=== PATIENT | male | born 2000 | race Two or more races ===

== ENCOUNTER 2021-04-23 11:56 | Inpatient (IN) ==
[2021-04-23] MEDS ORDERED: ACETAMINOPHEN 1,000 MG/100 ML VIAL IV STA (12:27)
[2021-04-23] MEDS ORDERED: KETOROLAC TROMETHAMINE 15 MG/ML VIAL IV STA (12:27)
[2021-04-23] MEDS ORDERED: SODIUM CHLORIDE 0.9% 1000ML 1,000 ML IV ONE (12:27)
[2021-04-23] MEDS ORDERED: FAMOTIDINE 20MG IV PUSH 20 MG/5 ML SYR IV STA (12:28)
--- NOTE | 2021-04-23 12:45 | Emergency Department Note ---
Impression & Plan Myocarditis, Pericarditis, Elevated troponin ED Provider Note NAME: CATRACHITA ESPINO AGE: 20 SEX: M ARRIVES VIA: Walk-In INFORMANT: Patient ED PROVIDER(S): Donell Coreas MD CHIEF COMPLAINT: Chest pain, SOB PLAN: Disposition: Admit. MEDICAL DECISION MAKING: The patient is a pleasant 20-year-old gentleman with a past medical history of bipolar disorder on lithium who presents to the emergency department for evaluation of left-sided chest pain that radiates to his shoulder and jaw that began last night and has been constant. He reports some mild associated shortness of breath. He reports prior history of smoking but quit in the past year. He reports he has a family history of stroke but denies any family history of early heart disease or known family history of clotting disorder. He denies any recent immobilization, prolonged travel. He denies any recent cough, congestion, fevers, chills. He is vaccinated for COVID-19 with 2 dose series but has yet to receive his booster. On arrival the patient is no acute distress, afebrile with heart rate in the 100s and blood pressure 160-180s/100s in the setting of discomfort. He appears clinically dry. EKG without overt acute ischemia; no LA depressions, ST elevation. Negative Sp odick's sign. CXR negative for acute cardiopulmonary process. WBC 4.2K nonspecific. H/H and platelets within normal limits. Chemistry without metabolic acidosis. Electrolytes and LFTs unremarkable. The patient's troponin was elevated at 8.7. D-dimer was undetectable. Ruhenstroth level was not elevated. COVID-19 RNA, CHRIS test was negative. CTA of the chest was performed and was negative for PE or infiltrates. No pericardial effusion is noted. Upon reevaluation the patient did feel improved after IV fluid hydration, APAP, Toradol as well as Pepcid. He was given aspirin given his troponin elevation. However given the patient's description of symptoms which are worse when he is supine suspect symptoms are most likely related to a brad-myocarditis. Case was discussed with Dr. Calhoun, [place] cardiology on-call. Appreciate consultation. Agrees that ACS is not likely and so no need for heparin at this time. Agrees with trial of colchicine. He will order an echo for further evaluation. Patient agrees with plan for admission for further evaluation and management. Case was d/w Dr. North, [facility] hospitalist who will evaluate the patient for admission. Triage Nursing notes reviewed and agree them. Prior medical records reviewed Vital Signs: reviewed and remarkable for hypertension. Differential diagnosis: Cardiac ischemia, aortic dissection, pulmonary embolism, pneumothorax, pneumonia, pericarditis, myocarditis, esophageal rupture, GERD, cholecystitis, pancreatitis, musculoskeletal, as well as other pathologies. ER treatment provided: See below. Diagnostics interpreted by me: ECG: Normal sinus rhythm, 70 bpm, no ectopy, no overt ST elevation or depression, QTC 423, QRS 82. Cardiac Monitoring: An order for continuous cardiac monitoring was placed and demonstrated Normal sinus rhythm, 70 bpm, no ectopy. Laboratory studies: See below Imaging studies: See below Consultation(s): Dr. Calhoun, [place] [facility]ology on-call. Case was d/w Dr. North, [facility] hospitalist who will evaluate the patient for admission. HPI: The patient is a pleasant 20-year-old gentleman with a past medical history of bipolar disorder on lithium who presents to the emergency department for evaluation of left-sided chest pain that radiates to his shoulder and jaw that began last night and has been constant. He reports some mild associated shortness of breath. He reports prior history of smoking but quit in the past year. He reports he has a family history of stroke but denies any family history of early heart disease or known family history of clotting disorder. He denies any recent immobilization, prolonged travel. He denies any recent cough, congestion, fevers, chills. He is vaccinated for COVID-19 with 2 dose series but has yet to receive his booster. ROS: See above HPI for pertinent positives & negatives. A total of 10 systems reviewed and were otherwise negative. PAST MEDICAL HISTORY:See Below PAST SURGICAL HISTORY:See Below FAMILY HISTORY:See Below SOCIAL HISTORY:See Below HOME MEDICATIONS:See Below ALLERGIES:See Below VITALS:See Below PHYSICAL EXAMINATION: GENERAL: Awake, alert, relatively well-appearing, in no distress HENT: Normocephalic, atraumatic. Oropharynx with dry mucous membranes and otherwise unremarkable. EYES: Normal conjunctiva. Sclera non-icteric. NECK: Supple. No nuchal rigidity. FROM. No JVD. RESPIRATORY: Clear to auscultation. CARDIAC: Regular rate, normal rhythm. Extremities warm and well perfused. Pulses equal. ABDOMEN: Soft, non-distended. No tenderness to palpation. No rebound or guarding. No masses. RECTAL: Deferred. MUSCULOSKELETAL: Chest examination reveals no tenderness. The back is symmetrical on inspection without obvious abnormality. There is no CVA tenderness to palpation. No joint edema. LOWER EXTREMITIES: Calves are equal size bilaterally and non-tender. No edema. No discoloration. NEURO: Normal sensorium. No sensory or motor deficits noted. SKIN: No rash or jaundice noted. ED COURSE: Critical Care: I have personally spent greater than 35 minutes of critical care time in the direct management of this patient. This includes bedside care, interpretation o f diagnostic studies, and testing, discussion with consultants, patient, and family members, and other required patient management activities. This 35 minutes is in excess of all separately billable procedures. Donell Coreas MD Past Med/Surg History Medical History Bipolar disorder Family History Other Stroke Social History Smoking Status: Former smoker Feels Safe at Home: Yes Allergies Allergies Allergy/AdvReac Type Severity Reaction Status Date / Time No Known Allergies Allergy Verified 04/23/21 15:46 Home Meds Home Medications Medication Instructions Recorded Confirmed lithium carbonate 450 mg 900 mg PO QPM 04/23/21 04/23/21 tablet,extended release lurasidone 20 mg tablet (Latuda) 20 mg PO DAILY 04/23/21 04/23/21 Results & Data (ED) Vital Signs Vital Signs - 24 hr 04/23/21 11:58 04/23/21 12:24 Temperature 36.2 C L Temperature Source Temporal Artery Scan Oral Pulse Rate 100 H Respiratory Rate 18 Respiratory Effort / Characteristics Non-Labored Non-Labored Respiratory Depth Normal Normal Blood Pressure 163/111 H Blood Pressure Mean 128 Pulse Oximetry 97 Oxygen Delivery Method Room Air Room Air Sepsis Recent Fever Within 48 Hours No Sepsis New/Unexplained Change in Mental Status No Sepsis Action Taken by Nursing No Action Required Laboratory Data Attestation: I reviewed the patient's lab results. Result diagrams: 04/23/21 12:45 04/23/21 12:45 Lab Results 02/23/22 02/23/22 02/23/22 Range/Units 12:45 12:45 12:45 WBC 4.28 L (4.8-10.8) K/uL RBC 5.07 (4.7-6.1) M/uL Hgb 14.0 (14.0-18.0) g/dL Hct 42.8 (42-52) % MCV 84.4 (80-100) fL MCH 27.6 (25-34) pg MCHC 32.7 (32-36) g/dL RDW Std Deviation 38.5 (36.4-46.3) fL RDW Coeff of J Luis 12.8 (11.5-14.5) % Plt Count 262 (130-400) K/uL MPV 10.0 (7.4-10.4) fL Immature Gran % (Auto) 0.5 % Neut % (Auto) 51.1 % Lymph % (Auto) 33.6 % [place] % (Auto) 12.9 % Eos % (Auto) 1.9 % Baso % (Auto) 0.0 % Neut # (Auto) 2.19 (1.4-6.5) K/uL Lymph # (Auto) 1.44 (1.2-3.4) K/uL [place] # (Auto) 0.55 (0.11-0.59) K/uL Eos # (Auto) 0.08 (0-0.5) K/uL Baso # (Auto) 0.00 (0-0.2) K/uL Immature Gran # (Auto) 0.02 (0.00-0.02) K/uL D-Dimer < 190 (0-500) ug/L FEU Sodium 135 L (136-145) mmol/L Potassium 3.9 (3.5-5.1) mmol/L Chloride 103 (98-107) mmol/L Carbon Dioxide 25 (21-32) mmol/L Anion Gap 7 (3-11) BUN 13 (6-23) mg/dl Creatinine 0.72 (0.6-1.4) mg/dl Est Cr Clr Drug Dosing 207.8 ml/min Est GFR ( Amer) > 150.0 ml/min Est GFR (Non-Af Amer) 135.2 ml/min BUN/Creatinine Ratio 18.1 (10-20) Glucose 93 (70-99(Fasting)) mg/dl Calcium 9.2 (8.5-10.1) mg/dl Phosphorus (2.5-4.9) mg/dl Magnesium 1.8 (1.7-2.4) mg/dl Total Bilirubin 0.8 (0.2-1.0) mg/dl AST 42 H (13-39) U/L ALT 26 (7-52) U/L Alkaline Phosphatase 89 (34-104) U/L Troponin I 8.77 H* (0-0.04) ng/ml Total Protein 7.2 (6.0-8.3) gm/dl Albumin 4.2 (3.4-5.0) gm/dl Globulin 3.0 (2.5-4.0) gm/dl Albumin/Globulin Ratio 1.4 (0.9-2) Lipase 7 L (11-82) U/L Ruhenstroth (0.6-1.2) mmol/L SARS-CoV-2, RNA, NAAT (NEGATIVE) 04/23/21 04/23/21 04/23/21 Range/Units 12:55 14:01 14:01 WBC (4.8-10.8) K/uL RBC (4.7-6.1) M/uL Hgb (14.0-18.0) g/dL Hct (42-52) % MCV (80-100) fL MCH (25-34) pg MCHC (32-36) g/dL RDW Std Deviation (36.4-46.3) fL RDW Coeff of J Luis (11.5-14.5) % Plt Count (130-400) K/uL MPV (7.4-10.4) fL Immature Gran % (Auto) % Neut % (Auto) % Lymph % (Auto) % [place] % (Auto) % Eos % (Auto) % Baso % (Auto) % Neut # (Auto) (1.4-6.5) K/uL Lymph # (Auto) (1.2-3.4) K/uL [place] # (Auto) (0.11-0.59) K/uL Eos # (Auto) (0-0.5) K/uL Baso # (Auto) (0-0.2) K/uL Immature Gran # (Auto) (0.00-0.02) K/uL D-Dimer (0-500) ug/L FEU Sodium (136-145) mmol/L Potassium (3.5-5.1) mmol/L Chloride (98-107) mmol/L Carbon Dioxide (21-32) mmol/L Anion Gap (3-11) BUN (6-23) mg/dl Creatinine (0.6-1.4) mg/dl Est Cr Clr Drug Dosing ml/min Est GFR ( Amer) ml/min Est GFR (Non-Af Amer) ml/min BUN/Creatinine Ratio (10-20) Glucose (70-99(Fasting)) mg/dl Calcium (8.5-10.1) mg/dl Phosphorus 2.8 (2.5-4.9) mg/dl Magnesium (1.7-2.4) mg/dl Total Bilirubin (0.2-1.0) mg/dl AST (13-39) U/L ALT (7-52) U/L Alkaline Phosphatase (34-104) U/L Troponin I (0-0.04) ng/ml Total Protein (6.0-8.3) gm/dl Albumin (3.4-5.0) gm/dl Globulin (2.5-4.0) gm/dl Albumin/Globulin Ratio (0.9-2) Lipase (11-82) U/L Ruhenstroth 0.4 L (0.6-1.2) mmol/L SARS-CoV-2, RNA, NAAT NEGATIVE (NEGATIVE) Administered Medications Discontinued Medications Aspirin (Aspirin Chew 324 Mg) 324 mg PO NOW STA Stop: 04/23/21 13:34 Last Admin: 04/23/21 13:38 Dose: 324 mg Documented by: [id number] Colchicine (Colchicine 0.6 Mg Tab) 0.6 mg PO NOW ONE Stop: 04/23/21 15:28 Last Admin: 04/23/21 16:06 Dose: 0.6 mg Documented by: [id number] Sodium Chloride (Nss 1000ml) 1,000 mls @ 999 mls/hr IV .Q1H1M ONE Stop: 04/23/21 13:27 Last Infusion: 04/23/21 13:41 Dose: 0 mls/hr Documented by: [id number] Admin: 04/23/21 12:40 Dose: 999 mls/hr Documented by: [id number] Acetaminophen (Ofirmev) 1,000 mg in 100 mls @ 400 mls/hr IV NOW STA Stop: 04/23/21 12:41 Last Infusion: 04/23/21 13:00 Dose: 0 mls/hr Documented by: [id number] Admin: 04/23/21 12:40 Dose: 400 mls/hr Documented by: [id number] Famotidine (Pepcid 20mg Iv Push) 20 mg in 5 mls @ 2.5 mls/min IV NOW STA Stop: 04/23/21 12:29 Last Admin: 04/23/21 12:40 Dose: 2.5 mls/min Documented by: [id number] Ioversol (Optiray 320 125ml) 118 ml IV ONCE ONE Stop: 04/23/21 14:24 Last Admin: 04/23/21 14:24 Dose: 118 ml Documented by: [id number] Ketorolac Tromethamine (Ketorolac Tromethamine 15 Mg/Ml Vial) 15 mg IV NOW STA Stop: 04/23/21 12:28 Last Admin: 04/23/21 12:40 Dose: 15 mg Documented by: [id number] Imaging Data Radiologist's Impression: Chest X-Ray 04/23/21 12:24 XR chest 1V portable HISTORY: Left-sided Chest Pain COMPARISON: None. FINDINGS: There are low lung volumes. Lungs are clear. No pleural effusions. No pneumothorax. No evidence for pulmonary edema. The cardiac silhouette is borderline enlarged. This may be accentuated by the low lung volumes and AP portable technique. IMPRESSION: Borderline cardiomegaly which may be accentuated by the low lung volumes and AP portable technique. ACT 112: Negative or not required by law. Electronically signed by: Angel Flores M.D. 04/23/2021 12:57 PM Chest CTA 04/23/21 13:33 CHEST CTA for PULMONARY ARTERIES CT DOSE: 523.94 mGycm HISTORY: Left-sided chest pain. Elevated troponin. TECHNIQUE: Multiaxial CT images of the chest were performed following the intravenous administration of contrast to evaluate the pulmonary arteries. Maximal intensity projection images were also obtained. A dose lowering technique was utilized adhering to the principles of ALARA. COMPARISON STUDY: None. FINDINGS: Normal caliber thoracic aorta with no evidence for dissection. The heart is normal in size. No pleural or pericardial effusions. No filling defects within the pulmonary arteries to suggest a pulmonary embolus. The thyroid gland enhances normally. Normal esophagus. Limited views of the upper abdomen demonstrate a normal liver, spleen, and visualized adrenal glands. Bilateral gynecomastia is noted. No mediastinal or hilar lymphadenopathy. No acute fractures. No pneumothorax. The central airways are patent. The lungs are clear. IMPRESSION: No evidence for pulmonary embolus. ACT 112: Negative or not required by law. Electronically signed by: Angel Flores M.D. 04/23/2021 2:53 PM Discharge Plan Visit Data Chief Complaint: Chest Pain Stated Complaint: CHEST PAIN, LT ARM AND SHOULDER PAIN ED Provider: Donell Coreas Discharge Problem: Myocarditis, Pericarditis, Elevated troponin Forms Stand Alone Forms: [employer] Prescriptions Prescriptions: No Action lithium carbonate 450 mg tablet extended release 900 mg PO QPM RF: 0 Latuda 20 mg tablet 20 mg PO DAILY RF: 0 Referrals Referrals: PCP,NO [Physician] - Discharge Problem: Myocarditis Qualifiers: Myocarditis type: unspecified Chronicity: acute Qualified Code(s): I40.9 - Acute myocarditis, unspecified Pericarditis Qualifiers: Pericarditis type: unspecified type Chronicity: acute Qualified Code(s): I30.9 - Acute pericarditis, unspecified
[2021-04-23 12:52] LABS: Eosinophils # (auto) 0.08 K/uL (0-0.5); Eosinophils % (auto) 1.9 %; Hematocrit (blood only) 42.8 % (42-52); Immature Granulocytes # (auto) 0.02 K/uL (0.00-0.02); Immature Granulocytes % (auto) 0.5 %; Lymphocytes # (auto) 1.44 K/uL (1.2-3.4); Lymphocytes % (auto) 33.6 %; Mean Corpuscular Hemoglobin 27.6 pg (25-34); Mean Corpuscular Hgb Conc 32.7 g/dL (32-36); Mean Corpuscular Volume 84.4 fL (80-100); Monocytes # (auto) 0.55 K/uL (0.11-0.59); Monocytes % (auto) 12.9 %; Neutrophils # (auto) 2.19 K/uL (1.4-6.5); Neutrophils % (auto) 51.1 %; Platelet Count 262 K/uL (130-400); RDW Coefficient of Variation 12.8 % (11.5-14.5); RDW Standard Deviation 38.5 fL (36.4-46.3); Red Blood Count 5.07 M/uL (4.7-6.1); White Blood Count 4.28 K/uL (4.8-10.8)
--- NOTE | 2021-04-23 12:58 | XRay Report ---
XR chest 1V portable HISTORY: Left-sided Chest Pain COMPARISON: None. FINDINGS: There are low lung volumes. Lungs are clear. No pleural effusions. No pneumothorax. No evid ence for pulmonary edema. The cardiac silhouette is borderline enlarged. This may be accentuated by t he low lung volumes and AP portable technique. IMPRESSION: Borderline cardiomegaly which may be accentuated by the low lung volumes and AP portable technique. ACT 112: Negative or not required by law. Electronically signed by: Angel Floers M.D. 04/23/2021 12:57 PM
[2021-04-23 13:02] LABS: D Dimer < 190 ug/L FEU (0-500)
[2021-04-23 13:15] LABS: Alanine Aminotransferase 26 U/L (7-52); Albumin Globulin Ratio 1.4 (0.9-2); Albumin Level 4.2 gm/dl (3.4-5.0); Alkaline Phosphatase 89 U/L (34-104); Anion Gap 7 (3-11); Aspartate Aminotransferase 42 U/L (13-39); BUN Creatinine Ratio 18.1 (10-20); Bilirubin,Total 0.8 mg/dl (0.2-1.0); Blood Urea Nitrogen 13 mg/dl (6-23); Calcium 9.2 mg/dl (8.5-10.1); Carbon Dioxide 25 mmol/L (21-32); Chloride 103 mmol/L (98-107); Creatinine Clr Calc Pharmacy 207.8 ml/min; Est GFR (African American) > 150.0 ml/min; Est GFR (Non-African American) 135.2 ml/min; Glucose 93 mg/dl (70-99(Fasting)); Lipase 7 U/L (11-82); Magnesium 1.8 mg/dl (1.7-2.4); Potassium 3.9 mmol/L (3.5-5.1); Sodium 135 mmol/L (136-145); Total Protein 7.2 gm/dl (6.0-8.3)
[2021-04-23 13:18] LABS: Troponin I 8.77 ng/ml (0-0.04)
[2021-04-23] MEDS ORDERED: ASPIRIN CHEW 324 MG PO STA (13:33)
[2021-04-23] MEDS ORDERED: OPTIRAY 320 125ml IV ONE (14:23)
--- NOTE | 2021-04-23 14:54 | CT Scan Report ---
CHEST CTA for PULMONARY ARTERIES CT DOSE: 523.94 mGycm HISTORY: Left-sided chest pain. Elevated troponin. TECHNIQUE: Multiaxial CT images of the chest were performed following the intravenous administration of contrast to evaluate the pulmonary arteries. Maximal intensity projection images were also obtaine d. A dose lowering technique was utilized adhering to the principles of ALARA. COMPARISON STUDY: None. FINDINGS: Normal caliber thoracic aorta with no evidence for dissection. The heart is normal in size. No pleural or pericardial effusions. No filling defects within the pulmonary arteries to suggest a p ulmonary embolus. The thyroid gland enhances normally. Normal esophagus. Limited views of the upper a bdomen demonstrate a normal liver, spleen, and visualized adrenal glands. Bilateral gynecomastia is n oted. No mediastinal or hilar lymphadenopathy. No acute fractures. No pneumothorax. The central airwa ys are patent. The lungs are clear. IMPRESSION: No evidence for pulmonary embolus. ACT 112: Negative or not required by law. Electronically signed by: Angel Flores M.D. 04/23/2021 2:53 PM
[2021-04-23] MEDS ORDERED: COLCHICINE 0.6 MG TAB PO ONE ×2 (15:27→21:00)
--- NOTE | 2021-04-23 16:30 | XCELERA ---
[id number]
[2021-04-23] MEDS ORDERED: MoRPHine SULFATE 2 MG/ML CARP IV STA (17:21)
[2021-04-23] MEDS ORDERED: ACETAMINOPHEN 325 MG TAB PO PRN (17:21)
--- NOTE | 2021-04-23 17:31 | History & Physical Report ---
Date of Service April 23, 2021 Assessment & Plan (1) Chest pain of uncertain etiology: Plan: Patient with arm pain, chest pain, jaw pain without dynamic ECG changes - ECHO with normal wall motion and EF 50-55% normal valves- no effusion - CTA of the chest negative for PE - Likely related to anne/myocarditis- Uncertain origin - CRP and ESR elevated - Morphine 2mg IV now - BP better controlled following appropriate cuff and medication - Follow ECG and Troponin levels ensure no follow on evidence of related heart failure - Anne/myocarditis- will treat with ASA 650 schedule, Colchine 1.2 mg tonight and then 0.6mg BID dosing to start tomorrow - If ECG does not change and no further evidence of possible ischemia- transition ASA to NSAID - Appreciate Cardiology consultation- discussed case on admission (2) Elevated troponin: Plan: Leading diagnosis at this time is anne/myocarditis - Continue to trend Troponin and ECG (3) Bipolar 1 disorder: Plan: Continue Latuda and [place] - [place] level low (4) Morbid obesity: Plan: BMI 40.2 - 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 History of Present Illness Primary Care Provider: [facility] 20 YOM with past medical history of: Bipolar, suicidal ideations, obesity. Patient comes to the EMD today for complaints of left arm pain, chest pain, jaw pain. This suddenly came on last evening around 1800 and has been constant pain this morning. The pain started in his arm, and then traveled to his shoulder chest and jaw and is sharp aching pain. He did not endorse that this was associated with nausea, dyspnea, or getting worse with walking. Patient also denies any change in pain with position changes or lying flat. In the EMD the patient had routine labs drawn to include Troponin I, ECG, ECHO, CTA of the chest and CXR. His Troponin I was noted to be 8.77, he was given 324mg Aspirin, following his ECHO and CTA of the chest, he was then given Toradol 15mg IV and Colchicine 6mg PO, that took his pain down from an 8-6-7. His ECG did not show any dynamic ST changes. Patient will be admitted to follow his Troponin I level, follow symptom relief. He has not had any new medications, or vaccinations. He denies any sick prodromes prior to last night. He denies any anxiety or stress. His Jaw pain is localized to one tooth on the bottom left and was also hurting him while he was chewing. Currently leading diagnosis is arthur/pericarditis. For his Bipolar disorder- he is on Latuda that was started in October 19 and had his dose adjusted once early in his prescription and reports that after that he had been well. His [place] was started in July 19 and has been stable dose. He has a family history that is significant for early CVA in his Mother when she was 19 years old and also is . He endorses the rest of his family has no other health complications. His COVID test on admission is: NEGATIVE Allergies Allergy/AdvReac Type Severity Reaction Status Date / Time No Known Allergies Allergy Verified 04/23/21 15:46 Home Medications Medication Instructions Recorded Confirmed Type lithium carbonate 450 mg 900 mg PO QPM 04/23/21 04/23/21 History tablet,extended release lurasidone 20 mg tablet (Latuda) 20 mg PO DAILY 04/23/21 04/23/21 History Past Med/Surg History Medical History Bipolar disorder Family History (Updated 04/23/21 @ 17:44 by JOAQUÍN Marie) Mother , CVA ~19years of age Stroke Social History Smoking Status: Former smoker Do You Dip or Chew Tobacco: No; Hx Substance Use: No Preferred Language: Persian Communication Ability: Effective 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 Beliefs That Will Affect Care: None Current Living Situation: Other Current Living Situation Comment: apartment with a roomate Other Information That Helps Us Care for You: No Feels Safe at Home: Yes Safety Concerns: Feels Safe At This Time Assistive Devices: None Review of Systems Review of Systems: REVIEW OF SYSTEMS: Constitutional: No fever, sweats or chills Eyes: No diplopia, no worsening or blurred vision ENT: (+) jaw pain, normal hearing, no trouble swallowing Respiratory: No cough, sputum, dyspnea at rest or on exertion Cardiovascular: (+) chest pain, shoulder pain, arm pain, tightness, NO palpitations Abdomen: No pain, nausea, vomiting, diarrhea or constipation Musculoskeletal: No joint pain, calf pain, swelling Neurologic: No weakness, numbness/tingling, or balance problems Psychiatric: No anxiety or depression Skin: No rash or itch Physical Exam Physical Exam: PHYSICAL EXAM: General: awake, alert, no apparent distress Head: Normocephalic, atraumatic ENT: PERRL, EOMI, no pharyngeal exudate, mucous membranes moist, no pharyngeal exudate, no lymphadenopathy, no abscess or erythema in lower jaw Neuro: AAO x 3, speech clear and appropriate, strength intact bilaterally 5/5, sensation intact and equal all extremities and dermatomes, no pronator drift Chest: equal rise and fall of the chest, no accessory muscle use, no heaves or thrills, Clear to auscultation, on room air, Cardiac: Regular rate and rhythm, telemetry reviewed- NSR, skin warm dry, cap refill <3 seconds, peripheral pulses +2 no JVD, no murmur, no rub, no change with pain with positional changes GI: NABS x 4 quadrants, soft, nontender to palpation, no rebound, guarding or tenderness : Spontaneously voiding, no pain, no CVA tenderness, Extremities: Normal inspection, no peripheral edema or erythema, calfs nontender to palpation Psych: Normal mood and affect Skin: no rash or erythema Results & Data Results & Data ([facility]) Vital Signs (Past 12 Hours) Vital Signs Temp Pulse Resp BP Pulse Ox 04/23/21 17:16 67 23 142/99 H 04/23/21 16:00 61 20 04/23/21 15:00 66 25 H 120/77 04/23/21 14:33 52 L 28 H 127/86 04/23/21 14:00 63 22 98 04/23/21 13:39 74 23 133/73 97 04/23/21 12:30 69 28 H 174/110 H 04/23/21 12:25 82 04/23/21 11:58 36.2 C L 100 H 18 163/111 H 97 Laboratory Results Abnormal lab results 04/23/21 04/23/21 04/23/21 Range/Units 12:45 12:45 12:45 WBC 4.28 L (4.8-10.8) K/uL ESR 32 H (0-15) mm/hr Sodium 135 L (136-145) mmol/L AST 42 H (13-39) U/L Troponin I 8.77 H* (0-0.04) ng/ml C-Reactive Protein (0-0.5) mg/dl Lipase 7 L (11-82) U/L [place] (0.6-1.2) mmol/L 04/23/21 04/23/21 Range/Units 14:01 14:01 WBC (4.8-10.8) K/uL ESR (0-15) mm/hr Sodium (136-145) mmol/L AST (13-39) U/L Troponin I (0-0.04) ng/ml C-Reactive Protein 0.74 H (0-0.5) mg/dl Lipase (11-82) U/L [place] 0.4 L (0.6-1.2) mmol/L Diagnostic Findings Chest X-Ray 04/23/21 12:24 XR chest 1V portable HISTORY: Left-sided Chest Pain COMPARISON: None. FINDINGS: There are low lung volumes. Lungs are clear. No pleural effusions. No pneumothorax. No evidence for pulmonary edema. The cardiac silhouette is borderline enlarged. This may be accentuated by the low lung volumes and AP portable technique. IMPRESSION: Borderline cardiomegaly which may be accentuated by the low lung volumes and AP portable technique. ACT 112: Negative or not required by law. Electronically signed by: Angel Flores M.D. 04/23/2021 12:57 PM Chest CTA 04/23/21 13:33 CHEST CTA for PULMONARY ARTERIES CT DOSE: 523.94 mGycm HISTORY: Left-sided chest pain. Elevated troponin. TECHNIQUE: Multiaxial CT images of the chest were performed following the intravenous administration of contrast to evaluate the pulmonary arteries. Max imal intensity projection images were also obtained. A dose lowering technique was utilized adhering to the principles of ALARA. COMPARISON STUDY: None. FINDINGS: Normal caliber thoracic aorta with no evidence for dissection. The heart is normal in size. No pleural or pericardial effusions. No filling defects within the pulmonary arteries to suggest a pulmonary embolus. The thyroid gland enhances normally. Normal esophagus. Limited views of the upper abdomen demonstrate a normal liver, spleen, and visualized adrenal glands. Bilateral gynecomastia is noted. No mediastinal or hilar lymphadenopathy. No acute fractures. No pneumothorax. The central airways are patent. The lungs are clear. IMPRESSION: No evidence for pulmonary embolus. ACT 112: Negative or not required by law. Electronically signed by: Angel Flores M.D. 04/23/2021 2:53 PM Medications Administered Discontinued Medications Aspirin (Aspirin Chew 324 Mg) 324 mg PO NOW STA Stop: 04/23/21 13:34 Last Admin: 04/23/21 13:38 Dose: 324 mg Documented by: [id number] Colchicine (Colchicine 0.6 Mg Tab) 0.6 mg PO NOW ONE Stop: 04/23/21 15:28 Last Admin: 04/23/21 16:06 Dose: 0.6 mg Documented by: [id number] Sodium Chloride (Nss 1000ml) 1,000 mls @ 999 mls/hr IV .Q1H1M ONE Stop: 04/23/21 13:27 Last Infusion: 04/23/21 13:41 Dose: 0 mls/hr Documented by: [id number] Admin: 04/23/21 12:40 Dose: 999 mls/hr Documented by: [id number] Acetaminophen (Ofirmev) 1,000 mg in 100 mls @ 400 mls/hr IV NOW STA Stop: 04/23/21 12:41 Last Infusion: 04/23/21 13:00 Dose: 0 mls/hr Documented by: [id number] Admin: 04/23/21 12:40 Dose: 400 mls/hr Documented by: [id number] Famotidine (Pepcid 20mg Iv Push) 20 mg in 5 mls @ 2.5 mls/min IV NOW STA Stop: 04/23/21 12:29 Last Admin: 04/23/21 12:40 Dose: 2.5 mls/min Documented by: [id number] Ioversol (Optiray 320 125ml) 118 ml IV ONCE ONE Stop: 04/23/21 14:24 Last Admin: 04/23/21 14:24 Dose: 118 ml Documented by: [id number] Ketorolac Tromethamine (Ketorolac Tromethamine 15 Mg/Ml Vial) 15 mg IV NOW STA Stop: 04/23/21 12:28 Last Admin: 04/23/21 12:40 Dose: 15 mg Documented by: [id number] ECG Additional Comments: Normal sinus rhythm Normal ECG No previous ECGs available Code Status & VTE Plan Code Status CODE: FULL VTE: SCDS, ambulation, asa VTE Prophylaxis Plan VTE Prophylaxis will be ordered: Yes Supervising Physician Co-Signing Physician Notes I personally saw and examined the patient. I verified all briggs points and agree with JOAQUÍN Hanks with the following exceptions and/or additions: 20 year old male here for chest pain with elevated troponin. Currently chest pain free after morphine when seen. Please see H&P above for full history. O/E HS1+2, no murmurs, Chest CTAB, Abdomen SNT, BS normal A/P Chest pain - Suspect perimyocarditis but main concern was lack of positional change and family history of his mother having a stroke at an early age. No NSAIDs. Agree with ASA and colchicine as treatment for pericarditis. Given normal LVEF no need to start lisinopril for myocarditis. Consult cardiology in AM. PG Care Time/CCT Total # of Minutes Spent Total Time Spent with Patient: Total time spent is greater than 50% in coordination of care (as documented) at patient's floor/unit and/or counseling patient: Coding Level of Care Code 84718 Initial Inpt Care Lvl 3 Diagnoses Elevated troponin R77.8 Bipolar 1 disorder F31.9 Chest pain of uncertain etiology R07.9 Morbid obesity E66.01
--- NOTE | 2021-04-23 17:39 | Electrocardiogram Report ---
Test Reason : Blood Pressure : / mmHG Vent. Rate : 070 BPM Atrial Rate : 070 BPM P-R Int : 148 ms QRS Dur : 082 ms QT Int : 392 ms P-R-T Axes : 050 067 038 degrees QTc Int : 423 ms Normal sinus rhythm Normal ECG No previous ECGs available Confirmed by Roderick Calhoun ([id number]) on 04/23/2021 5:38:44 PM Referred By: Confirmed By:Joel Calhoun
[2021-04-23] MEDS ORDERED: LITHIUM CARBONATE 450 MG TABCR PO SCH (21:00)
[2021-04-23] MEDS: ASPIRIN 325 MG ECTAB PO SCH (21:15)
[2021-04-24] MEDS ORDERED: MoRPHine SULFATE 2 MG/ML CARP IV PRN
[2021-04-24 03:04] LABS: Anion Gap 7 (3-11); BUN Creatinine Ratio 23.4 (10-20); Blood Urea Nitrogen 18 mg/dl (6-23); Carbon Dioxide 25 mmol/L (21-32); Chloride 106 mmol/L (98-107); Est GFR (African American) > 150.0 ml/min; Est GFR (Non-African American) 131.6 ml/min; Glucose 102 mg/dl (70-99(Fasting)); Potassium 4.1 mmol/L (3.5-5.1); Sodium 138 mmol/L (136-145)
[2021-04-24 03:07] LABS: Troponin I 12.52 ng/ml (0-0.04)
[2021-04-24 03:13] LABS: Basophils # (auto) 0.01 K/uL (0-0.2); Basophils % (auto) 0.2 %; Eosinophils # (auto) 0.13 K/uL (0-0.5); Eosinophils % (auto) 2.5 %; Hematocrit (blood only) 41.3 % (42-52); Hemoglobin 13.3 g/dL (14.0-18.0); Immature Granulocytes # (auto) 0.01 K/uL (0.00-0.02); Immature Granulocytes % (auto) 0.2 %; Lymphocytes # (auto) 2.26 K/uL (1.2-3.4); Lymphocytes % (auto) 44.1 %; Mean Corpuscular Hemoglobin 27.5 pg (25-34); Mean Corpuscular Hgb Conc 32.2 g/dL (32-36); Mean Corpuscular Volume 85.5 fL (80-100); Mean Platelet Volume 10.2 fL (7.4-10.4); Monocytes # (auto) 0.45 K/uL (0.11-0.59); Monocytes % (auto) 8.8 %; Neutrophils # (auto) 2.26 K/uL (1.4-6.5); Neutrophils % (auto) 44.2 %; Platelet Count 269 K/uL (130-400); RDW Coefficient of Variation 12.7 % (11.5-14.5); RDW Standard Deviation 39.6 fL (36.4-46.3); Red Blood Count 4.83 M/uL (4.7-6.1); White Blood Count 5.12 K/uL (4.8-10.8)
[2021-04-24] MEDS: ASPIRIN 325 MG ECTAB PO SCH ×2 (05:43→13:30)
[2021-04-24] MEDS ORDERED: COLCHICINE 0.6 MG TAB PO SCH (09:00)
[2021-04-24] MEDS ORDERED: LURASIDONE HCL 40 MG TAB PO SCH (09:00)
--- NOTE | 2021-04-24 11:26 | Electrocardiogram Report ---
Test Reason : Blood Pressure : / mmHG Vent. Rate : 064 BPM Atrial Rate : 064 BPM P-R Int : 142 ms QRS Dur : 098 ms QT Int : 442 ms P-R-T Axes : 035 052 025 degrees QTc Int : 455 ms Normal sinus rhythm When compared with ECG of 23-APR-2021 12:13, No significant change was found Confirmed by Roderick Calhoun ([id number]) on 04/24/2021 11:26:05 AM Referred By: REFERRED SELF Confirmed By:Joel Calhoun
--- NOTE | 2021-04-24 13:53 | Cardiology Consultation ---
Date of Consultation April 24, 2021 Assessment & Plan (1) Myocarditis: 1. Myocarditis: He did not have a lot of symptoms suggestive of pericarditis. However he clearly has an element of myocardial injury based on his elevated biomarkers. The etiology is likely viral. He did not endorse any recent toxin ingestion. Curiously, he did not endorse many other symptoms at all. He did make the comment that he thought he had some allergies leading up to this event and I take this to mean some upper respiratory symptoms. His symptoms have now resolved with nonsteroidal therapy in colchicine. His biomarkers are trending downward. He had some mild elevation in inflammatory markers as well. It is comforting that his EKG, telemetry and echocardiogram are all normal. At this point I think it is reasonable to continue scheduled nonsteroidal administration. He should also continue colchicine 0.6 mg twice daily. Will reassess him in the outpatient setting in a couple of weeks and repeat an echocardiogram. He should refrain from any strenuous physical activity or exercise for 3 months. Routine activity will be fine. Ideally we would consider cardiac MRI, but this is logistically and practical at this time. Depending on his clinical course we could consider this in the outpatient setting. History of Present Illness Reason for Consultation: Chest pain Requesting Physician: Mary Anne Attending Physician: Errol Mcclure DO History of Present Illness The patient is a 20-year-old gentleman without a known history of cardiac disease who began to experience symptoms chest, left arm and left neck discomfort 2 days ago. The patient states that his symptoms began around 6:00 p.m. and were fairly mild. However the baked came progressive over the course of the evening. He attempted to sleep but his symptoms were persistent. Based on the persistent nature of his symptoms [facility]. He states that at times the pain was quite severe. In the emergency room he was administered Toradol with mild improvement. He did not appear to have a significant pleuritic component but there was some positional component to his symptoms. Use of the left arm did not exacerbate these symptoms. He did not have associated dyspnea. He denies dizziness or lightheadedness. He denied any recent illness. He has not had any fevers recently. He denied significant upper respiratory symptoms. No co ughing. No sick contacts. No sense of palpitation. He does vape tobacco and occasionally marijuana. He did not report any other substance abuse. He has not done any recent traveling. He did not receive any recent vaccines. Allergies Allergy/AdvReac Type Severity Reaction Status Date / Time No Known Allergies Allergy Verified 04/23/21 15:46 Home Medications Medication Instructions Recorded Confirmed Type lithium carbonate 450 mg 900 mg PO QPM 04/23/21 04/23/21 History tablet,extended release lurasidone 20 mg tablet (Latuda) 20 mg PO DAILY 04/23/21 04/23/21 History Patient History Medical History Bipolar disorder Family History (Updated 04/23/21 @ 17:44 by JOAQUÍN Marie) Mother , CVA ~19years of age Stroke Social History Smoking Status: Former smoker Do You Dip or Chew Tobacco: No; Hx Substance Use: No Preferred Language: Irish Communication Ability: 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 No recent rashes. No joint pain. Physical Exam Physical Exam: The patient is alert and oriented. Mood and affect appeared normal. He answered all questions appropriately. HEENT: Pupils are equal and reactive to light and accommodation. Extraocular movements are intact. The sclerae are anicteric. Neuro: Cranial nerves intact Neck: Patient's neck is supple. He has palpable carotid pulses bilaterally without bruits on auscultation. There is no evidence of jugular venous distention. The thyroid is not enlarged. Lungs: Clear to auscultation bilaterally. He has good air movement without use of accessory muscles. No rales wheezes or rhonchi. Cardiac: Heart demonstrates a regular rate and rhythm. Normal S1 and S2. No murmurs on examination. Pulses: The patient has palpable radial pulses bilaterally that are equal in intensity Extremities: There was no evidence of hypoperfusion. There is no cyanosis or clubbing. There is no edema. Skin: I did not appreciate any rashes on examination today. Results & Data ([facility]) Vital Signs (Past 12 Hours) Vital Signs Temp Pulse Pulse Resp BP Pulse Ox 04/24/21 11:39 37.0 C 74 18 124/78 97 04/24/21 06:48 36.4 C L 71 18 97/62 L 97 04/24/21 06:19 65 04/24/21 03:00 36.6 C 61 18 112/69 98 Laboratory Results Abnormal Lab Results 04/23/21 04/23/21 04/23/21 12:45 14:01 14:01 WBC RBC Hgb Hct MCV MCH MCHC RDW Std Deviation RDW Coeff of J Luis Plt Count MPV Immature Gran % (Auto) Neut % (Auto) Lymph % (Auto) [place] % (Auto) Eos % (Auto) Baso % (Auto) Neut # (Auto) Lymph # (Auto) [place] # (Auto) Eos # (Auto) Baso # (Auto) Immature Gran # (Auto) ESR 32 H Sodium Potassium Chloride Carbon Dioxide Anion Gap BUN Creatinine Est Cr Clr Drug Dosing Est GFR ( Amer) Est GFR (Non-Af Amer) BUN/Creatinine Ratio Glucose Calcium Phosphorus 2.8 Magnesium Troponin I C-Reactive Protein Romeo 0.4 L 04/23/21 04/23/21 04/24/21 14:01 19:40 01:57 WBC RBC Hgb Hct MCV MCH MCHC RDW Std Deviation RDW Coeff of J Luis Plt Count MPV Immature Gran % (Auto) Neut % (Auto) Lymph % (Auto) [place] % (Auto) Eos % (Auto) Baso % (Auto) Neut # (Auto) Lymph # (Auto) [place] # (Auto) Eos # (Auto) Baso # (Auto) Immature Gran # (Auto) ESR Sodium 138 Potassium 4.1 Chloride 106 Carbon Dioxide 25 Anion Gap 7 BUN 18 Creatinine 0.77 Est Cr Clr Drug Dosing 194.0 Est GFR ( Amer) > 150.0 Est GFR (Non-Af Amer) 131.6 BUN/Creatinine Ratio 23.4 H Glucose 102 H Calcium 9.0 Phosphorus Magnesium 2.0 Troponin I 14.76 H* 12.52 H* C-Reactive Protein 0.74 H Romeo 04/24/21 04/24/21 01:57 07:40 WBC 5.12 RBC 4.83 Hgb 13.3 L Hct 41.3 L MCV 85.5 MCH 27.5 MCHC 32.2 RDW Std Deviation 39.6 RDW Coeff of J Luis 12.7 Plt Count 269 MPV 10.2 Immature Gran % (Auto) 0.2 Neut % (Auto) 44.2 Lymph % (Auto) 44.1 [place] % (Auto) 8.8 Eos % (Auto) 2.5 Baso % (Auto) 0.2 Neut # (Auto) 2.26 Lymph # (Auto) 2.26 [place] # (Auto) 0.45 Eos # (Auto) 0.13 Baso # (Auto) 0.01 Immature Gran # (Auto) 0.01 ESR Sodium Potassium Chloride Carbon Dioxide Anion Gap BUN Creatinine Est Cr Clr Drug Dosing Est GFR ( Amer) Est GFR (Non-Af Amer) BUN/Creatinine Ratio Glucose Calcium Phosphorus Magnesium Troponin I 8.62 H* C-Reactive Protein Romeo Diagnostic Findings Echocardiogram performed yesterday was essentially unremarkable. Normal LV function wall motion. ECG Additional Comments: I reviewed the EKGs obtained since admission. Normal EKGs. No significant ST or T-wave changes. PG Care Time/CCT Total # of Minutes Spent Total Time Spent with Patient: Total time spent is greater than 50% in coordination of care (as documented) at patient's floor/unit and/or counseling patient: Coding Level of Care Code 71272 Inpt Consult Level 4 Diagnoses Myocarditis I40.9 Chronicity: acute Myocarditis type: unspecified (1) Myocarditis Chronicity: acute Myocarditis type: unspecified Qualified Code(s): I40.9 - Acute myocarditis, unspecified
--- NOTE | 2021-04-24 14:10 | Discharge Summary ---
Date of Service April 24, 2021 Admission HPI Per Admitting Provider 20 YOM with past medical history of: Bipolar, suicidal ideations, obesity. Patient comes to the EMD today for complaints of left arm pain, chest pain, jaw pain. This suddenly came on last evening around 1800 and has been constant pain this morning. The pain started in his arm, and then traveled to his shoulder chest and jaw and is sharp aching pain. He did not endorse that this was associated with nausea, dyspnea, or getting worse with walking. Patient also denies any change in pain with position changes or lying flat. In the EMD the patient had routine labs drawn to include Troponin I, ECG, ECHO, CTA of the chest and CXR. His Troponin I was noted to be 8.77, he was given 324mg Aspirin, following his ECHO and CTA of the chest, he was then given Toradol 15mg IV and Colchicine 6mg PO, that took his pain down from an 8-6-7. His ECG did not show any dynamic ST changes. Patient will be admitted to follow his Troponin I level, follow symptom relief. He has not had any new medications, or vaccinati ons. He denies any sick prodromes prior to last night. He denies any anxiety or stress. His Jaw pain is localized to one tooth on the bottom left and was also hurting him while he was chewing. Currently leading diagnosis is arthur/pericarditis. For his Bipolar disorder- he is on Latuda that was started in October 19 and had his dose adjusted once early in his prescription and reports that after that he had been well. His [place] was started in July 19 and has been stable dose. He has a family history that is significant for early CVA in his Mother when she was 19 years old and also is . He endorses the rest of his family has no other health complications. His COVID test on admission is: NEGATIVE Principal Diagnosis perimyocarditis Discharge Exam GENERAL: 20 yo obese male. NAD. LUNGS: Clear to auscultation bilaterally w/o w/r/r CARDIOVASCULAR: Regular rate and rhythm w/o m/g/r ABDOMEN: Soft, non-tender and non-distended. Normal BS x 4 quad. EXTREMITIES: No edema. Non-tender. Peripheral pulses +2/4. NEUROLOGIC: A&O x3. PSYCHIATRIC: Cooperative. Appropriate mood and affect. SKIN: Warm, dry, intact. No rashes or lesions. Discharge Data Allergies Allergy/AdvReac Type Severity Reaction Status Date / Time No Known Allergies Allergy Verified 04/23/21 15:46 Consultations 04/23/21 15:27 ED Decision to Admit Stat 04/24/21 14:07 Consult Cardiology Routine Ordered Studies Chest X-Ray 04/23/21 12:24 XR chest 1V portable HISTORY: Left-sided Chest Pain COMPARISON: None. FINDINGS: There are low lung volumes. Lungs are clear. No pleural effusions. No pneumothorax. No evidence for pulmonary edema. The cardiac silhouette is borderline enlarged. This may be accentuated by the low lung volumes and AP portable technique. IMPRESSION: Borderline cardiomegaly which may be accentuated by the low lung volumes and AP portable technique. ACT 112: Negative or not required by law. Electronically signed by: Angel Flores M.D. 04/23/2021 12:57 PM Chest CTA 04/23/21 13:33 CHEST CTA for PULMONARY ARTERIES CT DOSE: 523.94 mGycm HISTORY: Left-sided chest pain. Elevated troponin. TECHNIQUE: Multiaxial CT images of the chest were performed following the intravenous administration of contrast to evaluate the pulmonary arteries. Maximal intensity projection images were also obtained. A dose lowering technique was utilized adhering to the principles of ALARA. COMPARISON STUDY: None. FINDINGS: Normal caliber thoracic aorta with no evidence for dissection. The heart is normal in size. No pleural or pericardial effusions. No filling defects within the pulmonary arteries to suggest a pulmonary embolus. The thyroid gland enhances normally. Normal esophagus. Limited views of the upper abdomen demonstrate a normal liver, spleen, and visualized adrenal glands. Bilateral gynecomastia is noted. No mediastinal or hilar lymphadenopathy. No acute fractures. No pneumothorax. The central airways are patent. The lungs are clear. IMPRESSION: No evidence for pulmonary embolus. ACT 112: Negative or not required by law. Electronically signed by: Angel Flores M.D. 04/23/2021 2:53 PM Echocardiogram 04/23/2021 interpretation summary: Left ventricular systolic function is normal. The left ventricular wall motion is normal. Borderline left atrial enlargement. Right ventricular systolic pressure is normal. There is no pericardial effusion. Hospital Course (1) Chest pain of uncertain etiology: Patient with arm pain, chest pain, jaw pain without dynamic ECG changes - ECHO with normal wall motion and EF 50-55% normal valves- no effusion - CTA of the chest negative for PE - Likely related to anne/myocarditis- Uncertain origin, suspect viral in nature - CRP and ESR elevated - Morphine 2mg IV given at time of admission for CP, currently CP free - BP better controlled following appropriate cuff and medication - Anne/myocarditis-treated with ASA and Colchine 1.2 mg on admission and then 0.6mg BID dosing to started today - No further evidence of ischemia, chest pain free, EKG nonacute, will transition off of ASA and start Ibuprofen - Cardiology consulted, appreciate Dr. Calhoun's recommendations, will follow up as an outpatient (2) Elevated troponin: Leading diagnosis at this time is anne/myocarditis - Peaked at 14 and is downtrending, most recent trop 8 - As above (3) Bipolar 1 disorder: Continue Latuda and [place] - [place] level low, f/u with prescribing physician for dose adjustment (4) Morbid obesity: BMI 40.2 - weight loss would be recommended to decrease mcfp CV risks At this time patient is medically and hemodynamically stable for discharge today. He has been seen by Dr. Calhoun who will plan to follow-up with him in the office. Bleeding discharge diagnosis is perimyocarditis likely resulting from a viral illness. Will discharge on 3-month course of colchicine and may utilize as needed ibuprofen for chest discomfort. Would avoid strenuous or highly exertional activities for the short term. [facility] within 1 week of discharge. Excuse for school written. Patient has also been seen and evaluated by Dr. Mcclure who is in agreement with the aforementioned. Total Time Total Time Spent Total Time Spent (In Minutes): >30 minutes Discharge Plan Discharge Items Patient Disposition: Home - Self-Care Reason For Visit: CHEST PAIN/ELEVATED TROPONIN I Discharge Diagnosis: Myocarditis--inflammation of the heart muscle--most likely due to a virus Activity: Resume your previous activity Non-emergency contact: Primary Care Provider Call non-emergency contact if: you have any medication questions and your symptoms worsen Follow-up/Referrals: Roderick Calhoun MD [Physician] - [facility] [Primary Care Provider] - Diet: Heart Healthy Addtl Attending Provider Instructions: You have been hospitalized due to inflammation in your heart that is most likely due to a viral illness that you had or were exposed to in the last several weeks. In order to treat this, you will be placed on a medicine called colchicine 0.6 mg taken twice daily. This medicine should be continued for the next 3 months. In the event that you develop GI side effects including nausea, vomiting, diarrhea, or abdominal pain would recommend decreasing this medication from twice per day to once per day. Your medicine has been sent to your pharmacy on file. Utilize Ibuprofen 600mg every 8 hours as needed for chest discomfort. We recommend that you follow-up with [facility] within 1 week of discharge. You should avoid any strenuous or highly exertional activities for right now. You will need to be reevaluated urgently in the event of further symptoms including worsening chest pain, shortness of breath, dizziness, palpitations, or passing out. Follow up with cardiology, Dr. Calhoun, as scheduled. Pending Studies at Discharge: No Stand-Alone Forms: My [facility] [employer], Work/School Release, Smoking Cessation Medications and DC Order Prescriptions: New colchicine [Colcrys] 0.6 mg Tablet 0.6 mg PO BID Qty: 60 RF: 1 ibuprofen 600 mg tablet 600 mg PO Q8H PRN (Reason: pain) Qty: 20 RF: 0 Continued lithium carbonate 450 mg tablet extended release 900 mg PO QPM RF: 0 Latuda 20 mg tablet 20 mg PO DAILY RF: 0 Discharge Orders: Discharge Order (Routine); Ordered 04/24/21 Ordered By: Mary Albarran Admission Data Admit Date/Time: 04/23/21 17:25 Attending Provider: Errol Mcclure Admit Provider: Kalin North Primary Care Provider: [facility] Other Providers: Kalin North ; Roderick Calhoun Other Interventions: Discharge Summary Assessment (RN) Last Done: 04/24/21 15:00 Supervising Physician Co-Signing Physician Notes I personally examined the patient and verified all briggs points of history and exam, discussed case, and agree with decision making with Oscar Albarran PAC Feeling better and would like to go home. Vitals noted. No distress. Exam otherwise as above. Myocarditis/pericarditisstable for home as above Coding Level of Care Code D/C DAY MANAGEMENT >30 MINS Diagnoses Chest pain of uncertain etiology R07.9 Elevated troponin R77.8 Bipolar 1 disorder F31.9 Morbid obesity E66.01
== END 2021-04-24 16:06 | disposition home or self-care (01) | DRG 316 ==
LOC: ED 11:56 → 2W 17:25 → SUATTDRO 17:25 → 2W 18:46

== ENCOUNTER 2021-07-25 02:18 | Observation (INO) ==
--- NOTE | 2021-07-25 02:32 | Emergency Department Note ---
History of Present Illness General Chief complaint: Cardiac Assessment Stated complaint: JAW, L ARM, CHEST AND BACK PAIN Time Seen by Provider: 07/25/21 02:23 History of Present Illness Maximum Pain Intensity: 6 21-year-old male with a history of myocarditis who is been evaluated by Dr. Oscar carreon and had a recent normal echocardiogram in May, presents to the emergency department stating similar symptoms to when he had myocarditis in April which are left jaw pain and left chest pain that radiates to his left arm. Patient states this started approximately 2-1/2 hours prior to arrival when he was getting ready to go to bed. Patient denies hemoptysis denies shortness of breath states mild nausea. Patient states that he has not been taking Motrin or colchicine for over a month now. Patient denies any recent trauma. Patient denies fever cough cold chest congestion. There are no other mitigating or alleviating factors Home Medications Medication Instructions Recorded Confirmed Type lithium carbonate 450 mg 900 mg PO QPM 04/23/21 07/25/21 History tablet,extended release lurasidone 20 mg tablet (Latuda) 20 mg PO DAILY 04/23/21 07/25/21 History ibuprofen 600 mg tablet 600 mg PO Q8H PRN #20 tab 04/24/21 07/25/21 Rx Allergies Allergy/AdvReac Type Severity Reaction Status Date / Time No Known Allergies Allergy Verified 07/25/21 02:29 Past Med/Surg History Medical History Bipolar disorder Family History Mother , CVA ~19years of age Stroke Social History Smoking Status: Former smoker Tobacco Type: Cigarettes Hx Substance Use: No Preferred Language: Marshallese Communication Ability: Effective Registered Nurse Obstetrics Required: No Beliefs That Will Affect Care: None Current Living Situation: Other Current Living Situation Comment: apartment with a roomate Feels Safe at Home: Yes Assistive Devices: None Immunizations: Past medical history includes myocarditis Review of Systems A total of 10 systems reviewed and were otherwise negative Constitutional: no fever Respiratory: no cough Physical Exam Vital Signs Vital Signs - 24 hr 07/25/21 02:21 Temperature 37.2 C Temperature Source Temporal Artery Scan Pulse Rate 78 Respiratory Rate 18 Respiratory Effort / Characteristics Non-Labored Spontaneous Respiratory Depth Normal Blood Pressure 161/93 H Blood Pressure Mean 115 Blood Pressure Position Sitting Pulse Oximetry 96 Oxygen Delivery Method Room Air Sepsis Recent Fever Within 48 Hours No Sepsis New/Unexplained Change in Mental Status No Sepsis Action Taken by Nursing No Action Required VITAL SIGNS - Vital signs and nursing notes were reviewed. GENERAL -21-year-old male appearing his stated age who is in no acute distress. Communicates well with provider and answers questions appropriately. SKIN - Without rashes. HEAD - NC/AT. EYES - PERRL with EOMI bilaterally. Sclera anicteric. Palpebral conjunctiva pink and moist with no injection noted. EARS - No deformities of external structures noted on gross examination bilaterally. NOSE - Midline and without cyanosis. No epistaxis or purulent drainage noted. MOUTH/OROPHARYNX - Without perioral cyanosis. NECK - Neck with FROM. Supple to palpation. LUNGS - Chest wall symmetric without accessory muscle use, intercostals retractions, or central cyanosis. Normal vesicular breath sounds CTA B/L. No wheezes, rales, or rhonchi appreciated. CARDIAC - RRR with S1/S2. No murmur, rubs, or gallops appreciated. ABDOMEN - Abdominal contour soft without pulsations or visible masses. BS n ormoactive all four quadrants. No tenderness, palpable masses, hepatosplenomegaly, or ascites noted. EXTREMITIES - No clubbing or peripheral cyanosis. 5/5 strength noted in UE/LE bilaterally. NEUROLOGIC - Cranial nerves II through XII grossly intact. Sensory intact to light touch throughout. PSYCH - A&Ox3 and cooperates fully with examiner. Pt is very pleasant and interacts well with examiner. Course Reevaluation(s) Reevaluation #1: Resting in no distress. Patient was given Toradol, aspirin, case was discussed with the hospitalist for admission; patient has a prior history of myocarditis suspect this could be a recurrence of myocarditis patient will not be started on IV heparin Time: 03:38 Administered Medications Discontinued Medications Ketorolac Tromethamine (Ketorolac 30 Mg/Ml Vial) 30 mg IV NOW STA Stop: 07/25/21 02:38 Last Admin: 07/25/21 02:49 Dose: 30 mg Documented by: [id number] Medical Decision Making Medical Records Attestation: I reviewed the patient's medical records. Laboratory Data Attestation: I reviewed the patient's lab results. Result diagrams: 07/25/21 02:38 07/25/21 02:38 Lab Results 07/25/21 07/25/21 07/25/21 Range/Units 02:38 02:38 02:38 WBC 5.84 (4.8-10.8) K/uL RBC 4.61 L (4.7-6.1) M/uL Hgb 13.1 L (14.0-18.0) g/dL Hct 38.6 L (42-52) % MCV 83.7 (80-100) fL MCH 28.4 (25-34) pg MCHC 33.9 (32-36) g/dL RDW Std Deviation 39.4 (36.4-46.3) fL RDW Coeff of J Luis 13.1 (11.5-14.5) % Plt Count 283 (130-400) K/uL MPV 10.7 H (7.4-10.4) fL Immature Gran % (Auto) 0.3 % Neut % (Auto) 45.0 % Lymph % (Auto) 43.3 % [place] % (Auto) 9.1 % Eos % (Auto) 2.1 % Baso % (Auto) 0.2 % Neut # (Auto) 2.63 (1.4-6.5) K/uL Lymph # (Auto) 2.53 (1.2-3.4) K/uL [place] # (Auto) 0.53 (0.11-0.59) K/uL Eos # (Auto) 0.12 (0-0.5) K/uL Baso # (Auto) 0.01 (0-0.2) K/uL Immature Gran # (Auto) 0.02 (0.00-0.02) K/uL PT 11.0 (9.0-12.0) Seconds INR 1.0 (0.9-1.1) Sodium 136 (136-145) mmol/L Potassium 3.6 (3.5-5.1) mmol/L Chloride 105 (98-107) mmol/L Carbon Dioxide 23 (21-32) mmol/L Anion Gap 8 (3-11) BUN 16 (6-23) mg/dl Creatinine 0.98 (0.6-1.4) mg/dl Est Cr Clr Drug Dosing 149.1 ml/min Est GFR ( Amer) 128.1 ml/min Est GFR (Non-Af Amer) 110.5 ml/min BUN/Creatinine Ratio 16.3 (10-20) Glucose 97 (70-99(Fasting)) mg/dl Calcium 9.4 (8.5-10.1) mg/dl Total Bilirubin 0.4 (0.2-1.0) mg/dl AST 15 (13-39) U/L ALT 16 (7-52) U/L Alkaline Phosphatase 83 (34-104) U/L Troponin I High Sens 93.7 H* (0-20) pg/ml Total Protein 7.1 (6.0-8.3) gm/dl Albumin 4.3 (3.4-5.0) gm/dl Globulin 2.8 (2.5-4.0) gm/dl Albumin/Globulin Ratio 1.5 (0.9-2) Imaging Data Attestation: I personally reviewed and interpreted this imaging study as follows: My Impression: Chest x-ray interpreted by me negative for infiltrate, normal mediastinum no obvious pneumothorax no pleural effusions ECG Data Attestation: I personally reviewed and interpreted this ECG as follows: Additional Comments: EKG interpreted by me normal sinus rhythm rate of 78 poor baseline no obvious ST segment elevation or depression normal intervals normal axis MDM Narrative Medical decision making differential diagnosis includes musculoskeletal chest pain pericarditis myocarditis anxiety metabolic derangement. I reviewed the richard corea's prior evaluations, cardiology consultation, recent echo at the end of May that was normal. We will check labs and EKG Impression & Plan Chest pain, Elevated troponin Discharge Plan Visit Data Chief Complaint: Cardiac Assessment Stated Complaint: JAW, L ARM, CHEST AND BACK PAIN ED Provider: Jose Marshall Discharge Problem: Chest pain, Elevated troponin Patient Disposition: Being Evaluated by Hospitalist Forms Stand Alone Forms: My [facility] [employer] Prescriptions Prescriptions: No Action lithium carbonate 450 mg tablet extended release 900 mg PO QPM RF: 0 Latuda 20 mg tablet 20 mg PO DAILY RF: 0 ibuprofen 600 mg tablet 600 mg PO Q8H PRN (Reason: pain) Qty: 20 RF: 0 Referrals Referrals: [facility] [Primary Care Provider] -
[2021-07-25] MEDS ORDERED: KETOROLAC 30 MG/ML VIAL IV STA (02:37)
[2021-07-25 02:58] LABS: Basophils # (auto) 0.01 K/uL (0-0.2); Basophils % (auto) 0.2 %; Eosinophils # (auto) 0.12 K/uL (0-0.5); Eosinophils % (auto) 2.1 %; Hematocrit (blood only) 38.6 % (42-52); Hemoglobin 13.1 g/dL (14.0-18.0); Immature Granulocytes # (auto) 0.02 K/uL (0.00-0.02); Immature Granulocytes % (auto) 0.3 %; Lymphocytes # (auto) 2.53 K/uL (1.2-3.4); Lymphocytes % (auto) 43.3 %; Mean Corpuscular Hemoglobin 28.4 pg (25-34); Mean Corpuscular Hgb Conc 33.9 g/dL (32-36); Mean Corpuscular Volume 83.7 fL (80-100); Mean Platelet Volume 10.7 fL (7.4-10.4); Monocytes # (auto) 0.53 K/uL (0.11-0.59); Monocytes % (auto) 9.1 %; Neutrophils # (auto) 2.63 K/uL (1.4-6.5); Platelet Count 283 K/uL (130-400); RDW Coefficient of Variation 13.1 % (11.5-14.5); RDW Standard Deviation 39.4 fL (36.4-46.3); Red Blood Count 4.61 M/uL (4.7-6.1); White Blood Count 5.84 K/uL (4.8-10.8)
[2021-07-25 03:25] LABS: Troponin I High Sensitivity 93.7 pg/ml (0-20)
[2021-07-25 03:28] LABS: Albumin Globulin Ratio 1.5 (0.9-2); Albumin Level 4.3 gm/dl (3.4-5.0); BUN Creatinine Ratio 16.3 (10-20); Bilirubin,Total 0.4 mg/dl (0.2-1.0); Calcium 9.4 mg/dl (8.5-10.1); Creatinine Clr Calc Pharmacy 149.1 ml/min; Est GFR (African American) 128.1 ml/min; Est GFR (Non-African American) 110.5 ml/min; Globulin 2.8 gm/dl (2.5-4.0); Potassium 3.6 mmol/L (3.5-5.1); Total Protein 7.1 gm/dl (6.0-8.3)
[2021-07-25] MEDS ORDERED: ASPIRIN 81 MG CHEW PO STA (03:35)
--- NOTE | 2021-07-25 03:49 | History & Physical Report ---
Date of Service July 25, 2021 Assessment & Plan (1) Chest pain: Plan: Kamryn Curiel is a 21yo male with PMHx significant for h/o myocarditis, obesity, Bipolar I disorder who presented to [facility] ED on 07/25 for chest pain. Chest Pain; Elevated Troponin Anginal symptoms occurring during rest, with hsTroponin 93.7 although EKG normal and CRP/ESR only minimally elevated. Suspect pericarditis vs myocarditis, rather than true ACS, in this young patient. - ordered lyme testing as well as Coxsackie B ab, respiratory Biofire, and DEEPIKA - will repeat hsTroponin now - Cardiology consulted - appreciate recs - TTE WNL last month - will hold on repeat TTE at this point in time - will give Colchicine 1.2g loading dose now - will defer to Cardiology for recs on further dosing - patient may be candidate for prophylactic Colchicine given recurrent episode - s/p Aspirin 324mg in ED - will defer to Cardiology for recs on further dosing - consider trending CRP/ESR Chronic Medical Conditions Bipolar I Disorder: continue home Latuda and [place] Obesity: counseled on lifestyle modifications for weight loss - recommend PCP follow up on this futher FEN/GI: regular diet DVT Prophylaxis: Lovenox BID (BMI >35) Code Status: full code Disposition: med/tele (2) Elevated troponin: (3) Bipolar 1 disorder: (4) Morbid obesity: History of Present Illness Chief Complaint: chest pain Primary Care Provider: [facility] Kamryn Curiel is a 21yo male with PMHx significant for h/o myocarditis, obesity, Bipolar I disorder who presented to [facility] ED on 07/25 for acute-onset left-sided chest pain radiating to left arm and left jaw for the last several hours - pain started while patient was lying down to go to sleep. Has seasonal allergies and does report a little more congestion and cough than usual over the last several days but does not think he was sick. Denies fever/chills. Denies positional change to pain - no relieving or aggravating factors. Denies recent sick contacts. Denies recent travel. Of note patient was admitted to [facility] in 04/2021 for arthur/pericarditis and improved clinically on Colchicine/Aspirin. Had TTE on 06/20/2021 with normal EF and no abnormalities. Colchicine was stopped ~1 month ago. In the ED the patient was mildly hypertensive and borderline tachycardic. Troponin 93.7. CRP 0.64/ESR 18. EKG without ST/T changes. CBC/CMP WNL. COVID-19 negative. CXR no acute cardiopulmonary process. Patient received Aspirin 324mg PO x1 and Toradol 30mg IV x1, after which his chest/arm/jaw pain completely resolved. Currently pain-free. Allergies Allergy/AdvReac Type Severity Reaction Status Date / Time No Known Allergies Allergy Verified 07/25/21 02:29 Home Medications Medication Instructions Recorded Confirmed Type lithium carbonate 450 mg 900 mg PO QPM 04/23/21 07/25/21 History tablet,extended release lurasidone 20 mg tablet (Latuda) 20 mg PO DAILY 04/23/21 07/25/21 History ibuprofen 600 mg tablet 600 mg PO Q8H PRN #20 tab 04/24/21 07/25/21 Rx Past Med/Surg History Medical History Bipolar disorder Family History Mother , CVA ~19years of age Stroke Social History Smoking Status: Former smoker Tobacco Type: Cigarettes Second Hand Exposure: No; Do You Dip or Chew Tobacco: No; Tobacco Cessation Education Requested by Patient: No Hx Alcohol Use: No Hx Substance Use: No Preferred Language: Romanian Communication Ability: Effective Compliance Representative Required: No Beliefs That Will Affect Care: None Current Living Situation: Other Current Living Situation Comment: roommate Other Information That Helps Us Care for You: No Feels Safe at Home: Yes Safety Concerns: Feels Safe At This Time Assistive Devices: None Review of Systems Review of Systems: All systems reviewed & are unremarkable except as noted in HPI & below Physical Exam Physical Exam: General: A&Ox3. NAD. Cooperative. Obese. HEENT: Atraumatic, normocephalic. Pulm: CTAB A&P. -wheezes, -rales, -rhonchi. Symmetrical chest rise. No increase work of breathing. No respiratory distress. Cardiac: RRR, -mrg. Radial pulses intact and symmetrical. No LE edema. Chest: no tenderness to palpation Abdominal: soft, non-tender, non-distended, BS x 4 Skin: warm, dry, no rash Results & Data Results & Data ([facility]) Vital Signs (Past 12 Hours) Vital Signs Temp Pulse Resp BP Pulse Ox 07/25/21 03:00 97 H 27 H 138/80 97 07/25/21 02:21 37.2 C 78 18 161/93 H 96 Supervising Physician Co-Signing Physician Notes Attending addendum: I have physically seen this patient, have supervised the medical residents activities, and agree with the H&P unless as otherwise noted. Assessment and Plan: Elevated troponin- Recent diagnosis of myocarditis/septic carditis The patient will be admitted to telemetry for serial cardiac enzymes, serial EKG's, cardiac rhythm monitoring Colchicine 1.2 g loading dose now, then 0.6 p.o. twice daily Aspirin 81 mg p.o. twice daily Order Lyme testing and coxsackie B Consult cardiology Bipolar 1 disorder- Continue Latuda and lithium Remaining orders and notations as noted Resident Activity Tracking Resident Involvement: Resident Care Provided Care Provided: Adult Hospital Medicine
[2021-07-25 04:09] LABS: C Reactive Protein 0.64 mg/dl (0-0.5); Magnesium 1.9 mg/dl (1.7-2.4)
[2021-07-25] MEDS ORDERED: COLCHICINE 0.6 MG TAB PO ONE ×2 (04:14→16:00)
[2021-07-25] MEDS ORDERED: NITROGLYCERIN SL 0.4 MG/TAB TAB SL PRN (04:18)
[2021-07-25] MEDS ORDERED: ACETAMINOPHEN 325 MG TAB PO PRN (04:18)
[2021-07-25 04:43] LABS: Lyme Ab IgG w/WB Rflx Negative (Negative); Lyme Ab IgM w/WB Rflx Negative (Negative)
--- NOTE | 2021-07-25 07:09 | XRay Report ---
XR chest 1V portable CLINICAL HISTORY: Atypical chest pain TECHNIQUE: Single frontal radiograph of the chest was obtained. Comparison: Prior chest radiograph 04/23/2021 FINDINGS: No lines and tubes are seen. The cardiomediastinal silhouette is normal. The lungs are clear. No evid ence of pleural effusion or pneumothorax. IMPRESSION: No acute chest disease. ACT 112: Negative or not required by law. Electronically signed by: Yariel Witt M.D. 07/25/2021 7:07 AM
[2021-07-25 07:33] LABS: Adenovirus PCR Not Detected (NotDetected); Bordetella parapertussis PCR Not Detected (NotDetected); Bordetella pertussis PCR Not Detected (NotDetected); Chlamydia pneumoniae PCR Not Detected (NotDetected); Coronavirus 229E PCR Not Detected (NotDetected); Coronavirus CoV-2 (COVID19)PCR Not Detected (NotDetected); Coronavirus HKU1 PCR Not Detected (NotDetected); Coronavirus NL63 PCR Not Detected (NotDetected); Coronavirus OC43PCR Not Detected (NotDetected); Human Metapneumovirus PCR Not Detected (NotDetected); Influenza A PCR Not Detected (NotDetected); Influenza B PCR Not Detected (NotDetected); Mycoplasma pneumoniae PCR Not Detected (NotDetected); Parainfluenza Virus 1 PCR Not Detected (NotDetected); Parainfluenza Virus 2 PCR Not Detected (NotDetected); Parainfluenza Virus 3 PCR Not Detected (NotDetected); Parainfluenza Virus 4 PCR Not Detected (NotDetected); Respiratory Syncytial VirusPCR Not Detected (NotDetected); Rhinovirus/Enterovirus PCR Not Detected (NotDetected)
--- NOTE | 2021-07-25 07:51 | Communication Note ---
Date of Service: July 25, 2021 Admitted in early AM for arthur/pericarditis. Cardiology consult -- low risk for cardiac worsening, agree with colchine + NSAIDs TTE - normal left ventricular function, no pericardial effusion, no valvular abnormalities daily ekg, troponin uptrending but not showing signs of ACS continue to monitor on PCU agree w above, d/w cardiology as well. home once troponin has peaked. was sleeping comfortably when i saw him - was admitted in the middle of the night Resident Activity Tracking Resident Involvement: Resident Care Provided Care Provided: Adult Hospital Medicine
[2021-07-25] MEDS: LURASIDONE HCL 40 MG TAB PO SCH (08:20)
[2021-07-25] MEDS: ENOXAPARIN INJ 40 MG/0.4 ML SYR SQ SCH ×2 (08:20→19:59)
--- NOTE | 2021-07-25 09:56 | Cardiology Consultation ---
Date of Consultation July 25, 2021 Assessment & Plan (1) Myopericarditis: 1. Mild pericarditis: I think this is the most accurate description of his presentation. While his symptoms and rise in biomarkers are certainly concerning for an acute coronary syndrome, his demographic, lack of coronary risk factors for a strong family history for coronary disease as well as the rapid resolution of symptoms with administration of Toradol all suggest myopericarditis. In the past there has been no evidence of significant myocarditis with any form of left ventricular dysfunction regional wall motion abnormalities. He has not presented with symptoms of heart failure. There has been no arrhythmias noted on telemetry. His presenting EKG was normal. The etiology of his injury is unclear. He only has very mildly elevated inflammatory markers. An DEEPIKA is pending. He has no other significant symptoms to support any other comorbidity. It is possible that discontinuation of his colchicine 1 month after his initial presentation was in adequate and this is simply recurrence of his initial process. Given the resolution of his symptoms think we can feel comfortable continuing colchicine. Provided his echocardiogram looks good we could continue 10 use some nonsteroidal medication as well for a week or 2. if he continues to have a normal echocardiogram without chamber dilation reduced LV function in his biomarkers are trending downward, I think he could be safely discharged home with follow-up in the outpatient setting. History of Present Illness Reason for Consultation: Chest pain, elevated troponin Requesting Physician: Susie Attending Physician: Errol Mcclure DO History of Present Illness the patient is a 21-year-old gentleman with a history mild pericarditis initially evaluated in April of 2021. At that time the patient presented wi th an episode of chest discomfort in elevated biomarkers. He was treated conservatively with nonsteroidal medications and colchicine. Echocardiogram obtained at that time did not reveal any regional wall motion abnormalities or reduced LV systolic function. Subsequently he did well without recurrence of his symptoms. Outpatient evaluation did not reveal any evidence of persistent injury. He repeat echocardiogram revealed preserved LV systolic function again without regional wall motion abnormality or chamber dilation. The patient states that he was doing quite well without cardiac symptoms. While he does not exercise regularly he is accustomed to routine activity and does not have symptoms of dyspnea or chest discomfort with at ascending stairs or walking with a backpack. He did not report any systemic symptoms recently. He has not reported a cold, upper respiratory symptoms or fevers. He is not aware of any sick contacts. He did not receive any recent vaccinations. Britney coppola, last evening while lying down to go to bed he began to experience chest and left shoulder pain. The symptoms are similar to those he presented with in April and he went to the emergency room for evaluation. It seems that his symptoms resolved quite rapidly after administration of Toradol. They have not recurred. This morning he is feeling well. No pleuritic chest pain symptoms. No difficulty breathing. No dizziness. No sense of palpitation. No current chest or arm pain. Allergies Allergy/AdvReac Type Severity Reaction Status Date / Time No Known Allergies Allergy Verified 07/25/21 02:29 Home Medications Medication Instructions Recorded Confirmed Type lithium carbonate 450 mg 900 mg PO QPM 04/23/21 07/25/21 History tablet,extended release lurasidone 20 mg tablet (Latuda) 20 mg PO DAILY 04/23/21 07/25/21 History ibuprofen 600 mg tablet 600 mg PO Q8H PRN #20 tab 04/24/21 07/25/21 Rx Patient History Medical History Bipolar disorder Family History Mother , CVA ~19years of age Stroke Social History Smoking Status: Former smoker Tobacco Type: Cigarettes Second Hand Exposure: No; Do You Dip or Chew Tobacco: No; Tobacco Cessation Education Requested by Patient: No Hx Alcohol Use: No Hx Substance Use: No Preferred Language: Ivorian Communication Ability: Effective Geophysical Support Specialist Required: No Beliefs That Will Affect Care: None Current Living Situation: Other Current Living Situation Comment: roommate Other Information That Helps Us Care for You: No Feels Safe at Home: Yes Safety Concerns: Feels Safe At This Time Assistive Devices: None Review of Systems Review of Systems: Per HPI. Physical Exam Physical Exam: The patient is alert and oriented. Mood and affect appeared normal. He answered all questions appropriately. HEENT: Pupils are equal and reactive to light and accommodation. Extraocular movements are intact. The sclerae are anicteric. Neuro: Cranial nerves intact Neck: Patient's neck is supple. He has palpable carotid pulses bilaterally without bruits on auscultation. There is no evidence of jugular venous distention. The thyroid is not enlarged. Lungs: Clear to auscultation bilaterally. He has good air movement without use of accessory muscles. No rales wheezes or rhonchi. Cardiac: Heart demonstrates a regular rate and rhythm. Normal S1 and S2. No murmurs on examination. No friction rub. Pulses: The patient has palpable radial pulses bilaterally that are equal in intensity Extremities: There was no evidence of hypoperfusion. There is no cyanosis or clubbing. There is no edema. Skin: I did not appreciate any rashes on examination today. Results & Data ([facility]) Vital Signs (Past 12 Hours) Vital Signs Temp Pulse Pulse Resp BP BP Pulse Ox 07/25/21 08:56 36.4 C L 67 16 126/76 98 07/25/21 05:57 50 L 07/25/21 05:00 36.5 C 69 58 L 18 129/77 111/72 95 07/25/21 04:00 58 L 22 126/76 97 07/25/21 03:00 97 H 27 H 138/80 97 07/25/21 02:21 37.2 C 78 18 161/93 H 96 Laboratory Results Abnormal Lab Results 07/25/21 07/25/21 07/25/21 02:38 02:38 02:38 WBC 5.84 RBC 4.61 L Hgb 13.1 L Hct 38.6 L MCV 83.7 MCH 28.4 MCHC 33.9 RDW Std Deviation 39.4 RDW Coeff of J Luis 13.1 Plt Count 283 MPV 10.7 H Immature Gran % (Auto) 0.3 Neut % (Auto) 45.0 Lymph % (Auto) 43.3 [place] % (Auto) 9.1 Eos % (Auto) 2.1 Baso % (Auto) 0.2 Neut # (Auto) 2.63 Lymph # (Auto) 2.53 [place] # (Auto) 0.53 Eos # (Auto) 0.12 Baso # (Auto) 0.01 Immature Gran # (Auto) 0.02 ESR PT 11.0 INR 1.0 Sodium 136 Potassium 3.6 Chloride 105 Carbon Dioxide 23 Anion Gap 8 BUN 16 Creatinine 0.98 Est Cr Clr Drug Dosing 149.1 Est GFR ( Amer) 128.1 Est GFR (Non-Af Amer) 110.5 BUN/Creatinine Ratio 16.3 Glucose 97 Calcium 9.4 Magnesium Total Bilirubin 0.4 AST 15 ALT 16 Alkaline Phosphatase 83 Troponin I High Sens 93.7 H* C-Reactive Protein Total Protein 7.1 Albumin 4.3 Globulin 2.8 Albumin/Globulin Ratio 1.5 Adenovirus (PCR) B. pertussis DNA (PCR) B.parapertussis DNA PCR Lyme Disease IgG Ab Lyme Disease IgM Ab C. pneumoniae DNA (PCR) Coronavirus OC43 (PCR) Coronavirus HKU1 (PCR) Coronavirus 229E (PCR) SARS-CoV-2 (PCR) Coronavirus NL63 (PCR) Human Metapneumovir PCR Influenza Type A (PCR) Influenza Type B (PCR) M. pneumoniae (PCR) Parainfluenza 1 (PCR) Parainfluenza 2 (PCR) Parainfluenza 3 (PCR) Parainfluenza 4 (PCR) RSV (PCR) Entero/Rhino (PCR) SARS-CoV-2, RNA, NAAT 07/25/21 07/25/21 07/25/21 02:38 02:38 02:38 WBC RBC Hgb Hct MCV MCH MCHC RDW Std Deviation RDW Coeff of J Luis Plt Count MPV Immature Gran % (Auto) Neut % (Auto) Lymph % (Auto) [place] % (Auto) Eos % (Auto) Baso % (Auto) Neut # (Auto) Lymph # (Auto) [place] # (Auto) Eos # (Auto) Baso # (Auto) Immature Gran # (Auto) ESR 18 H PT INR Sodium Potassium Chloride Carbon Dioxide Anion Gap BUN Creatinine Est Cr Clr Drug Dosing Est GFR ( Amer) Est GFR (Non-Af Amer) BUN/Creatinine Ratio Glucose Calcium Magnesium 1.9 Total Bilirubin AST ALT Alkaline Phosphatase Troponin I High Sens C-Reactive Protein 0.64 H Total Protein Albumin Globulin Albumin/Globulin Ratio Adenovirus (PCR) B. pertussis DNA (PCR) B.parapertussis DNA PCR Lyme Disease IgG Ab Negative Lyme Disease IgM Ab Negative C. pneumoniae DNA (PCR) Coronavirus OC43 (PCR) Coronavirus HKU1 (PCR) Coronavirus 229E (PCR) SARS-CoV-2 (PCR) Coronavirus NL63 (PCR) Human Metapneumovir PCR Influenza Type A (PCR) Influenza Type B (PCR) M. pneumoniae (PCR) Parainfluenza 1 (PCR) Parainfluenza 2 (PCR) Parainfluenza 3 (PCR) Parainfluenza 4 (PCR) RSV (PCR) Entero/Rhino (PCR) SARS-CoV-2, RNA, NAAT 07/25/21 07/25/21 07/25/21 03:37 06:22 06:44 WBC RBC Hgb Hct MCV MCH MCHC RDW Std Deviation RDW Coeff of J Luis Plt Count MPV Immature Gran % (Auto) Neut % (Auto) Lymph % (Auto) [place] % (Auto) Eos % (Auto) Baso % (Auto) Neut # (Auto) Lymph # (Auto) [place] # (Auto) Eos # (Auto) Baso # (Auto) Immature Gran # (Auto) ESR PT INR Sodium Potassium Chloride Carbon Dioxide Anion Gap BUN Creatinine Est Cr Clr Drug Dosing Est GFR ( Amer) Est GFR (Non-Af Amer) BUN/Creatinine Ratio Glucose Calcium Magnesium Total Bilirubin AST ALT Alkaline Phosphatase Troponin I High Sens 256.9 H* D C-Reactive Protein Total Protein Albumin Globulin Albumin/Globulin Ratio Adenovirus (PCR) Not Detected B. pertussis DNA (PCR) Not Detected B.parapertussis DNA PCR Not Detected Lyme Disease IgG Ab Lyme Disease IgM Ab C. pneumoniae DNA (PCR) Not Detected Coronavirus OC43 (PCR) Not Detected Coronavirus HKU1 (PCR) Not Detected Coronavirus 229E (PCR) Not Detected SARS-CoV-2 (PCR) Not Detected Coronavirus NL63 (PCR) Not Detected Human Metapneumovir PCR Not Detected Influenza Type A (PCR) Not Detected Influenza Type B (PCR) Not Detected M. pneumoniae (PCR) Not Detected Parainfluenza 1 (PCR) Not Detected Parainfluenza 2 (PCR) Not Detected Parainfluenza 3 (PCR) Not Detected Parainfluenza 4 (PCR) Not Detected RSV (PCR) Not Detected Entero/Rhino (PCR) Not Detected SARS-CoV-2, RNA, NAAT NEGATIVE Diagnostic Findings Chest x-rays obtained the time of admission which did not reveal any acute cardiopulmonary findings. Echocardiogram performed 04/23/2021 revealed only borderline left atrial enlargement without other abnormalities. Normal LV systolic function and wall motion. ECG Additional Comments: EKG the time admission revealed normal sinus rhythm with incomplete right bundle branch block. No change from prior EKGs. No evidence of injury. PG Care Time/CCT Total # of Minutes Spent Total Time Spent with Patient: Total time spent is greater than 50% in coordination of care (as documented) at patient's floor/unit and/or counseling patient: Coding Diagnoses Myopericarditis I31.9
--- NOTE | 2021-07-25 12:37 | XCELERA ---
[id number]
--- NOTE | 2021-07-25 15:46 | Electrocardiogram Report ---
Test Reason : Blood Pressure : / mmHG Vent. Rate : 078 BPM Atrial Rate : 078 BPM P-R Int : 146 ms QRS Dur : 086 ms QT Int : 392 ms P-R-T Axes : 046 044 025 degrees QTc Int : 446 ms Poor data quality, interpretation may be adversely affected Normal sinus rhythm Low voltage QRS Borderline ECG When compared with ECG of 24-APR-2021 06:47, No significant change was found Confirmed by Jermaine Davis ([id number]) on 07/25/2021 3:46:04 PM Referred By: REFERRED SELF Confirmed By:Jermaine Davis
[2021-07-25] MEDS ORDERED: LITHIUM CARBONATE 450 MG TABCR PO SCH (21:00)
--- NOTE | 2021-07-25 23:46 | Billing Data ---
Date of Service July 25, 2021 Coding Level of Care Code INT OBSERVATION CARE 70M LVL 3
--- NOTE | 2021-07-26 07:19 | Discharge Summary ---
Date of Service July 26, 2021 Admission HPI Per Admitting Provider Kamryn Curiel is a 21yo male with PMHx significant for h/o myocarditis, obesity, Bipolar I disorder who presented to [facility] ED on 07/25 for acute-onset left-sided chest pain radiating to left arm and left jaw for the last several hours - pain started while patient was lying down to go to sleep. Has seasonal allergies and does report a little more congestion and cough than usual over the last several days but does not think he was sick. Denies fever/chills. Denies positional change to pain - no relieving or aggravating factors. Denies recent sick contacts. Denies recent travel. Of note patient was admitted to [facility] in 04/2021 for arthur/pericarditis and improved clinically on Colchicine/Aspirin. Had TTE on 06/20/2021 with normal EF and no abnormalities. Colchicine was stopped ~1 month ago. In the ED the patient was mildly hypertensive and borderline tachycardic. Troponin 93.7. CRP 0.64/ESR 18. EKG without ST/T changes. CBC/CMP WNL. COVID-19 negative. CXR no acute cardiopulmonary process. Patient received Aspirin 324mg PO x1 and Toradol 30mg IV x1, after which his chest/arm/jaw pain completely resolved. Currently pain-free. Admission Exam Per Admitting Provider General: A&Ox3. NAD. Cooperative. Obese. HEENT: Atraumatic, normocephalic. Pulm: CTAB A&P. -wheezes, -rales, -rhonchi. Symmetrical chest rise. No increase work of breathing. No respiratory distress. Cardiac: RRR, -mrg. Radial pulses intact and symmetrical. No LE edema. Chest: no tenderness to palpation Abdominal: soft, non-tender, non-distended, BS x 4 Skin: warm, dry, no rash Principal Diagnosis myopericarditis Discharge Exam General: Grossly A&O. NAD. Cooperative. HEENT: Atraumatic, normocephalic. EOMI Pulm: CTAB. -wheezes, -rales, -rhonchi. Symmetrical chest rise. No respiratory distress. Cardiac: RRR, -mrg. No LE edema. Abdominal: Nontender, nondistended, soft. Discharge Data Allergies Allergy/AdvReac Type Severity Reaction Status Date / Time No Known Allergies Allergy Verified 07/25/21 02:29 Consultations 07/25/21 03:35 ED Decision to Admit Stat 07/25/21 04:18 Consult Cardiology Routine Ordered Studies Cardiac Enzymes 07/25/21 07/26/21 Range/Units 14:27 08:45 Troponin I High Sens 468.8 H* D 265.4 H* D (0-20) pg/ml Intake and Output 07/25/21 07/26/21 07/26/21 22:59 06:59 14:59 Intake Total 630 / 830 200 / 830 Balance 630 / 830 200 / 830 Intake: Oral 630 / 830 200 / 830 Other: # Unmeasured Voids 2 1 Weight 115.4 kg 115.4 kg Weight Measurement Method Built in [facility] Patient Weight 07/27/21 06:59 Weight 115.4 kg Chest X-Ray 07/25/21 02:30 XR chest 1V portable CLINICAL HISTORY: Atypical chest pain TECHNIQUE: Single frontal radiograph of the chest was obtained. Comparison: Prior chest radiograph 04/23/2021 FINDINGS: No lines and tubes are seen. The cardiomediastinal silhouette is normal. The lungs are clear. No evidence of pleural effusion or pneumothorax. IMPRESSION: No acute chest disease. ACT 112: Negative or not required by law. Electronically signed by: Yariel Witt M.D. 07/25/2021 7:07 AM Hospital Course (1) Chest pain: Kamryn Curiel is a 21yo male with PMHx significant for h/o myopericarditis in 04/2021, obesity, Bipolar I disorder who presented to [facility] ED on 07/25 for chest pain, thought to be possibly from myopericarditis, in setting of recent URI. Myopericarditis Anginal symptoms occurring during rest, EKG normal and CRP/ESR only minimally elevated. Suspect pericarditis vs myocarditis, rather than true ACS, in this young patient. - considered inadequate previous course of colchicine (1 month duration) - atypical antipsychotics (including Latuda) w/ possible association w/ myocarditis - ordered lyme testing as well as Coxsackie B ab, respiratory Biofire, and DEEPIKA. lyme testing neg. biofire neg. - hsTrop peaked in the 400s - repeat ecg w/ PRWP, also seen in 04/2021 ecg - Cardiology consulted - - TTE WNL last month - repeat TTE wnl - considered nsaids, but defer in setting of lithium use - no change in bipolar medications - colchicine; continue for 3 months Bipolar I Disorder: continue home Latuda and [place] Patient was full code this admission (2) Elevated troponin: (3) Bipolar 1 disorder: (4) Morbid obesity: (5) Myopericarditis: Total Time Total Time Spent Total Time Spent (In Minutes): <30 Discharge Plan Discharge Items Patient Disposition: Home - Self-Care Reason For Visit: CHEST PAIN Discharge Diagnosis: myopericarditis Activity: Per Instructions section Non-emergency contact: Primary Care Provider Call non-emergency contact if: you have any medication questions, your symptoms worsen and you have a fever Follow-up/Referrals: [place],[facility] [Primary Care Provider] - (hospital discharge follow up within 1 week) Diet: Regular Addtl Attending Provider Instructions: You were admitted to [facility] for myopericarditis, inflammation of your heart. The cause is unknown at this time. Your symptoms improved and the lab testing was reassuring (echocardiogram did not show changes the troponin marker decreased/peaked). The prescription has been sent to [facility]. Foll ow up with your PCP. EDIT: Because nsaids interact with lithium, will not be instructing to take scheduled nsaids. If you develop any new or worsening symptoms including fever, chills, sweats, chest pain, chest pressure, difficulty breathing, uncontrolled nausea/vomiting, rash, wheezing, passing out or nearly passing out, bleeding, black/bloody bowel movements, or other new or concerning symptoms please call your primary care physician, or call 911 for re-evaluation in the emergency department if you are very concerned. Pending Studies at Discharge: Yes Studies:: DEEPIKA, coxsackie testing Stand-Alone Forms: My [facility] [place], Smoking Cessation Medications and DC Order Prescriptions: New colchicine [Colcrys] 0.6 mg Tablet 0.6 mg PO BID 30 Days Qty: 60 RF: 3 Continued lithium carbonate 450 mg tablet extended release 900 mg PO QPM RF: 0 Latuda 20 mg tablet 20 mg PO DAILY RF: 0 ibuprofen 600 mg tablet 600 mg PO Q8H PRN (Reason: pain) Qty: 20 RF: 0 Discharge Orders: Discharge Order (Routine); Ordered 07/26/21 Ordered By: Jamshid Barone Admission Data Admit Date/Time: 07/25/21 04:18 Attending Provider: Errol Mcclure Admit Provider: Tank Srivastava Primary Care Provider: [place],[facility] Other Providers: Jermaine Davis ; Song Richards Other Interventions: Discharge Summary Assessment (RN) Last Done: 07/26/21 12:46 Supervising Physician Co-Signing Physician Notes I personally examined the patient and verified all briggs points of history and exam, discussed case, and agree with decision making with Dr Barone feeling better and up to going home, answered all questions to the best of my ability vitals noted nad heent nc at mmm breathing unlabored no accessory muscles good effort skin no rashes no pallor or icterus neuro no focal deficits myopericarditis -recurrent - biggest ddx being recurrence of index episode vs recurrence due to another viral/post viral syndrome given high prevalence of multitude of viruses at this time. far less likely but to be ruled out (labs pending) would be evidence of a more chronic autoimmune process such as lupus -echo reassuring, troponin trending down - stable for home, outpt PCP/cardiology follow up Resident Activity Tracking Resident Involvement: Resident Care Provided Care Provided: Adult Hospital Medicine
[2021-07-26] MEDS: LURASIDONE HCL 40 MG TAB PO SCH (08:09)
[2021-07-26] MEDS: ENOXAPARIN INJ 40 MG/0.4 ML SYR SQ SCH (08:10)
[2021-07-26] MEDS ORDERED: COLCHICINE 0.6 MG TAB PO SCH (09:00)
--- NOTE | 2021-07-26 17:20 | Billing Data ---
Date of Service July 26, 2021 Coding Level of Care Code 67341 OBS Care - Discharge
--- NOTE | 2021-07-26 17:21 | Billing Data ---
Date of Service July 26, 2021 Coding Level of Care Code 68315 OBS Care - Discharge
--- NOTE | 2021-07-27 13:28 | Electrocardiogram Report ---
Test Reason : Blood Pressure : / mmHG Vent. Rate : 055 BPM Atrial Rate : 055 BPM P-R Int : 144 ms QRS Dur : 092 ms QT Int : 460 ms P-R-T Axes : 045 071 015 degrees QTc Int : 440 ms Sinus bradycardia Poor R wave progression, consider anterior TX vs. lead placement vs. LVH Abnormal ECG When compared with ECG of 25-JUL-2021 02:33, Loss of R wave in V3, may be lead placement related. Confirmed by Marc Castillo ([id number]) on 07/27/2021 1:28:20 PM Referred By: REFERRED SELF Confirmed By:Marc Castillo
== END 2021-07-26 13:24 | disposition home or self-care (01) ==
LOC: ED 02:18 → 2S 02:18 → SUATTDRO 04:18 → 2S 05:19

== ENCOUNTER 2021-08-24 11:40 | Observation (INO) ==
--- NOTE | 2021-08-24 12:15 | Emergency Department Note ---
History of Present Illness General Chief complaint: Cardiac Assessment Stated complaint: PAIN IN LEFT ARM/JAW/CHEST Time Seen by Provider: 08/24/21 12:02 Source: patient History of Present Illness Provider complaint: Chest pain Onset (ago): hour(s) Location: chest Radiation: extremity and other (Jaw) Severity: mild Pain Consistency: + constant and + now resolved Maximum Pain Intensity: 4 Quality: + other (Pulsing) Relieved By: + medication (NSAIDs and colchicine) Associated symptoms: + chest pain; no cough, no fever/chills, no nausea/vomiting or no shortness of breath This is a 21-year-old male with a recent history of myopericarditis currently under treatment with colchicine presenting with similar symptoms. He states that he woke up at 5 AM this morning and had left-sided upper chest pain rating to his left arm and jaw. He had no associated shortness of breath. He described it as a pulsing pain which was mostly constant. He rates it a 4 out of 10 in severity. He took his NSAIDs and colchicine and now his symptoms are resolved. He has been compliant with his medications. He denies any recent fever, cough or cold symptoms, abdominal pain, vomiting, diarrhea, urinary symptoms or leg swelling or pain. He states that he is vaccinated for COVID-19 and last had a vaccination over a year ago. He initially had myopericarditis in April and then was readmitted in June because he stopped taking the colchicine. Home Medications Medication Instructions Recorded Confirmed Type lithium carbonate 450 mg 1,125 mg PO QPM 04/23/21 08/24/21 History tablet,extended release ibuprofen 600 mg tablet 600 mg PO Q8H PRN #20 tab 04/24/21 08/24/21 Rx colchicine 0.6 mg tablet (Colcrys) 0.6 mg PO BID 30 Days #60 tab 07/26/21 08/24/21 Rx Allergies Allergy/AdvReac Type Severity Reaction Status Date / Time No Known Allergies Allergy Verified 08/24/21 14:48 Past Med/Surg History Medical History Bipolar disorder Myopericarditis Family History Mother Stroke Social History Smoking Status: Former smoker Tobacco Type: Cigarettes Second Hand Exposure: No; Hx Alcohol Use: No Hx Substance Use: No Preferred Language: Finnish Communication Ability: Effective Motor Overhauler Required: No Beliefs That Will Affect Care: None Current Living Situation: Other Current Living Situation Comment: roommate Feels Safe at Home: Yes Assistive Devices: None Review of Systems See HPI for pertinent positives & negatives. and A total of 10 systems reviewed and were otherwise negative Physical Exam Vital Signs Vital Signs - 24 hr 08/24/21 11:53 08/24/21 12:14 08/24/21 13:41 Temperature 36.7 C Temperature Source Oral Pulse Rate 83 Pulse Rate [Apical] 74 Respiratory Rate 18 18 Respiratory Depth Normal Blood Pressure 153/107 H Blood Pressure [Left Arm] 128/64 Blood Pressure Mean 122 Blood Pressure Mean [Left Arm] 85 Blood Pressure Position Lying Pulse Oximetry 96 96 98 Oxygen Delivery Method Room Air Room Air Room Air Sepsis Recent Fever Within 48 Hours No Sepsis New/Unexplained Change in Mental Status No Sepsis Action Taken by Nursing No Action Required Constitutional: Vital signs reviewed. Eyes: Pupils are equal round reactive to light. Conjunctiva are noninjected. ENT: Pharynx is clear without erythema or exudate. Mucous membranes are moist. Neck supple without meningeal signs. Respiratory: Clear to auscultation bilaterally. Breath sounds are equal bilaterally. Cardiovascular: Regular rate and rhythm. No rubs or gallops. GI: Soft, nondistended and nontender. Bowel sounds are present. Musculoskeletal: No peripheral edema. No lower extremity tenderness. Integumentary: No cyanosis. or jaundice. Neurological: The patient is awake and alert. No focal deficits. Psychiatric: Normal affect. Not anxious appearing. Medical Decision Making Differential Diagnosis Pericarditis, myocarditis, pleurisy, GERD, anxiety Medical Records Attestation: I reviewed the patient's medical records. I did perform a limited focused review of portions of the patient's old chart on the electronic medical record. 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 He has had a transthoracic echocardiogram both times and these were normal. He followed up with Dr. Calhoun of cardiology on August 05. His second admission was thought to be secondary to stopping the colchicine too early. His initial case was thought to be due to coxsackievirus. Home Medications Current Medication List: was personally reviewed by me Laboratory Data Attestation: I reviewed the patient's lab results. Result diagrams: 08/24/21 12:08 08/24/21 12:08 Lab Results 08/24/21 08/24/21 08/24/21 Range/Units 12:08 12:08 13:20 WBC 4.97 (4.8-10.8) K/uL RBC 5.01 (4.7-6.1) M/uL Hgb 13.7 L (14.0-18.0) g/dL Hct 42.3 (42-52) % MCV 84.4 (80-100) fL MCH 27.3 (25-34) pg MCHC 32.4 (32-36) g/dL RDW Std Deviation 39.9 (36.4-46.3) fL RDW Coeff of J Luis 13.1 (11.5-14.5) % Plt Count 254 (130-400) K/uL MPV 10.9 H (7.4-10.4) fL Immature Gran % (Auto) 0.2 % Neut % (Auto) 46.5 % Lymph % (Auto) 37.8 % [place] % (Auto) 12.1 % Eos % (Auto) 3.2 % Baso % (Auto) 0.2 % Neut # (Auto) 2.31 (1.4-6.5) K/uL Lymph # (Auto) 1.88 (1.2-3.4) K/uL [place] # (Auto) 0.60 H (0.11-0.59) K/uL Eos # (Auto) 0.16 (0-0.5) K/uL Baso # (Auto) 0.01 (0-0.2) K/uL Immature Gran # (Auto) 0.01 (0.00-0.02) K/uL Sodium 134 L (136-145) mmol/L Potassium 3.9 (3.5-5.1) mmol/L Chloride 105 (98-107) mmol/L Carbon Dioxide 24 (21-32) mmol/L Anion Gap 5 (3-11) BUN 19 (6-23) mg/dl Creatinine 0.88 (0.6-1.4) mg/dl Est Cr Clr Drug Dosing 165.7 ml/min Est GFR ( Amer) 143.3 ml/min Est GFR (Non-Af Amer) 123.7 ml/min BUN/Creatinine Ratio 21.6 H (10-20) Glucose 95 (70-99(Fasting)) mg/dl Calcium 9.4 (8.5-10.1) mg/dl Total Bilirubin 0.6 (0.2-1.0) mg/dl AST 19 (13-39) U/L ALT 22 (7-52) U/L Alkaline Phosphatase 84 (34-104) U/L Troponin I High Sens 2279.2 H* D (0-20) pg/ml C-Reactive Protein < 0.50 (0-0.5) mg/dl Total Protein 7.2 (6.0-8.3) gm/dl Albumin 4.4 (3.4-5.0) gm/dl Globulin 2.8 (2.5-4.0) gm/dl Albumin/Globulin Ratio 1.6 (0.9-2) SARS-CoV-2, RNA, NAAT NEGATIVE (NEGATIVE) Imaging Data Radiologist's Impression: Chest X-Ray 08/24/21 12:11 XR chest 1V portable CLINICAL HISTORY: Atypical chest pain TECHNIQUE: Single frontal radiograph of the chest was obtained. Comparison: Comparison is made to 07/25/2021 FINDINGS: No lines and tubes are seen. The cardiomediastinal silhouette is normal. The lungs are clear. No evidence of pleural effusion or pneumothorax. IMPRESSION: No acute chest disease. ACT 112: Negative or not required by law. Electronically signed by: Yariel Witt M.D. 08/24/2021 12:31 PM ECG Data Attestation: I personally reviewed and interpreted this ECG as follows: Indication: + chest pain Rate (beats per minute): 72 Rhythm: + normal sinus ECG Lagrange: + Normal ECG ST segments: no ST elevation ECG Findings: + Other (Low voltage QRS); no PVCs MDM Narrative I did evaluate the patient as noted above. The patient is presenting with symptoms similar to his symptoms when he had myocarditis. He states that he took NSAIDs and colchicine and now they are resolved. IV access was established. I did place an order for continuous cardiac monitoring. The monitor showed normal sinus rhythm at a rate of 78 bpm. I did order and personally review the patient's 12-lead EKG as described above. He has no signs of ST elevations or DC depressions. He has no acute ischemia. He has low voltage QRS which is likely due to body habitus. He has had low voltage QRS on prior EKGs. He does not have any JVD or tracheal deviation. I did order and personally reviewed the images of the patient's chest x-ray as described above. I did order and review the patient's blood work [facility]. CBC is unremarkable without leukocytosis or anemia. His C- reactive protein is negative. CMP is remarkable for sodium of 134. High- sensitivity troponin is elevated at 2279. This is 10 times higher than it was when he was previously admitted in June. Looking at his chart he had a troponin of 6-8 with his initial admission in April. I did discuss the test results with the patient. I did recommend hospitalization for further care and evaluation. He is currently asymptomatic. I did order a COVID test. I did discuss case with the hospitalist and caseworker. I also discussed case with the internal communications manager on-call who recommended continuing colchicine, trending the troponin and obtaining echocardiogram in the morning. Impression & Plan Myopericarditis, Elevated troponin Discharge Plan Visit Data Chief Complaint: Cardiac Assessment Stated Complaint: PAIN IN LEFT ARM/JAW/CHEST ED Provider: Chencho Salmon Discharge Problem: Myopericarditis, Elevated troponin Patient Disposition: Being Evaluated by Hospitalist Forms Stand Alone Forms: My [facility] Prescriptions Prescriptions: No Action colchicine [Colcrys] 0.6 mg Tablet 0.6 mg PO BID 30 Days Qty: 60 RF: 3 lithium carbonate 450 mg tablet extended release 1,125 mg PO QPM RF: 0 ibuprofen 600 mg tablet 600 mg PO Q8H PRN (Reason: pain) Qty: 20 RF: 0 Referrals Referrals: [facility] [Primary Care Provider] -
--- NOTE | 2021-08-24 12:32 | XRay Report ---
XR chest 1V portable CLINICAL HISTORY: Atypical chest pain TECHNIQUE: Single frontal radiograph of the chest was obtained. Comparison: Comparison is made to 07/25/2021 FINDINGS: No lines and tubes are seen. The cardiomediastinal silhouette is normal. The lungs are clear. No evid ence of pleural effusion or pneumothorax. IMPRESSION: No acute chest disease. ACT 112: Negative or not required by law. Electronically signed by: Yariel Witt M.D. 08/24/2021 12:31 PM
[2021-08-24 12:35] LABS: Basophils # (auto) 0.01 K/uL (0-0.2); Basophils % (auto) 0.2 %; Eosinophils # (auto) 0.16 K/uL (0-0.5); Eosinophils % (auto) 3.2 %; Hematocrit (blood only) 42.3 % (42-52); Hemoglobin 13.7 g/dL (14.0-18.0); Immature Granulocytes # (auto) 0.01 K/uL (0.00-0.02); Immature Granulocytes % (auto) 0.2 %; Lymphocytes # (auto) 1.88 K/uL (1.2-3.4); Lymphocytes % (auto) 37.8 %; Mean Corpuscular Hemoglobin 27.3 pg (25-34); Mean Corpuscular Hgb Conc 32.4 g/dL (32-36); Mean Corpuscular Volume 84.4 fL (80-100); Mean Platelet Volume 10.9 fL (7.4-10.4); Monocytes % (auto) 12.1 %; Neutrophils # (auto) 2.31 K/uL (1.4-6.5); Neutrophils % (auto) 46.5 %; Platelet Count 254 K/uL (130-400); RDW Coefficient of Variation 13.1 % (11.5-14.5); RDW Standard Deviation 39.9 fL (36.4-46.3); Red Blood Count 5.01 M/uL (4.7-6.1); White Blood Count 4.97 K/uL (4.8-10.8)
[2021-08-24 12:52] LABS: Alanine Aminotransferase 22 U/L (7-52); Albumin Globulin Ratio 1.6 (0.9-2); Albumin Level 4.4 gm/dl (3.4-5.0); Alkaline Phosphatase 84 U/L (34-104); Anion Gap 5 (3-11); Aspartate Aminotransferase 19 U/L (13-39); BUN Creatinine Ratio 21.6 (10-20); Bilirubin,Total 0.6 mg/dl (0.2-1.0); Blood Urea Nitrogen 19 mg/dl (6-23); C Reactive Protein < 0.50 mg/dl (0-0.5); Calcium 9.4 mg/dl (8.5-10.1); Carbon Dioxide 24 mmol/L (21-32); Chloride 105 mmol/L (98-107); Creatinine Clr Calc Pharmacy 165.7 ml/min; Est GFR (African American) 143.3 ml/min; Est GFR (Non-African American) 123.7 ml/min; Globulin 2.8 gm/dl (2.5-4.0); Glucose 95 mg/dl (70-99(Fasting)); Potassium 3.9 mmol/L (3.5-5.1); Sodium 134 mmol/L (136-145); Total Protein 7.2 gm/dl (6.0-8.3)
[2021-08-24 12:56] LABS: Troponin I High Sensitivity 2279.2 pg/ml (0-20)
--- NOTE | 2021-08-24 14:43 | History & Physical Report ---
Date of Service August 24, 2021 Assessment & Plan (1) Chest pain: Plan: - Onset this morning, left-sided chest pain, left arm pain, left jaw/teeth pain associated with nausea. He states this is exactly how he presented last time when he was diagnosed with perimyocarditis. It is actually better with being upright and moving around, was worse when he was lying in bed this morning. Pain totally resolved with colchicine and ibuprofen. 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 - Initial hsTrop two 2279.2, repeat 2059.5. Without EKG changes such as ST segment deviation or T wave inversions. - Echo ordered per cardiology. - Lyme antibodies negative on last admission 1 month ago, we will repeat these, as well as check RPR and TSH. - We will consult cardiology for further evaluation and work-up. Appreciate the ir recommendations and assistance. - Observation on med/tele for now. (2) Myopericarditis: Plan: - Continue on colchicine 0.6 mg twice daily, ibuprofen 600 mg every 8 hours as needed. - Unknown etiology, was mildly positive for coxsackievirus, cardiology not entirely convinced this is the cause. ? if lithium may be inducing this. We will continue his medication now, however obviously if it is determined lithium is the cause of his myocarditis, would have to DC and continue other options for therapy. (3) Bipolar 1 disorder: Plan: - Continue lithium 1,125 mg at night. Plan: - OBS on med/tele. - SCDs for VTE ppx. - Full Code. History of Present Illness Chief Complaint: chest, left arm, jaw pain since this morning Primary Care Provider: [facility] Emmett Quiroz is a 21-year-old male with past medical history of bipolar 1 disorder and perimyocarditis initially diagnosed in April of this year who presents today with acute onset of left-sided chest pain this morning. Patient was sleeping, when he was awoken initially with left arm pain. He chalked this up to sleeping on it, went back to sleep in a different position, however about an hour later woke up with left-sided chest pain that continued to radiate into his arm and into his neck/jaw/teeth. He was little nauseous with this, however was not short of breath, without palpitations, no vomiting, lightheadedness, dizziness, or syncopal event. It felt very similar to how his perimyocarditis presented in the past, so he took colchicine and ibuprofen and had near immediate relief of his symptoms. He also notes that it was worse with laying down, however barely noticeable once upright and moving around. Denies recent viral illness, no recent vaccines, no recent strenuous activity. In ED, his vital signs have been and within normal limits and stable. His labs are significant for a troponin of 2079.2. Otherwise within normal notes, no leukocytosis, anemia, CRP is <0.50. COVID-negative. Hospital service was consulted for further evaluation and admission, case discussed with cardiology, recommending repeating an echocardiogram and repeat troponin. Allergies Allergy/AdvReac Type Severity Reaction Status Date / Time No Known Allergies Allergy Verified 08/24/21 14:48 Home Medications Medication Instructions Recorded Confirmed Type lithium carbonate 450 mg 1,125 mg PO QPM 04/23/21 08/24/21 History tablet,extended release ibuprofen 600 mg tablet 600 mg PO Q8H PRN #20 tab 04/24/21 08/24/21 Rx colchicine 0.6 mg tablet (Colcrys) 0.6 mg PO BID 30 Days #60 tab 07/26/21 08/24/21 Rx Past Med/Surg History Medical History Bipolar disorder Myopericarditis Family History Mother Stroke Social History Smoking Status: Never smoker Tobacco Type: Cigarettes Second Hand Exposure: No; Do You Dip or Chew Tobacco: No; Tobacco Cessation Education Requested by Patient: No Hx Alcohol Use: No Hx Substance Use: No Preferred Language: Hungarian Communication Ability: Effective Fig Caprifier Required: No Beliefs That Will Affect Care: None Current Living Situation: Alone and Other Current Living Situation Comment: roommate Other Information That Helps Us Care for You: No Feels Safe at Home: Yes Safety Concerns: Feels Safe At This Time Assistive Devices: Glasses Assistive Devices Comment: glasses Review of Systems Review of Systems: Constitutional: No fever/chills, weakness, fatigue, myalgias, anorexia, night sweats Eyes: No diplopia, no worsening or blurred vision ENT: normal hearing, no trouble swallowing Respiratory: No cough, sputum, dyspnea at rest or on exertion Cardiovascular: Left-sided chest pain with radiation to left arm, left neck/jaw/teeth; no chest tightness or palpitations Abdomen: Nauseous without abdominal pain, vomiting, diarrhea or constipation : Denies dysuria, hematuria, increased urgency/frequency, urinary retention Musculoskeletal: No joint pain, calf pain, swelling Neurologic: No weakness, numbness/tingling, or balance problems Psychiatric: No anxiety or depression Skin: No rash or itch Physical Exam Physical Exam: General: awake, alert, no apparent distress Head: Normocephalic, atraumatic ENT: PERRL, EOMI, no pharyngeal exudate, mucous membranes moist Chest: Clear to auscultation, on room air, no adventitious breath sounds Cardiac: Regular rate and rhythm, no murmur, no JVD, normal peripheral pulses, good capillary refill Abdominal: NABS x 4 quadrants, soft, nontender to palpation, no rebound, guarding or tenderness Extremities: Normal inspection, no peripheral edema or erythema, calfs nontender to palpation Psych: Normal mood and affect Neuro: AAO x 3, strength intact bilaterally and rated 5/5, no motor deficits, speech is clear, no peripheral sensory deficits Skin: no rash or erythema Results & Data Results & Data ([facility]) Vital Signs (Past 12 Hours) Vital Signs Temp Pulse Pulse Resp BP BP Pulse Ox 08/24/21 13:41 74 18 128/64 98 08/24/21 12:14 96 08/24/21 11:53 36.7 C 83 18 153/107 H 96 Laboratory Results Abnormal lab results 08/24/21 08/24/21 Range/Units 12:08 12:08 Hgb 13.7 L (14.0-18.0) g/dL MPV 10.9 H (7.4-10.4) fL [place] # (Auto) 0.60 H (0.11-0.59) K/uL Sodium 134 L (136-145) mmol/L BUN/Creatinine Ratio 21.6 H (10-20) Troponin I High Sens 2279.2 H* D (0-20) pg/ml Diagnostic Findings Chest X-Ray 08/24/21 12:11 XR chest 1V portable CLINICAL HISTORY: Atypical chest pain TECHNIQUE: Single frontal radiograph of the chest was obtained. Comparison: Comparison is made to 07/25/2021 FINDINGS: No lines and tubes are seen. The cardiomediastinal silhouette is normal. The lungs are clear. No evidence of pleural effusion or pneumothorax. IMPRESSION: No acute chest disease. ACT 112: Negative or not required by law. Electronically signed by: Yariel Witt M.D. 08/24/2021 12:31 PM ECG Additional Comments: Normal sinus rhythm with sinus arrhythmia Possible Left atrial enlargement Low voltage QRS Borderline ECG When compared with ECG of 26-JUL-2021 07:39, Criteria for Anterior infarct are no longer Present. Code Status & VTE Plan Code Status Full Code. Supervising Physician Co-Signing Physician Notes I personally saw and examined the patient. I verified all briggs points and agree with Valorie Ledezma PA-C with the following exceptions and/or additions: 21 year old male with previously diagnosed perimyocarditis with similar symptoms to two prior hospitalizations and increasing high sensitivity troponin. 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 Switch ibuprofen for toradol as this has helped his symptoms more so previously. Continue colchicine. Consult cardiology. Will add labs for lyme and syphilis. [place] levels with AM labs as this appears to be the only possible culprit for ongoing myocarditis which would make sense without elevated CRP although per literature search this only appears to cause myocarditis with hypersensitivity reaction which he is otherwise not having ie. no rash or eosinophilia. If no o ther cause found and continuing symptoms could consider trial off this with consent from psychiatry to switch to alternative mood stabilizer. PG Care Time/CCT Total # of Minutes Spent Total Time Spent with Patient: Total time spent is greater than 50% in coordination of care (as documented) at patient's floor/unit and/or counseling patient: Coding Level of Care Code INT OBSERVATION CARE 50M LVL 2 Diagnoses Chest pain R07.9 Myopericarditis I31.9 Bipolar 1 disorder F31.9
[2021-08-24] MEDS ORDERED: IBUPROFEN 600 MG TAB PO STA (15:24)
[2021-08-24] MEDS ORDERED: POLYETHYLENE (MIRALAX) 17 GM PACK PO PRN (15:55)
[2021-08-24] MEDS ORDERED: ONDANSETRON INJ 2 MG/ML 2 ML VIAL IV PRN (15:55)
[2021-08-24] MEDS ORDERED: IBUPROFEN 600 MG TAB PO PRN (15:55)
[2021-08-24 16:26] LABS: Lyme Ab IgG w/WB Rflx Negative (Negative); Lyme Ab IgM w/WB Rflx Negative (Negative)
[2021-08-24] MEDS ORDERED: KETOROLAC 30 MG/ML VIAL IV ONE (16:26)
--- NOTE | 2021-08-24 17:07 | XCELERA ---
[id number]
[2021-08-24] MEDS: PANTOprazole 40 MG TAB PO SCH (17:55)
[2021-08-24] MEDS ORDERED: LITHIUM CARBONATE 450 MG TABCR PO SCH (21:00)
[2021-08-24] MEDS: LITHIUM CARBONATE 450 MG TABCR PO SCH (21:23)
[2021-08-24] MEDS: COLCHICINE 0.6 MG TAB PO SCH (21:24)
--- NOTE | 2021-08-24 21:24 | Electrocardiogram Report ---
Test Reason : Blood Pressure : / mmHG Vent. Rate : 072 BPM Atrial Rate : 072 BPM P-R Int : 152 ms QRS Dur : 086 ms QT Int : 384 ms P-R-T Axes : 035 050 037 degrees QTc Int : 420 ms Poor data quality, interpretation may be adversely affected Normal sinus rhythm with sinus arrhythmia Possible Left atrial enlargement Low voltage QRS Borderline ECG When compared with ECG of 26-JUL-2021 07:39, Criteria for Anterior infarct are no longer Present Confirmed by Brooks Nye ([id number]) on 08/24/2021 9:24:41 PM Referred By: REFERRED SELF Confirmed By:Brooks Nye
[2021-08-24] MEDS: KETOROLAC TROMETHAMINE 15 MG/ML VIAL IV SCH (21:25)
[2021-08-25 00:16] LABS: Rapid Plasma Reagin Nonreactive (Nonreactive)
[2021-08-25] MEDS: KETOROLAC TROMETHAMINE 15 MG/ML VIAL IV SCH ×4 (05:11→21:47)
[2021-08-25] MEDS ORDERED: SERTRALINE HCL 50 MG TABLET PO SCH (09:00)
[2021-08-25] MEDS: COLCHICINE 0.6 MG TAB PO SCH ×2 (10:17→21:44)
[2021-08-25] MEDS: PANTOprazole 40 MG TAB PO SCH (10:17)
[2021-08-25] MEDS ORDERED: OPTIRAY 320 125ml IV ONE (10:32)
--- NOTE | 2021-08-25 10:43 | Electrocardiogram Report ---
Test Reason : Blood Pressure : / mmHG Vent. Rate : 067 BPM Atrial Rate : 067 BPM P-R Int : 144 ms QRS Dur : 090 ms QT Int : 402 ms P-R-T Axes : 029 057 032 degrees QTc Int : 424 ms Normal sinus rhythm Left atrial enlargement Low voltage QRS Nonspecific T wave abnormality Abnormal ECG When compared with ECG of 24-AUG-2021 12:01, No significant change was found Confirmed by Marc Castillo ([id number]) on 08/25/2021 10:42:52 AM Referred By: REFERRED SELF Confirmed By:Marc Castillo
[2021-08-25] MEDS ORDERED: MIDAZOLAM HCL 1 MG/ML 2ML VIAL ONE (12:07)
[2021-08-25] MEDS ORDERED: HEPARIN (PORCINE) 1000 UNIT/ML 10 ML (CATH LAB USE ONLY) ONE (12:07)
[2021-08-25] MEDS ORDERED: NITROGLYCERIN/D5W 100MCG/ML 20ML SYR ONE (12:07)
[2021-08-25] MEDS ORDERED: fentaNYL citrate 100 MCG/2 ML VIAL ONE (12:07)
[2021-08-25] MEDS ORDERED: niCARdipine HCL INJ 2.5 MG/ML 10 ML AMP ONE (12:07)
--- NOTE | 2021-08-25 12:45 | CT Scan Report ---
CT angio chest dissec wo/w con CLINICAL HISTORY: r/o aortic/left subclavian dissection TECHNIQUE: Multidetector row helical CT of the chest was performed before and after injection of IV c ontrast. Coronal and sagittal reformations were obtained. Automated dose lowering techniques and/or a djustment according to patient size were utilized for this exam. CT DOSE: 1272.86 mGycm Comparison: Comparison is made to CTA chest 04/23/2021 FINDINGS: Lungs and pleura: Normal. Heart and pericardium: Heart size is normal. No pericardial effusion. Vessels: No aortic dissection or intramural hematoma is seen. Mediastinum and connor: Subcentimeter lymph nodes are seen. A subcarinal node measures 8 mm. Chest wall and lower neck: Unremarkable. Abdomen: Unremarkable. Bones: Unremarkable. IMPRESSION: No acute abnormality and in particular no evidence of acute aortic injury. The left subclavian artery is normal. ACT 112: Negative or not required by law. Electronically signed by: Yariel Witt M.D. 08/25/2021 12:43 PM
[2021-08-25] MEDS ORDERED: ASPIRIN 81 MG CHEW ONE ×2 (15:36→15:38)
--- NOTE | 2021-08-25 16:25 | Pre Anesthesia Assessment ---
Date of Service August 25, 2021 Pre Sedation Assessment Vital Signs Temp Pulse Pulse Pulse Resp BP Pulse Ox 08/25/21 15:30 67 18 119/87 98 08/25/21 14:53 51 L 08/25/21 13:21 52 L 08/25/21 11:22 36.8 C 59 L 16 134/86 97 08/25/21 07:47 36.5 C 68 16 99/64 L 98 08/25/21 02:55 36.3 C L 54 L 18 118/71 98 08/24/21 22:52 36.7 C 61 18 103/69 98 08/24/21 22:23 77 08/24/21 20:06 37.3 C 61 18 133/81 98 Cardiovascular + regular rhythm and + bradycardic Respiratory + respiratory effort normal Pre-Sedation Airway Assessment Smoking Status: Never smoker Hx Sleep Apnea: No Hx Difficult Intubation: No Short, Thick Neck: No Thyromental Distance: > or= 3.5 Finger Breadths Oral Cavity: + WNL Mallampati Class: III ASA: ASA2 NPO Status Date of Last Intake of Fluids: 08/25/21 Time of Last Intake of Fluids: 08:00 Date of Last Intake of Solid Food: 08/25/21 Time of Last Intake of Solid Foods: 08:00 Procedure Planning Contraindications for Sedation: none Current Medications Reviewed: Yes Notes The planned sedation has been discussed with the patient. Informed Consent was obtained. I have identified the patient, determined the appropriateness of sedation and have assessed the patient immediately prior to the procedure. All medicine(s) and interventions are by my order.
--- NOTE | 2021-08-25 17:23 | Hospitalist Progress Note ---
Date of Service August 25, 2021 Assessment & Plan (1) Chest pain: Plan: - Onset this morning, left-sided chest pain, left arm pain, left jaw/teeth pain associated with nausea. He states this is exactly how he presented last time when he was diagnosed with perimyocarditis. It is actually better with being upright and moving around, was worse when he was lying in bed this morning. Pain totally resolved with colchicine and ibuprofen. 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 - Initial hsTrop two 2279.2, repeat 0.5. Without EKG changes such as ST segment deviation or T wave inversions. - Echo ordered per cardiology-EF 50-55%, no wma - Lyme antibodies negative on last admission 1 month ago, we will repeat these, as well as check RPR and TSH. - We will consult cardiology for further evaluation and work-up. Appreciate their recommendations and assistance. - maintain observation to med/tele - Trop peaked at 3917.6 and now downtrending to 1938 - CTA chest negative - s/p LHC with Dr. Calhoun, coronary arteries are normal but did have some spasm, uncertain if this could be contributing to his pain and elevated HS trops - Cardiology will consider initiation of CCB (2) Myopericarditis: Plan: - Continue on colchicine 0.6 mg twice daily, ibuprofen 600 mg every 8 hours as needed. - Unknown etiology, was mildly positive for coxsackievirus, cardiology not entirely convinced this is the cause. ? if lithium may be inducing this. We wi ll continue his medication now, however obviously if it is determined lithium is the cause of his myocarditis, would have to DC and continue other options for therapy. (3) Bipolar 1 disorder: Plan: - Continue lithium 1,125 mg at night. Plan: As above Monitor overnight Anticipate he will be able to be discharged tomorrow morning Plan d/w Dr. Craig Admission and Anticipated Discharge Date Admission Date: August 24, 2021 Subjective Patient was seen on daily rounds this morning. Reports that he has no chest pain or arm pain at present. Denies dyspnea. He is for heart catheterization today after CTA to exclude aortic pathology with Dr. Calhonu. Pt is asking when he can be discharged as he has a flight tomorrow evening (08/26) to travel back [place] to the [place] at 2130. Review of Systems Review of Systems: All systems reviewed and are unremarkable except as noted in HPI and below. Denies fever, chills, fatigue, headache, nasal congestion, sore throat, cough, chest pain, shortness of breath, palpitations, orthopnea, PND, abdominal pain, n/v/d, constipation, dysuria, hematuria, frequency, back pain, joint pain or swelling, easy bruising or bleeding, skin lesions or rashes. Physical Exam Physical Exam: GENERAL: 21yo Well-developed, well-nourished M. NAD. LUNGS: Clear to auscultation bilaterally. CARDIOVASCULAR: Regular rate and rhythm. ABDOMEN: Soft, non-tender and non-distended. No palpable masses. Bowel sounds normoactive x 4 quad. EXTREMITIES: No edema. Non-tender. Peripheral pulses +2/4. NEUROLOGIC: A&O x3. Nonfocal PSYCHIATRIC: Cooperative. Appropriate mood and affect. SKIN: Warm, dry, intact. No rashes or lesions. Results & Data Results & Data ([facility]) Vital Signs (Past 12 Hours) Vital Signs Temp Pulse Pulse Pulse Resp BP Pulse Ox 08/25/21 15:30 67 18 119/87 98 08/25/21 14:53 51 L 08/25/21 13:21 52 L 08/25/21 11:22 36.8 C 59 L 16 134/86 97 08/25/21 07:47 36.5 C 68 16 99/64 L 98 Laboratory Results 08/24/21 12:08 08/24/21 12:08 PG Care Time/CCT Total # of Minutes Spent Total Time Spent with Patient: Total time spent is greater than 50% in coordination of care (as documented) at patient's floor/unit and/or counseling patient: Coding Level of Care Code 69394 Subseq Obs Care Lvl 2 Diagnoses Chest pain R07.9 Myopericarditis I31.9 Bipolar 1 disorder F31.9
--- NOTE | 2021-08-25 17:37 | Cardiac Catheterization ---
[facility] Data: Wireless Network Engineer Cardiac Status Clinical evaluation leading to the procedure CAD Presenation: Non STEMI Diagnostic Physicians Name: Roderick Calhoun MD Closure Device Recommendations: Medical Therapy and/or Counseling Cardiac Cath Procedure Full Procedure Date August 25, 2021 Pre-Procedure Diagnosis Pre-Procedure Diagnosis: Non STEMI AUC Score AUC Score: 7 Post-Procedure Diagnosis Post-Procedure Diagnosis: Normal Coronary Arteries Procedure(s) Performed Procedure(s) Performed: Coronary Angiography and Left Heart Cath Reverberatory Skimmer Roderick Calhoun MD Manager Customer(s) none Estimated Blood Loss Estimated Blood Loss: 15cc Medication(s) Medication(s): Fentanyl, Heparin, Lidocaine 1%, Nicardipine, Nitroglycerin and Versed Summary of Findings Procedure performed: Left heart catheterization, selective coronary angiography Staff glost kiln placer: Roderick Calhoun MD Indication: The patient is a 21-year-old gentleman admitted for the third time with elevated cardiac biomarkers. He has typical symptoms of jaw and arm discomfort. Based on the recurrent nature of his symptoms and dramatic elevation in biomarkers he was brought to the catheterization suite for angiography. Procedure detail: The patient was informed of the risk benefits and alternatives to the intended procedure. He understood and wished to proceed. He was taken to the cardiac catheterization suite in a fasting state. Conscious sedation was administered per protocol and the patient was monitored electrocardiographically throughout today's procedure. The right radial area was prepped and draped in usual sterile fashion. This area was anesthetized using subcutaneous ministration of a lidocaine solution. The right radial artery was subsequently accessed using Seldinger technique and a sheath was placed over guidewire at this site. This sheath was used to facilitate passage of the coronary catheters for left heart catheterization and selective coronary angiography. Angiography was obtained in multiple orthogonal views prior to removal of the catheter and sheath. Hemost asis was achieved at the access site using manual pressure. The patient tolerated procedure well. There were no immediate complications. Equipment used: 5 [place] 4 5 [place]adian [place]-1 5 [place] 3 [facility] Findings: Coronary angiography Left main: Left main was very short but did bifurcate into the left anterior descending and left circumflex arteries. No stenosis. Left anterior descending colon left anterior descending was a large transapical vessel. It produced a large first diagonal and a small second diagonal branch. This vessel was normal without angiographic disease. Left circumflex: Left circumflex was a codominant vessel. It produced a diminutive first OM branch and a large second OM branch. There was a medium sized third OM branch and a large branching distal OM system. There were no luminal irregularities or evidence of disease in the circumflex distribution. Right coronary artery: The right coronary artery was relatively small but did produce a PDA and PLB branch. On initial injection there was spasm in the midportion. There were no luminal irregularities or discrete lesions in the right coronary artery. Repeat injection revealed resolution of the spasm. Impression: Codominant coronary system Short left main Normal left ventricular filling pressures No evidence of aortic stenosis Right coronary spasm with engagement of the coronary catheter No obstructive coronary disease or evidence of luminal irregularities. Hemodynamics Rest Ao:: 92/67 mmHg Final Ao: 100/69 mmHg LV: 109/3 mmHg with end-diastolic pressure of 11 mmHg Recommendations Recommendations: Medical Therapy and/or Counseling Specimens Specimens: None Radiation Exposure (mGy) 2679 Contrast (mls) 60 Procedural Complication(s) None Disposition PCU I attest to the content of the Intraoperative Record and any orders documented therein. Any exceptions are noted below. [facility] Card Cath Procedure Codes Cardiac Catheterization Procedure 1: Cardiovascular Cath Procedures: 22945 Coronaries and LHC (+/-LV) Moderate Sedation Procedure 1: Sedation/Anesthesia: 70333 Mod Sedation by the same physician;Init15 Min Child Age 5 & Up Procedure 2: Sedation/Anesthesia: 32639 Mod Sedation by the same physician; Ea [id number] Minutes PG Care Time/CCT Total # of Minutes Spent Total Time Spent with Patient: Total time spent is greater than 50% in coordination of care (as documented) at patient's floor/unit and/or counseling patient:
[2021-08-25] MEDS: SODIUM CHLORIDE 0.9% 1000ML 1,000 ML IV SCH (17:54)
--- NOTE | 2021-08-25 18:27 | Post Anesthesia Assessment ---
Date of Service August 25, 2021 Post Sedation Assessment Vital Signs Temp Pulse Pulse Pulse Resp BP Pulse Ox 08/25/21 18:15 77 08/25/21 17:26 36.6 C 59 L 18 120/73 96 08/25/21 15:30 67 18 119/87 98 08/25/21 14:53 51 L 08/25/21 13:21 52 L 08/25/21 11:22 36.8 C 59 L 16 134/86 97 08/25/21 07:47 36.5 C 68 16 99/64 L 98 08/25/21 02:55 36.3 C L 54 L 18 118/71 98 08/24/21 22:52 36.7 C 61 18 103/69 98 08/24/21 22:23 77 08/24/21 20:06 37.3 C 61 18 133/81 98 Recovery Score Activity: Moves 4 extremities Respiration: Deep Breath/Cough Circulation: +/-20% PreAnes Value Consciousness: Fully Awake Oxygen Saturation: > 92% On Room Air Discharge Sedation Level of Care: Fast Track Phase II Post Sedation Plan On clinical assessment, the patient appears to have tolerated the sedation without complications. Patient is recovering as anticipated. Patient will continue to be monitored by nursing and may be discharged when s edation discharge criteria are met per below protocol. Upon Completions of procedure up to 15 minutes continue every 5 minute vital signs and the P.A.R. score; then discharge to a Phase I or Fast Track to Phase II per the following guidelines: * Discharge Patient to appropriate Phase II area if PAR is 8 or greater or return to pre- procedure baseline. The post - procedure orders will be as directed. * If PAR score is less than 8 or not return to pre-procedure baseline then patient will follow Phase I monitoring till PAR is reached for Phase II. The Phase I may be done in procedure room or may call to secure a Phase I area. * If naloxone or flumazenil are used for reversal, hold in Phase I for continued monitoring from when last reversal dose was given for a minimum of 60 minutes or longer pending the nurse and/or physician discretion of patient condition before discharge to Phase II. Please call the Sedation Physician to re-evaluate and complete post-note for discharge to Phase II area. Do NOT discharge from procedure sedation or Phase 1 until post- sedation evaluation note is complete by procedure /sedation MD Sedation Discharge Instructions to be given to the patient at discharge to home.
--- NOTE | 2021-08-25 18:45 | Cardiology Progress Note ---
Date of Service August 25, 2021 Assessment & Plan (1) Elevated troponin: Plan: The etiology for his significantly elevated biomarkers is unclear. In the past has been attributed to mild pericarditis. However, the degree to which his biomarkers are elevated seems out of proportion to any level of inflammation. C reactive protein was actually normal. He is not really have pleuritic symptoms. His symptoms involve primarily jaw and left arm discomfort. He did have some minor recurrence after his initial admission which again resolved with Toradol. He is not appear to have a connective tissue disorder. DEEPIKA was been negative in the past. He does not have a leukocytosis or evidence of eosinophilia. RPR was nonreactive. Lyme disease was negative. Thyroid screen was normal. [place] level was within the normal range. Curiously, he did have coronary spasm on angiography today. While this can be a nonspecific finding, his symptoms would be consistent with spasm. Nitrates have never been tried consistently for relief. The fact that he had prolonged episode of symptoms yesterday and more marked elevation biomarker is would also fit this scenario. I think we should try some low-dose amlodipine. We should prescribe him some nitrates for p.r.n. use. I suppose there still they possibility of an infiltrative process and a cardiac MRI could be considered on an outpatient basis. I think we can obtain limited echocardiogram in the morning and if he is otherwise feeling well consider discharge. Admission and Anticipated Discharge Date Admission Date: August 24, 2021 Subjective the patient is a 21-year-old gentleman with a prior diagnosis of mild pericarditis. He was initially admitted in April of this year. At that time he had a very mild elevation in his biomarkers and symptoms consistent with pericarditis. An echocardiogram was normal and he was discharged on nonsteroidal medications and colchicine. He returned approximately 1 month ago with similar symptoms and slightly higher elevations in biomarkers. He had tested positive for Coxsackie virus and his recurrent symptoms and biomarker elevation was felt to be related to premature discontinuation of colchicine. He was restarted on nonsteroidals and colchicine but returned to the hospital yesterday evening. Patient states that early in the morning on July 24 he woke with left-sided jaw discomfort and left arm discomfort. There is some positional component, but he thought this might be musculoskeletal in nature. The symptoms more mild than he has experienced in the past. He did not have associated breathing difficulty. He attempted to work throughout the course of the day but his symptoms waxed and waned in severity and eventually thought that he should seek medical attention. In the emergency room he was administered Toradol with significant relief of his symptoms. He states that he did wake up quite diaphoretic couple of nights ago. He did not have associated chills and otherwise has been feeling well. He denies joint pains or rashes. He has not had pain at other sites. No gastrointestinal disturbances. No close sick contacts. He has not been doing any traveling outside the area. Review of Systems Review of Systems: Per HPI Physical Exam Physical Exam: The patient is alert and oriented. Mood and affect appeared normal. He answered all questions appropriately. HEENT: Pupils are equal and reactive to light and accommodation. Extraocular movements are intact. The sclerae are anicteric. Neuro: Cranial nerves intact Lungs: Clear to auscultation bilaterally. He has good air movement without use of accessory muscles. No rales wheezes or rhonchi. Cardiac: Heart demonstrates a regular rate and rhythm. Normal S1 and S2. No murmurs on examination. Pulses: The patient has palpable radial pulses bilaterally that are equal in intensity Extremities: There was no evidence of hypoperfusion. There is no cyanosis or clubbing. There is no edema. Skin: I did not appreciate any rashes on examination today. Results & Data ([facility]) Vital Signs (Past 12 Hours) Vital Signs Temp Pulse Pulse Pulse Resp BP Pulse Ox 08/25/21 18:15 77 08/25/21 18:11 63 18 116/86 97 08/25/21 17:26 36.6 C 59 L 18 120/73 96 08/25/21 15:30 67 18 119/87 98 08/25/21 14:53 51 L 08/25/21 13:21 52 L 08/25/21 11:22 36.8 C 59 L 16 134/86 97 08/25/21 07:47 36.5 C 68 16 99/64 L 98 Laboratory Results Abnormal Lab Results 08/24/21 08/24/21 08/25/21 14:53 22:49 07:45 Troponin I High Sens 3859.1 H* D [place] 1.1 RPR Nonreactive 08/25/21 08/25/21 07:45 14:40 Troponin I High Sens 3917.6 H* 1938.8 H* D [place] RPR Diagnostic Findings chest CTA performed today did not reveal any evidence of aortic pathology or left subclavian pathology. No pericardial effusion. Normal cardiac size. Essentially normal study. Cardiac catheterization performed this evening revealed normal coronary anatomy with normal intracardiac pressures. There was spasm of the right coronary artery with engagement which resolved later in the study. No obstructive lesions or evidence of erosion / dissection Echocardiogram performed yesterday revealed overall preserved LV systolic function without regional wall motion abnormalities. ECG Additional Comments: normal sinus rhythm with incomplete right bundle branch block. Unchanged from prior. No significant ST or T-wave changes. PG Care Time/CCT Total # of Minutes Spent Total Time Spent with Patient: Total time spent is greater than 50% in coordination of care (as documented) at patient's floor/unit and/or counseling patient: Coding Level of Care Code 83206 Subseq Obs Care Lvl 3 Diagnoses Elevated troponin R77.8
[2021-08-25] MEDS ORDERED: ACETAMINOPHEN 325 MG TAB PO PRN (19:46)
[2021-08-25] MEDS: LITHIUM CARBONATE 450 MG TABCR PO SCH (21:44)
[2021-08-26] MEDS: SODIUM CHLORIDE 0.9% 1000ML 1,000 ML IV SCH (02:04)
[2021-08-26] MEDS: KETOROLAC TROMETHAMINE 15 MG/ML VIAL IV SCH ×2 (03:38→10:00)
[2021-08-26] MEDS: COLCHICINE 0.6 MG TAB PO SCH (08:19)
[2021-08-26] MEDS: PANTOprazole 40 MG TAB PO SCH (08:19)
[2021-08-26] MEDS ORDERED: amLODIPine BESYLATE 5 MG TAB PO ONE (08:25)
--- NOTE | 2021-08-26 08:59 | Cardiology Progress Note ---
Date of Service August 26, 2021 Assessment & Plan (1) Elevated troponin: Plan: While there is no definite diagnosis for his notable elevation in biomarkers, the prospect of coronary artery spasm is consistent with both his symptoms and presentation. He did not appear to have an inflammatory process based on normal CRP. There has been no evidence of infection or eosinophilia. The initial diagnosis of myocarditis seemed consistent with his prior presentation, but his current presentation did not involve any real chest pain or pleuritic symptoms. He did have coronary spasm on cardiac catheterization yesterday. at this point I think he would be safe for discharge. I prescribed him a low dose of amlodipine to take this morning. If he is ambulatory and feeling well this afternoon I think he could safely go home on amlodipine 2.5 milligrams daily. He should contact our clinic if he does not feel well over the next few days with that medication. The primary concern would be mild hypotension or orthostatic symptoms. He should also be sent home with p.r.n. Sublingual nitroglycerin which he could use for recurrent episodes of chest discomfort. I think he should continue his current dose of colchicine until he returns for follow-up. Amlodipine does have some potential for interaction with his lithium level. Perhaps we could contact his primary physician and have this monitored more closely over the next few weeks. Admission and Anticipated Discharge Date Admission Date: August 24, 2021 Subjective This morning patient claims to be feeling well. He is ambulatory to the bathroom back without symptoms. He denies any recurrent left arm or shoulder discomfort. No symptoms at the right radial access site. Normal sensation in the right hand. Review of Systems Review of Systems: Per HPI Physical Exam Physical Exam: The patient is alert and oriented. Mood and affect appeared normal. He answered all questions appropriately. HEENT: Pupils are equal and reactive to light and accommodation. Extraocular movements are intact. The sclerae are anicteric. Neuro: Cranial nerves intact Lungs: normal respiratory effort Cardiac: Heart demonstrates a regular rate and rhythm. Pulses: The patient has palpable radial pulses bilaterally that are equal in intensity. no hematoma or ecchymosis at the right radial access site. Good perfusion of the right hand. Extremities: There was no evidence of hypoperfusion. There is no cyanosis or clubbing. There is no edema. Skin: I did not appreciate any rashes on examination today. Results & Data ([facility]) Vital Signs (Past 12 Hours) Vital Signs Temp Pulse Pulse Resp BP Pulse Ox 08/26/21 07:30 36.6 C 53 L 18 100/63 98 08/26/21 07:00 48 L 08/26/21 04:28 36.6 C 62 16 135/82 98 08/25/21 23:45 62 16 111/72 98 08/25/21 22:41 36.6 C 54 L 16 117/74 97 08/25/21 21:43 36.4 C L 54 L 16 122/80 96 Laboratory Results Abnormal Lab Results 08/25/21 14:40 Troponin I High Sens 1938.8 H* D PG Care Time/CCT Total # of Minutes Spent Total Time Spent with Patient: Total time spent is greater than 50% in coordination of care (as documented) at patient's floor/unit and/or counseling patient: Coding Level of Care Code 16510 Subseq Hosp Care Lvl 2 Diagnoses Elevated troponin R77.8
--- NOTE | 2021-08-26 11:17 | Discharge Summary ---
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 Patient was sleeping, when he was awoken initially with left arm pain. He chalked this up to sleeping on it, went back to sleep in a different position, however about an hour later woke up with left-sided chest pain that continued to radiate into his arm and into his neck/jaw/teeth. He was little nauseous with this, however was not short of breath, without palpitations, no vomiting, lightheadedness, dizziness, or syncopal event. It felt very similar to how his perimyocarditis presented in the past, so he took colchicine and ibuprofen and had near immediate relief of his symptoms. He also notes that it was worse with laying down, however barely noticeable once upright and moving around. Denies recent viral illness, no recent vaccines, no recent strenuous activity. In ED, his vital signs have been and within normal limits and stable. His labs are significant for a troponin of 2079.2. Otherwise within normal notes, no leukocytosis, anemia, CRP is <0.50. COVID-negative. Hospital service was consulted for further evaluation and admission, case discussed with cardiology, recommending repeating an echocardiogram and repeat troponin. Principal Diagnosis 1. Chest pain 2. Elevated troponins 3. Coronary artery spasms Discharge Exam GENERAL: 21yo Well-developed, well-nourished M. NAD. LUNGS: Clear to auscultation bilaterally. CARDIOVASCULAR: Regular rate and rhythm. ABDOMEN: Soft, non-tender and non-distended. BS normoactive x 4 quad. EXTREMITIES: No edema. Non-tender. Peripheral pulses +2/4. NEUROLOGIC: A&O x3. Nonfocal PSYCHIATRIC: Cooperative. Appropriate mood and affect. SKIN: Warm, dry, intact. No rashes or lesions. Discharge Data Allergies Allergy/AdvReac Type Severity Reaction Status Date / Time No Known Allergies Allergy Verified 08/24/21 14:48 Consultations 08/24/21 13:20 ED Decision to Admit Stat 08/24/21 15:55 Consult Cardiology Routine Procedures Performed Operation Date: 08/25/21 15:30 Actual Procedures p Cath, Left with Cors and Vent - Roderick Calhoun MD s Cineradiography w/Routine Exam - Roderick Calhoun MD Ordered Studies Chest X-Ray 08/24/21 12:11 XR chest 1V portable CLINICAL HISTORY: Atypical chest pain TECHNIQUE: Single frontal radiograph of the chest was obtained. Comparison: Comparison is made to 07/25/2021 FINDINGS: No lines and tubes are seen. The cardiomediastinal silhouette is normal. The lungs are clear. No evidence of pleural effusion or pneumothorax. IMPRESSION: No acute chest disease. ACT 112: Negative or not required by law. Electronically signed by: Yariel Witt M.D. 08/24/2021 12:31 PM Chest CTA 08/25/21 09:37 CT angio chest dissec wo/w con CLINICAL HISTORY: r/o aortic/left subclavian dissection TECHNIQUE: Multidetector row helical CT of the chest was performed before and after injection of IV contrast. Coronal and sagittal reformations were obtained. Automated dose lowering techniques and/or adjustment according to patient size were utilized for this exam. CT DOSE: 1272.86 mGycm Comparison: Comparison is made to CTA chest 04/23/2021 FINDINGS: Lungs and pleura: Normal. Heart and pericardium: Heart size is normal. No pericardial effusion. Vessels: No aortic dissection or intramural hematoma is seen. Mediastinum and connor: Subcentimeter lymph nodes are seen. A subcarinal node fiona sures 8 mm. Chest wall and lower neck: Unremarkable. Abdomen: Unremarkable. Bones: Unremarkable. IMPRESSION: No acute abnormality and in particular no evidence of acute aortic injury. The left subclavian artery is normal. ACT 112: Negative or not required by law. Electronically signed by: Yariel Witt M.D. 08/25/2021 12:43 PM Hospital Course (1) Myopericarditis: - Continue on colchicine 0.6 mg twice daily, ibuprofen 600 mg every 8 hours as needed. - Unknown etiology, was mildly positive for coxsackievirus, cardiology not entirely convinced this is the cause. ? if lithium may be inducing this. We will continue his medication now, however obviously if it is determined lithium is the cause of his myocarditis, would have to DC and continue other options for therapy. (2) Bipolar 1 disorder: - Continue lithium 1,125 mg at night. - Amlodipine can potentially interact with the [place], this will need to be monitored by PCP At this time, pt is medically and hemodynamically stable for discharge home. Prescriptions sent to pharmacy as recommended by cardiology. Advise close follow up with pcp within 1 week of discharge. Plan has been d/w Dr. Craig who has also seen and evaluated this patient prior to discharge. Total Time Total Time Spent Total Time Spent (In Minutes): >30 minutes Discharge Plan Discharge Items Patient Disposition: Home - Self-Care Reason For Visit: CHEST PAIN,HX OF PERIMYOCARDITIS Discharge Diagnosis: Chest pain - suspected due to coronary artery spasms Activity: Resume your previous activity Non-emergency contact: Primary Care Provider and [employer] Vice President Call non-emergency contact if: you have any medication questions and your symptoms worsen Follow-up/Referrals: [facility] [Primary Care Provider] - Diet: Regular and Heart Healthy Addtl Attending Provider Instructions: You were hospitalized with complaints of chest pain. You were taken for a heart catheterization which found that you had some spasm of your coronary arteries. This is what most likely has been causing your symptoms. In order to treat the spasms, you were given a medication called Amlodipine. This medication can affect your blood pressure. It can also interact with your [place]. But it is useful in stopping the spasms. You should follow up with your primary care provider to obtain follow up lithium levels to make sure that your levels are not rising. It is advised that you follow up with cardiology. I would advise that you call cardiology if you are experiencing lightheadedness or dizziness prior to leaving the country to visit your family. You are also being prescribed a medication called Nitroglycerin. You can put this under your tongue if you experience chest pain. It is important to know that this medication can cause low blood pressure. So please be cautious with using this medication. Follow up with your family doctor within 1 week of discharge. If you have any questions or concerns once you leave the hospital, you can call the nonemergency number listed on your discharge paperwork. If you have a medical emergency, call 911. Pending Studies at Discharge: No Stand-Alone Forms: My [employer], Work/School Release, Smoking Cessation Medications and DC Order Prescriptions: New amlodipine 2.5 mg tablet 2.5 mg PO DAILY Qty: 30 RF: 0 nitroglycerin 0.4 mg tablet, sublingual 0.4 mg sublingual Q5M PRN (Reason: chest pain) Qty: 10 RF: 0 Continued colchicine [Colcrys] 0.6 mg Tablet 0.6 mg PO BID 30 Days Qty: 60 RF: 3 lithium carbonate 450 mg tablet extended release 1,125 mg PO QPM RF: 0 Discontinued ibuprofen 600 mg tablet 600 mg PO Q8H PRN (Reason: pain) Qty: 20 RF: 0 Discharge Orders: Discharge Order (Routine); Ordered 08/26/21 Ordered By: Mary Cooper/Other Patient Handouts: Cardiac Catheterization Dc Admission Data Admit Date/Time: 08/24/21 14:47 Attending Provider: Lamine Craig Admit Provider: Kalin North Primary Care Provider: [facility] Other Providers: Kalin North ; Brooks Ney Other Interventions: Discharge Summary Assessment (RN) Last Done: 08/26/21 14:42 Supervising Physician Co-Signing Physician Notes Patient seen and examined, chart reviewed, case discussed with Isabel Bryan and I agree with the assessment and plan as above except as otherwise noted. Patient is a 21-year-old male who presented with chest pain, he was found to have myopericarditis possibly a viral etiology as he was positive for coxsackievirus on 07/25/2021. Lyme testing negative.Case was reviewed with cardiology will suspect troponin elevation may be due to coronary spasm. He has been discharged on a low-dose of amlodipine daily and okay for follow-up as outpatient. For his myopericarditis also discharged on colchicine, and ibuprofen. Seen by cardiology and will have outpatient follow-up with PCP. [place] within therapeutic levels during admission, if no improvement reevaluate as potential cause of presentation. At time of discharge patient is seen in room, he is ambulating independently and going to use the bathroom prior to discharge. Lungs are clear, heart rate is regular and without murmurs. Skin is warm and dry. Okay for discharge with plan above Coding Level of Care Code 02495 OBS Care - Discharge Diagnoses Myopericarditis I31.9 Bipolar 1 disorder F31.9
--- NOTE | 2021-08-26 13:46 | XCELERA ---
[id number] \\[id number]
== END 2021-08-26 15:35 | disposition home or self-care (01) ==
LOC: 2W 11:40 → ED 11:40 → SUATTDRO 14:47 → 2W 15:19 → 2S 08-25 17:26

== ENCOUNTER 2022-07-01 16:17 | Inpatient (IN) ==
--- NOTE | 2022-07-01 16:38 | ED Triage Note ---
Date of Service July 01, 2022 History of Present Illness This patient was briefly evaluated while in triage. An abbreviated physical exam was performed. This patient is a 22-year-old Male who presents to the ED for evaluation of a recurrence of symptoms that started yesterday. He was seen overnight for the same symptoms. A friend states that the patient is having severe pain in his head and neck and is having trouble talking. Physical Exam VITALS: Vitals are noted on the nurse's note and reviewed by myself. GENERAL: This is a 22-year-old male, sitting in a wheelchair, holding the left side of his head and grimacing in pain. EYES: Pupils equal round and reactive to light and accommodation. MOUTH: Mucous membranes moist. Airway patent. NECK: Supple without nuchal rigidity. HEART: Regular rate and rhythm without murmurs gallops or rubs. LUNGS: Clear to auscultation bilaterally without wheezes, rales or rhonchi. NEURO: Patient was alert and oriented, responds to questions with "yes" or "no." Initial orders for labs and / or imaging were placed and patient was placed in the waiting area until a bed is available. Please see further documentation for the full ED course.
[2022-07-01] MEDS ORDERED: KETOROLAC TROMETHAMINE 15 MG/ML VIAL IV STA (16:43)
[2022-07-01 17:40] LABS: Basophils # (auto) 0.01 K/uL (0-0.2); Basophils % (auto) 0.1 %; Hematocrit (blood only) 41.3 % (42.0-52.0); Hemoglobin 13.6 g/dl (14.0-18.0); Immature Granulocytes # (auto) 0.11 K/uL (0.01-0.20); Immature Granulocytes % (auto) 0.8 %; Lymphocytes # (auto) 1.17 K/uL (1.2-3.4); Lymphocytes % (auto) 8.8 %; Mean Corpuscular Hemoglobin 27.1 pg (25.0-34.0); Mean Corpuscular Hgb Conc 32.9 g/dL (32.0-36.0); Mean Corpuscular Volume 82.4 fL (80.0-100.0); Mean Platelet Volume 10.2 fL (9.4-12.4); Monocytes # (auto) 0.79 K/uL (0.11-0.59); Monocytes % (auto) 5.9 %; Neutrophils # (auto) 11.24 K/uL (1.40-6.50); Neutrophils % (auto) 84.4 %; Platelet Count 338 K/uL (130-400); RDW Coefficient of Variation 12.5 % (11.5-14.5); RDW Standard Deviation 37.9 fL (36.4-46.3); Red Blood Count 5.01 M/uL (4.70-6.10); White Blood Count 13.32 K/ul (4.8-10.8)
[2022-07-01 18:00] LABS: Alanine Aminotransferase 32 U/L (7-52); Albumin Globulin Ratio 1.3 (0.9-2); Albumin Level 4.4 gm/dl (3.4-5.0); Alkaline Phosphatase 108 U/L (34-104); Anion Gap 8 (3-11); Aspartate Aminotransferase 27 U/L (13-39); BUN Creatinine Ratio 18.1 (10-20); Bilirubin,Total 0.3 mg/dl (0.2-1.0); Blood Urea Nitrogen 15 mg/dl (6-23); Calcium 9.4 mg/dl (8.6-10.3); Carbon Dioxide 20 mmol/L (21-32); Chloride 106 mmol/L (98-107); Est GFR (African American) 145.8 ml/min; Est GFR (Non-African American) 125.8 ml/min; Globulin 3.3 gm/dl (2.5-4.0); Glucose 115 mg/dl (70-99(Fasting)); Potassium 4.3 mmol/L (3.5-5.1); Sodium 134 mmol/L (136-145); Total Protein 7.7 gm/dl (6.0-8.3)
--- NOTE | 2022-07-01 18:06 | Emergency Department Note ---
Impression & Plan Dystonia, Acute tonsillitis, Difficulty in swallowing, Bipolar 1 disorder, Elevated troponin I level ED Provider Note NAME: CATRACHITA ESPINO AGE: 22 SEX: M : 2000 ARRIVES VIA: Walk-In INFORMANT: Patient, ED PROVIDER(S): Quinn Mckinnon MD CHIEF COMPLAINT: Difficulty with talking MEDICAL DECISION MAKING: Patient presented due to concern for complaints that may be secondary to the patient's medication use. The patient may be developing adverse reactions due to his recent addition of Caplyta. Blood work is already been obtained and IV was established. The patient was ordered Cogentin as well as Ativan and IV fluids. EKG troponin talk screen urine drug screen salicylate Tylenol alcohol also added. Patient was reevaluated the patient did not have resolution of the issues with the speech. MRI of the brain was ordered. The patient does have an elevated troponin at 68. EKG with no signs of obvious ischemia. Patient has a white count of 13 but this may be secondary to the patient's most recent steroid use. Mild anemia with a hemoglobin of 13.6. The patient's kidney function is unremarkable with mild hyponatremia 134 urinalysis is negative. Patient's lithium level is low urine drug screen and talk screen otherwise negative. COVID-negative. I did speak with the on-call hospitalist service and the patient was admitted by Dr. Chaidez. Do believe the patient likely has associated dystonia/speech issue secondary to medication side effect especially in light of the patient's recent addition of Caplyta but brain MRI obtained to r/o alternative cause and pending at time of admission. Brain MRI is negative. Prior /Outside records reviewed: I did review the patient's most recent emergency department note in addition to imaging which showed possible tonsillitis. Patient reportedly was having difficulty with swallowing secretions and having trouble with speaking. Patient was reported to have some tongue swelling at that time. Patient is on Seroquel and lithium. The patient was discharged on Augmentin and prednisone. Differential diagnosis: Medication side effects, infection, ACS, myocarditis, stroke, mini stroke, seizure among others were considered Diagnostics, as interpreted by me: ECG: Normal sinus rhythm, rate of 90 normal intervals normal axis no ST elevations or T WI Cardiac monitoring: An order was placed for continuous cardiac monitoring. The monitor shows a rate of 88 with sinus rhythm. Patient was placed on pulse oximetry Medical decision rules: None Imaging studies: See below I informally reviewed the patient's chest x-ray which shows no obvious pneu mothorax. HPI: Patient presents due to concern for multiple complaints. The patient was recently seen last evening for drooling and difficulty with speaking but patient states that today he develops back pain and thought that he had pain on the left side of his body that he described as being consistent with a prior history of myocarditis. The patient felt very generally weak. Patient denies any shortness of breath or leg swelling. The patient does have difficulty with speaking. Patient was recently started on Caplyta about 1 month prior and is already on lithium and Seroquel. Patient takes 100 mg of the Seroquel daily and 1200 of the lithium. Patient denies any falls or trauma. No prior history of stroke or mini stroke. Patient was seen last evening and was treated as possible tonsillitis and was started on prednisone and Augmentin. Patient denies any other changes in medications. It is finals week but the patient denies any increase in stress as he does have a final tomorrow. Patient denies any cough or fever. Patient does complain of generalized weakness but no focal weakness or numbness. The patient denies any bowel bladder incontinence or lower back pain. Patient denies any prior history of DVT or PE. Patient denies any alcohol tobacco or drug use. PAST MEDICAL HISTORY: See Below PAST SURGICAL HISTORY: See Below SOCIAL HISTORY: See Below HOME MEDICATIONS: See Below ALLERGIES: See Below VITALS: See Below PHYSICAL EXAMINATION: GENERAL: NAD, wearing a mask, non-toxic. EYE EXAM: Normal conjunctiva. PERRL, no anisocoria and EOM's grossly intact w/o pain. Oropharynx: Moist mucous membranes. NECK: Supple, no nuchal rigidity, no adenopathy, non-tender. No signs of meningismus. FROM of the neck with good chin to chest and neck extension. No stridor. LUNGS: Clear to auscultation. Normal chest wall mechanics. HEART: NSR, no MRG. ABDOMEN: Abdomen soft, non-tender, no masses, no rebound or guarding. BACK: No CVA TTP. SKIN: No rashes and no bruising. UPPER EXTREMITIES: Upper extremities are grossly normal. LOWER EXTREMITIES: Grossly normal, no edema. Negative Homans' sign bilaterally NEURO EXAM: A&O x3, cranial nerves II-XII grossly intact, dysarthria, moves all 4 extremities. Good [id number], no drift, Past Med/Surg History Medical History Bipolar disorder Chest pain Morbid obesity Myocarditis Myopericarditis Pericarditis Family History Mother Stroke Social History Smoking Status: Never smoker Tobacco Type: Cigarettes Second Hand Exposure: No; Do You Dip or Chew Tobacco: No; Hx Alcohol Use: No Hx Substance Use: No Preferred Language: Arabic Communication Ability: Effective Jewelry Manager Required: No Beliefs That Will Affect Care: None Current Living Situation: Alone and Other Current Living Situation Comment: roommate Feels Safe at Home: Yes Assistive Devices: None Allergies Allergies Allergy/AdvReac Type Severity Reaction Status Date / Time No Known Allergies Allergy Verified 06/30/22 14:45 Home Meds Home Medications Medication Instructions Recorded Confirmed lithium carbonate 600 mg capsule 1,200 mg PO QDD 07/01/22 07/01/22 lorazepam 0.5 mg tablet 0.5 mg PO DAILY PRN Anxiety 07/01/22 07/01/22 lumateperone 42 mg capsule 42 mg PO QPM 07/01/22 07/01/22 (Caplyta) propranolol 10 mg tablet 10 mg PO DAILY PRN Anxiety 07/01/22 07/01/22 quetiapine 100 mg tablet 100 mg PO HS 07/01/22 07/01/22 Previous Rx's Medication Instructions Recorded amoxicillin 875 mg-potassium 1 tab PO BID #20 tabs 06/30/22 clavulanate 125 mg tablet prednisone 20 mg tablet 20 mg PO BID 5 days #10 tabs 06/30/22 Results & Data (ED) Vital Signs Vital Signs - 24 hr 07/01/22 16:37 07/01/22 17:37 07/01/22 18:19 Temperature 36.8 C Temperature Source Temporal Artery Scan Pulse Rate 121 H 95 H Pulse Rate from SpO2 Sensor Respiratory Rate 20 Respiratory Depth Normal Blood Pressure 151/110 H Blood Pressure Mean 123 Blood Pressure Position Sitting Pulse Oximetry 98 Oxygen Delivery Method Room Air Sepsis Recent Fever Within 48 Hours No Sepsis New/Unexplained Change in Mental Status No Sepsis Action Taken by Nursing No Action Required 07/01/22 18:42 07/01/22 19:00 07/01/22 21:16 Temperature Temperature Source Pulse Rate 75 85 103 H Pulse Rate from SpO2 Sensor 74 90 Respiratory Rate 26 H 24 Respiratory Depth Blood Pressure 140/78 119/76 Blood Pressure Mean 98 90 Blood Pressure Position Pulse Oximetry 97 97 Oxygen Delivery Method Sepsis Recent Fever Within 48 Hours Sepsis New/Unexplained Change in Mental Status Sepsis Action Taken by Nursing 07/01/22 20:00 07/01/22 21:00 Temperature Temperature Source Pulse Rate 96 H 103 H Pulse Rate from SpO2 Sensor 104 H Respiratory Rate 25 H 14 Respiratory Depth Blood Pressure 141/97 H 148/89 H Blood Pressure Mean 111 108 Blood Pressure Position Pulse Oximetry 94 Oxygen Delivery Method Sepsis Recent Fever Within 48 Hours Sepsis New/Unexplained Change in Mental Status Sepsis Action Taken by [facility] Medications Current Medication List: was personally reviewed by me Laboratory Data Attestation: I reviewed the patient's lab results. 07/01/22 16:54 07/01/22 16:54 Lab Results 07/01/22 07/01/22 07/01/22 Range/Units 16:54 16:54 16:54 WBC 13.32 H (4.8-10.8) K/ul RBC 5.01 (4.70-6.10) M/uL Hgb 13.6 L (14.0-18.0) g/dl Hct 41.3 L (42.0-52.0) % MCV 82.4 (80.0-100.0) fL MCH 27.1 (25.0-34.0) pg MCHC 32.9 (32.0-36.0) g/dL RDW Std Deviation 37.9 (36.4-46.3) fL RDW Coeff of J Luis 12.5 (11.5-14.5) % Plt Count 338 (130-400) K/uL MPV 10.2 (9.4-12.4) fL Immature Gran % (Auto) 0.8 % Neut % (Auto) 84.4 % Lymph % (Auto) 8.8 % Ashe % (Auto) 5.9 % Eos % (Auto) 0.0 % Baso % (Auto) 0.1 % Neut # (Auto) 11.24 H (1.40-6.50) K/uL Lymph # (Auto) 1.17 L (1.2-3.4) K/uL Ashe # (Auto) 0.79 H (0.11-0.59) K/uL Eos # (Auto) 0.00 (0-0.50) K/uL Baso # (Auto) 0.01 (0-0.2) K/uL Immature Gran # (Auto) 0.11 (0.01-0.20) K/uL Sodium 134 L (136-145) mmol/L Potassium 4.3 (3.5-5.1) mmol/L Chloride 106 (98-107) mmol/L Carbon Dioxide 20 L (21-32) mmol/L Anion Gap 8 (3-11) BUN 15 (6-23) mg/dl Creatinine 0.83 (0.6-1.4) mg/dl Est Cr Clr Drug Dosing Not Reportable Est GFR ( Amer) 145.8 ml/min Est GFR (Non-Af Amer) 125.8 ml/min BUN/Creatinine Ratio 18.1 (10-20) Glucose 115 H (70-99(Fasting)) mg/dl Calcium 9.4 (8.6-10.3) mg/dl Total Bilirubin 0.3 (0.2-1.0) mg/dl AST 27 (13-39) U/L ALT 32 (7-52) U/L Alkaline Phosphatase 108 H (34-104) U/L Troponin I High Sens (0-20) pg/ml Total Protein 7.7 (6.0-8.3) gm/dl Albumin 4.4 (3.4-5.0) gm/dl Globulin 3.3 (2.5-4.0) gm/dl Albumin/Globulin Ratio 1.3 (0.9-2) Urine Color Urine Appearance (Clear) Urine pH (4.5-7.5) Ur Specific Tavernier (1.000-1.030) Urine Protein (Negative) Urine Glucose (UA) (Negative) Urine Ketones (Negative) Urine Blood (Negative) Urine Nitrite (Negative) Urine Bilirubin (Negative) Urine Urobilinogen (Negative) Ur Leukocyte Esterase (Negative) Urine Opiates Screen (Neg) Ur Methadone, Qual (Neg) Acetaminophen (10-30) ug/ml Urine Barbiturates (Neg) Ur Phencyclidine (PCP) (Neg) U Amphetamin/Meth Scrn (Neg) MDMA (Ecstasy) Screen (Neg) U Benzodiazepines Scrn (Neg) Belen (0.6-1.2) mmol/L Ur Cocaine Metabolite (Neg) U Marijuana (THC) Screen (Neg) Ethyl Alcohol mg/dL (<10.0) mg/dl Monoscreen Negative (Negative) 07/01/22 07/01/22 07/01/22 Range/Units 18:40 18:40 19:06 WBC (4.8-10.8) K/ul RBC (4.70-6.10) M/uL Hgb (14.0-18.0) g/dl Hct (42.0-52.0) % MCV (80.0-100.0) fL MCH (25.0-34.0) pg MCHC (32.0-36.0) g/dL RDW Std Deviation (36.4-46.3) fL RDW Coeff of J Luis (11.5-14.5) % Plt Count (130-400) K/uL MPV (9.4-12.4) fL Immature Gran % (Auto) % Neut % (Auto) % Lymph % (Auto) % Ashe % (Auto) % Eos % (Auto) % Baso % (Auto) % Neut # (Auto) (1.40-6.50) K/uL Lymph # (Auto) (1.2-3.4) K/uL Ashe # (Auto) (0.11-0.59) K/uL Eos # (Auto) (0-0.50) K/uL Baso # (Auto) (0-0.2) K/uL Immature Gran # (Auto) (0.01-0.20) K/uL Sodium (136-145) mmol/L Potassium (3.5-5.1) mmol/L Chloride (98-107) mmol/L Carbon Dioxide (21-32) mmol/L Anion Gap (3-11) BUN (6-23) mg/dl Creatinine (0.6-1.4) mg/dl Est Cr Clr Drug Dosing Est GFR ( Amer) ml/min Est GFR (Non-Af Amer) ml/min BUN/Creatinine Ratio (10-20) Glucose (70-99(Fasting)) mg/dl Calcium (8.6-10.3) mg/dl Total Bilirubin (0.2-1.0) mg/dl AST (13-39) U/L ALT (7-52) U/L Alkaline Phosphatase (34-104) U/L Troponin I High Sens (0-20) pg/ml Total Protein (6.0-8.3) gm/dl Albumin (3.4-5.0) gm/dl Globulin (2.5-4.0) gm/dl Albumin/Globulin Ratio (0.9-2) Urine Color Yellow Urine Appearance Clear (Clear) Urine pH 6.5 (4.5-7.5) Ur Specific Tavernier 1.018 (1.000-1.030) Urine Protein Negative (Negative) Urine Glucose (UA) Negative (Negative) Urine Ketones Negative (Negative) Urine Blood Negative (Negative) Urine Nitrite Negative (Negative) Urine Bilirubin Negative (Negative) Urine Urobilinogen Negative (Negative) Ur Leukocyte Esterase Negative (Negative) Urine Opiates Screen Neg (Neg) Ur Methadone, Qual Neg (Neg) Acetaminophen < 3 L (10-30) ug/ml Urine Barbiturates Neg (Neg) Ur Phencyclidine (PCP) Neg (Neg) U Amphetamin/Meth Scrn Neg (Neg) MDMA (Ecstasy) Screen Neg (Neg) U Benzodiazepines Scrn Neg (Neg) Belen 0.4 L (0.6-1.2) mmol/L Ur Cocaine Metabolite Neg (Neg) U Marijuana (THC) Screen Neg (Neg) Ethyl Alcohol mg/dL (<10.0) mg/dl Monoscreen (Negative) 07/01/22 07/01/22 Range/Units 19:06 19:06 WBC (4.8-10.8) K/ul RBC (4.70-6.10) M/uL Hgb (14.0-18.0) g/dl Hct (42.0-52.0) % MCV (80.0-100.0) fL MCH (25.0-34.0) pg MCHC (32.0-36.0) g/dL RDW Std Deviation (36.4-46.3) fL RDW Coeff of J Luis (11.5-14.5) % Plt Count (130-400) K/uL MPV (9.4-12.4) fL Immature Gran % (Auto) % Neut % (Auto) % Lymph % (Auto) % Ashe % (Auto) % Eos % (Auto) % Baso % (Auto) % Neut # (Auto) (1.40-6.50) K/uL Lymph # (Auto) (1.2-3.4) K/uL Ashe # (Auto) (0.11-0.59) K/uL Eos # (Auto) (0-0.50) K/uL Baso # (Auto) (0-0.2) K/uL Immature Gran # (Auto) (0.01-0.20) K/uL Sodium (136-145) mmol/L Potassium (3.5-5.1) mmol/L Chloride (98-107) mmol/L Carbon Dioxide (21-32) mmol/L Anion Gap (3-11) BUN (6-23) mg/dl Creatinine (0.6-1.4) mg/dl Est Cr Clr Drug Dosing Est GFR ( Amer) ml/min Est GFR (Non-Af Amer) ml/min BUN/Creatinine Ratio (10-20) Glucose (70-99(Fasting)) mg/dl Calcium (8.6-10.3) mg/dl Total Bilirubin (0.2-1.0) mg/dl AST (13-39) U/L ALT (7-52) U/L Alkaline Phosphatase (34-104) U/L Troponin I High Sens 63.3 H* D (0-20) pg/ml Total Protein (6.0-8.3) gm/dl Albumin (3.4-5.0) gm/dl Globulin (2.5-4.0) gm/dl Albumin/Globulin Ratio (0.9-2) Urine Color Urine Appearance (Clear) Urine pH (4.5-7.5) Ur Specific Tavernier (1.000-1.030) Urine Protein (Negative) Urine Glucose (UA) (Negative) Urine Ketones (Negative) Urine Blood (Negative) Urine Nitrite (Negative) Urine Bilirubin (Negative) Urine Urobilinogen (Negative) Ur Leukocyte Esterase (Negative) Urine Opiates Screen (Neg) Ur Methadone, Qual (Neg) Acetaminophen (10-30) ug/ml Urine Barbiturates (Neg) Ur Phencyclidine (PCP) (Neg) U Amphetamin/Meth Scrn (Neg) MDMA (Ecstasy) Screen (Neg) U Benzodiazepines Scrn (Neg) Belen (0.6-1.2) mmol/L Ur Cocaine Metabolite (Neg) U Marijuana (THC) Screen (Neg) Ethyl Alcohol mg/dL < 10.0 (<10.0) mg/dl Monoscreen (Negative) Administered Medications Discontinued Medications Benztropine Mesylate (Benztropine Mesylate 1 Mg/Ml 2 Ml Amp) 2 mg IV NOW STA Stop: 07/01/22 18:20 Last Admin: 07/01/22 18:30 Dose: 2 mg Documented By: JODI Gadobutrol (Gadobutrol 65ml Vial) 12 ml IV ONCE ONE Stop: 07/01/22 22:16 Last Admin: 07/01/22 22:16 Dose: 12 ml Documented By: JOHN Sodium Chloride (Nss 1000ml) 1,000 mls @ 999 mls/hr IV .Q1H1M ONE Stop: 07/01/22 19:19 Last Infusion: 07/01/22 20:00 Dose: 0 mls/hr Documented By: Admin: 07/01/22 18:30 Dose: 999 mls/hr Documented By: JODI Ketorolac Tromethamine (Ketorolac Tromethamine 15 Mg/Ml Vial) 15 mg IV NOW STA Stop: 07/01/22 16:44 Last Admin: 07/01/22 16:56 Dose: 15 mg Documented By: DEVENDRA Lorazepam (Lorazepam 2 Mg/1 Ml Vial) 1 mg IV NOW STA Stop: 07/01/22 18:20 Last Admin: 07/01/22 18:29 Dose: 1 mg Documented By: JODI Lorazepam (Lorazepam 2 Mg/1 Ml Vial) 1 mg IV NOW STA Stop: 07/01/22 19:09 Last Admin: 07/01/22 21:49 Dose: Not Given Documented By: CAMMY Lorazepam (Lorazepam 2 Mg/1 Ml Vial) Confirm Administered Dose 2 mg .ROUTE .STK- MED ONE Stop: 07/01/22 21:39 Last Admin: 07/01/22 21:42 Dose: 1 mg Documented By: CAMMY Imaging Data Radiologist's Impression: Chest X-Ray 07/01/22 18:28 XR chest 1V portable CLINICAL HISTORY: Chest pain. COMPARISON STUDY: Chest CT August 25, 2021 and chest radiograph June 30, 2022. FINDINGS: Patient is rotated. Lung volumes are normal. Lungs are clear. There is no pneumothorax or pleural effusion. Cardiac size is stable. Mediastinal contours are normal. There is no evidence for pulmonary edema. IMPRESSION: No acute cardiopulmonary findings. No significant change in appearance of the chest. ACT 112: Negative or not required by law. Electronically signed by: Ramos Worthington M.D. 07/01/2022 7:19 PM Brain MRI 07/01/22 19:08 Exam(s): MRI HEAD W/WO Contrast IV Amt: 12cc Gadavist EXAM: MR Head Without and With Intravenous Contrast CLINICAL HISTORY: Reason for exam: dysarthria. TECHNIQUE: Magnetic resonance images of the head/brain without and with intravenous contrast in multiple planes. CONTRAST: Patient received 12cc Gadavist of IV contrast COMPARISON: No relevant prior studies available. FINDINGS: Brain: Unremarkable. No mass. No hemorrhage. No acute infarct. Ventricles: Unremarkable. No ventriculomegaly. Bones/joints: Unremarkable. Sinuses: Unremarkable as visualized. No acute sinusitis. Mastoid air cells: Unremarkable as visualized. No mastoid effusion. Orbits: Unremarkable as visualized. IMPRESSION: Normal head/brain MRI. Electronically signed by: Ayden Pastor MD 07/01/22 23:15 PM Discharge Plan Visit Data Chief Complaint: Neuro Symptoms/Deficit Stated Complaint: HAVING ANOTHER NEURO EPISODE ED Provider: Quinn Mckinnon Discharge Problem: Dystonia, Acute tonsillitis, Difficulty in swallowing, Bipolar 1 disorder, Elevated troponin I level Patient Disposition: Admitted As Inpatient Discharge Instructions Interventions: ED Discharge Assessment Last Done: 07/02/22 01:42
[2022-07-01] MEDS ORDERED: LORazepam 2 MG/1 ML VIAL IV STA ×2 (18:19→19:08)
[2022-07-01] MEDS ORDERED: SODIUM CHLORIDE 0.9% 1000ML 1,000 ML IV ONE (18:19)
[2022-07-01] MEDS ORDERED: BENZTROPINE MESYLATE 1 MG/ML 2 ML AMP IV STA (18:19)
[2022-07-01 18:53] LABS: Appearance Urine Clear (Clear); Bilirubin Urine Negative (Negative); Blood Urine Negative (Negative); Color Urine Yellow; Glucose Urine UA Negative (Negative); Ketones Urine Negative (Negative); Leukocyte Esterase Urine Negative (Negative); Nitrite Urine Negative (Negative); Protein Urine Negative (Negative); Specific Gravity Urine 1.018 (1.000-1.030); Urobilinogen Urine Negative (Negative); pH Urine 6.5 (4.5-7.5)
[2022-07-01 19:20] LABS: Amphetamines+Metham, Urine Neg (Neg); Barbiturates, Urine Neg (Neg); Benzodiazepine, Urine Neg (Neg); Cocaine, Urine Neg (Neg); MDMA (Ecstacy), Urine Neg (Neg); Methadone, Urine Neg (Neg); Opiate, Urine Neg (Neg); Phencyclidine, Urine Neg (Neg)
--- NOTE | 2022-07-01 19:20 | XRay Report ---
XR chest 1V portable CLINICAL HISTORY: Chest pain. COMPARISON STUDY: Chest CT August 25, 2021 and chest radiograph June 30, 2022. FINDINGS: Patient is rotated. Lung volumes are normal. Lungs are clear. There is no pneumothorax or p leural effusion. Cardiac size is stable. Mediastinal contours are normal. There is no evidence for pu lmonary edema. IMPRESSION: No acute cardiopulmonary findings. No significant change in appearance of the chest. ACT 112: Negative or not required by law. Electronically signed by: Ramos Worthington M.D. 07/01/2022 7:19 PM
[2022-07-01 19:33] LABS: Lithium 0.4 mmol/L (0.6-1.2)
[2022-07-01 19:38] LABS: Acetaminophen < 3 ug/ml (10-30)
[2022-07-01] MEDS ORDERED: LORazepam 2 MG/1 ML VIAL ONE (21:38)
[2022-07-01] MEDS ORDERED: GADOBUTROL 65ML VIAL IV ONE (22:15)
--- NOTE | 2022-07-01 22:31 | History & Physical Report ---
Date of Service July 01, 2022 Assessment & Plan (1) Dystonia: Plan: 22 M w/ BPD1 on (Seroquel, [place] and Caplyta) presenting with weakness, dysarthria, and dark spots in b/l visual field. Now admitted for further workup, management of presumed dystonia. Dystonia/Dysarthria -Recent, acute onset dysarthria, neck twitching after recent antipsychotic medication adjustment. -Previously on lithium, quetiapine 400 mg since last September. Quetiapine decreased to 100 mg a month ago. Caplyta added 1.5 months ago. -CT head yesterday, MRI brain today both negative for intracranial process. Nonfocal neuro exam. UA negative. -Improved s/p administration of benztropine, lorazepam in the ED. * Holding home quetiapine, lumateperone. * Continue lithium * Psychiatry consult ordered for eval, med management * Speech eval ordered. NPO until then. * Monospot test, CRP ordered. Appreciate results. Elevated troponin -Troponin of 63.3, up from 20.2 in the ED yesterday. -Last year (08/24-08/26), presented to ED with chest pain, troponin peaked at 3917.6. Echo at that time was normal. -Asymptomatic. Continues to deny chest pain on admission. * Trend troponin q6h x4 * AM echo ordered. * Given negative EKG, no chest pain, consider cardiology consult for evaluation of possible perimyocarditis. Bipolar I disorder -Managed on lithium, quetiapine, and, recently, lumateperone (1.5 months ago). -Follows with [facility]. Patient gave verbal consent to contact [facility] for records. -Serum lithium infra-therapeutic on admission (0.4). -Quetiapine decreased approximately 1 month ago to 100 mg from 400 mg. -Tolerated quetiapine 400 mg w/o incident since September 2021 until a month ago. * Holding quetiapine, lumateperone, as above. * Continuing home lithium * Psych consult as above for evaluation of suspected dystonia, med rec. Tonsillitis -Dx'd on CT neck at last hospital visit yesterday. -Sent home on Augmentin. * Hold Augmentin until speech evaluation. Code: Full code Dispo: Med-Surg telemetry FEN/GI: NPO. LR @maintenance rate. DVT Prophylaxis: PT/OT: No Consults: Psychiatry, speech Case Management: [Yes][No] (2) Elevated troponin: (3) Bipolar 1 disorder: (4) Acute tonsillitis: History of Present Illness Primary Care Provider: [facility] Kamryn is a 22-year old with a PMH of BPD1 (on [place], Seroquel and Caplyta) who presented today for lower extremity weakness and vision changes (dark spots in bilateral medial visual grossman) that began at approximately 3 PM today. He recently presented to the ED yesterday for vague neurological symptoms. Work-up revealed possible tonsillitis on neck CT--he received steroids and Augmentin and was discharged home. Today, he reports that he was studying at [employer] when he suddenly felt fatigued, which worsened to the extent he was too tired to drive himself home an hour later. His roommate, who was with him, instead drove him home. He attempted to take a nap but instead grew weaker and started seeing "dark spots" in his medial visual grossman bilaterally, which concerned him. He then asked his roommate to meet him outside his apartment to drive him to the hospital but when the roommate pulled up outside, he found the patient leaning against the wall as he was unable to stand upright. His roommate then carried him to the car and brought him to the hospital. In the emergency room, vitals were within normal limits. However, he began to experience worsening left sided parietal headache, new onset neck and back pain, and neck twitching accompanied by a "heavy tongue." He denies confusion, chest pain, SOB, nausea, or abdominal pain. ROS+ b/l numbness and tingling in the feet. Labs were notable for slight leukocytosis of 13.32, slightly elevated alk phos-108, and elevated troponin at 63.3, which was triple previously measured troponin from the day before (20.2). CXR today was negative. He received IV benztropine and IV lorazepam, after which the headache improved. On admission, he continues to report left-sided headache, which is improved from earlier. He denies any vision changes. ROS otherwise negative as above. MRI head completed prior to admission was negative for an acute intracranial process. Allergies Allergy/AdvReac Type Severity Reaction Status Date / Time No Known Allergies Allergy Verified 06/30/22 14:45 Home Medications Medication Instructions Recorded Confirmed Type amoxicillin 875 mg-potassium 1 tab PO BID #20 tabs 06/30/22 07/01/22 Rx clavulanate 125 mg tablet prednisone 20 mg tablet 20 mg PO BID 5 days #10 tabs 06/30/22 07/01/22 Rx lithium carbonate 600 mg capsule 1,200 mg PO QDD 07/01/22 07/01/22 History lorazepam 0.5 mg tablet 0.5 mg PO DAILY PRN Anxiety 07/01/22 07/01/22 History lumateperone 42 mg capsule 42 mg PO QPM 07/01/22 07/01/22 History (Caplyta) propranolol 10 mg tablet 10 mg PO DAILY PRN Anxiety 07/01/22 07/01/22 History quetiapine 100 mg tablet 100 mg PO HS 07/01/22 07/01/22 History Past Med/Surg History Medical History Bipolar disorder Chest pain Morbid obesity Myocarditis Myopericarditis Pericarditis Family History Mother Stroke Social History Smoking Status: Never smoker Tobacco Type: Cigarettes Second Hand Exposure: No; Do You Dip or Chew Tobacco: No; Hx Alcohol Use: No Hx Substance Use: No Preferred Language: Bengali Communication Ability: Effective Welder Fitter Arc Required: No Beliefs That Will Affect Care: None Current Living Situation: Alone and Other Current Living Situation Comment: roommate Feels Safe at Home: Yes Assistive Devices: None Review of Systems Review of Systems: All systems reviewed & are unremarkable except as noted in HPI & below Physical Exam Physical Exam: General: Pleasant tired-appearing young man in mild distress HEENT: PERRLA. Normal conjunctiva, anicteric sclera. Oropharynx normal. Respiratory: Normal respiratory effort, CTABL. Cardiovascular: RRR without murmurs, gallops, or rubs. No edema. GI: Soft abdomen with normal bowel sounds heard on auscultation. Nontender x4 quadrants Neuro: Alert and oriented x3. CN II-XII non focal bilaterally. 4/5 strength at the hips, knees and ankles b/l. 2+ patellar reflex bilaterally. Results & Data Results & Data Vital Signs (Past 12 Hours) Vital Signs Temp Pulse Resp BP Pulse Ox O2 Del Method 07/01/22 21:00 103 H 14 148/89 H 94 07/01/22 20:00 96 H 25 H 141/97 H 07/01/22 21:16 103 H 07/01/22 19:00 85 24 119/76 97 07/01/22 18:42 75 26 H 140/78 97 07/01/22 18:19 98 Room Air 07/01/22 17:37 95 H 07/01/22 16:37 36.8 C 121 H 20 151/110 H Supervising Physician Co-Signing Physician Notes Patient seen and examined, chart reviewed, case discussed with Dr. Reardon and I agree with the assessment and plan as above. In brief, patient with suspected dystonic reaction after receiving Cap[place]ta Elevated troponin - history of myopericarditis. Patient denies chest pain. No EKG changes suggestive of pericarditis. On exam he is anxious, NAD Skin - no rash HEENT - MMM, Neck supple Heart - +S1/S2, regular, no m/r/g Lungs - CTA Abd - soft, NT/ND Ext - no edema Labs and images reviewed Assessment/Plan -Monitor troponin -Telemetry -Check strep, EBV -Holding Psychiatric meds -Psychiatry consultation appreciated -Remainder as above Resident Activity Tracking Resident Involvement: Resident Care Provided Care Provided: Adult Hospital Medicine (4) Acute tonsillitis Pharyngitis/tonsillitis etiology: unspecified etiology Qualified Code(s): J03.90 - Acute tonsillitis, unspecified
--- NOTE | 2022-07-01 23:16 | Magnetic Resonance Report ---
Exam(s): MRI HEAD W/WO Contrast IV Amt: 12cc Gadavist EXAM: MR Head Without and With Intravenous Contrast CLINICAL HISTORY: Reason for exam: dysarthria. TECHNIQUE: Magnetic resonance images of the head/brain without and with intravenous contrast in multiple planes. CONTRAST: Patient received 12cc Gadavist of IV contrast COMPARISON: No relevant prior studies available. FINDINGS: Brain: Unremarkable. No mass. No hemorrhage. No acute infarct. Ventricles: Unremarkable. No ventriculomegaly. Bones/joints: Unremarkable. Sinuses: Unremarkable as visualized. No acute sinusitis. Mastoid air cells: Unremarkable as visualized. No mastoid effusion. Orbits: Unremarkable as visualized. IMPRESSION: Normal head/brain MRI. Electronically signed by: Ayden Pastor MD 07/01/22 23:15 PM
[2022-07-02] MEDS ORDERED: ACETAMINOPHEN 500 MG TAB PO PRN (01:47)
--- NOTE | 2022-07-02 02:04 | Billing Data ---
Date of Service July 01, 2022 Coding Level of Care Code 47656 IN/OBS CONSULT LVL 3,45M
[2022-07-02] MEDS: MELATONIN 3 MG TAB PO PRN (03:07)
[2022-07-02 03:54] LABS: Hematocrit (blood only) 38.9 % (42.0-52.0); Hemoglobin 12.7 g/dl (14.0-18.0); Mean Corpuscular Hemoglobin 27.4 pg (25.0-34.0); Mean Corpuscular Hgb Conc 32.6 g/dL (32.0-36.0); Platelet Count 297 K/uL (130-400); RDW Coefficient of Variation 12.6 % (11.5-14.5); RDW Standard Deviation 38.5 fL (36.4-46.3); Red Blood Count 4.63 M/uL (4.70-6.10); White Blood Count 11.32 K/ul (4.8-10.8)
[2022-07-02 04:08] LABS: Albumin Globulin Ratio 1.4 (0.9-2); Albumin Level 3.9 gm/dl (3.4-5.0); Bilirubin,Total 0.6 mg/dl (0.2-1.0); Calcium 8.7 mg/dl (8.6-10.3); Creatinine Clr Calc Pharmacy 166.1 ml/min; Est GFR (African American) 137.3 ml/min; Est GFR (Non-African American) 118.5 ml/min; Globulin 2.7 gm/dl (2.5-4.0); Magnesium 1.8 mg/dl (1.7-2.4); Phosphorus 3.7 mg/dl (2.5-4.9); Potassium 3.6 mmol/L (3.5-5.1); Total Protein 6.6 gm/dl (6.0-8.3)
--- NOTE | 2022-07-02 10:33 | Electrocardiogram Report ---
Test Reason : Blood Pressure : / mmHG Vent. Rate : 090 BPM Atrial Rate : 090 BPM P-R Int : 144 ms QRS Dur : 098 ms QT Int : 378 ms P-R-T Axes : 044 068 035 degrees QTc Int : 462 ms Normal sinus rhythm Possible Left atrial enlargement Low voltage QRS Incomplete right bundle branch block Cannot rule out Anterior infarct (cited on or before 30-JUN-2022) Abnormal ECG When compared with ECG of 30-JUN-2022 15:36, No significant change was found Confirmed by Brooks Nye ([id number]) on 07/02/2022 10:33:01 AM Referred By: REFERRED SELF Confirmed By:Brooks Nye
[2022-07-02] MEDS: dexAMETHasone 6 MG in SYRINGE 0 ML IV SCH (11:14)
--- NOTE | 2022-07-02 11:33 | Psychiatric Consultation ---
Date of Consultation July 02, 2022 Impression / Recommendations Impression Diagnostically unclear. Acute dystonia can certainly lead to laryngeal muscle spasm, tongue protrusion, jaw stiffness, or other muscle stiffness and typically responds to an IM or IV dose of benadryl or cogentin with rapid improvement which seems to be what occurred in the ED two days ago. He is on dual antipsychotic medication (Seroquel and Caplyta) but both are atypical antipsychotics which are much less likely to lead to dystonia. Certainly both have significant anticholinergic side effects and may have lead to recent blurry vision and fatigue. Additionally while tongue protrusion, sense of a "thick tong ue", speech changes and tongue/throat muscle spasms can occur it is highly atypical to have associated tongue swelling unless an allergic reaction has also developed. No current signs of Li toxicity and while level was an almost 24 hour level and thus expected to be low (0.4) unlikely that a true trough (12 hour level) would have been higher than 0.8 or 0.9. NMS highly unlikely given vital signs have been stable. Given history of conversion disorder this should remain on the differential but is a diagnosis by exclusion. (1) Dystonia: (2) Difficulty in swallowing: Dysphagia type: unspecified Qualified Code(s): R13.10 - Dysphagia, unspecified (3) Bipolar 1 disorder: Plan -Agree with IV or IM Benadryl (typically 25-50mg per day but can use up to 100mg per day) which will address and resolve any acute dystonia if present, then would transition to benztropine 1mg BID po for at least 7 days to ensure symptoms do not re-occur -Hold Seroquel and Caplyta for now -Continue [place] 1,200mg daily with dinner -Requested outpt psych records from [facility] -Discussed with Dr. Craig Psych History Identifying Data 22 yo man with a history of bipolar affective disorder, brad/myocarditis, coronary artery spasms, self-reported conversion disorder admitted medically for muscle stiffness, difficulty swallowing, increased fatigue. Psychiatry consulted for recommendations and possible contribution from antipsychotic medications. Chief Complaint "My mood is normal but I can't stop crying the last two days". History of Present Illness Kamryn, a [employer] student from [facility], has been experiencing sudden increase in swallowing difficulty, sense of a swollen tongue two days ago for which he was seen in the ED with improvement and discharged on antibiotics. He then represented the next day for increased fatigue and since admission has demonstrated ongoing difficulty talking due to swollen tongue and unsteady on his feet requiring use of the bedside commode and nursing assistance. He also reports sudden increase in tearfulness over the last two days. He is stressed about missing his finals due to being in the hospital but reassured when offered option for liason to reach out to [employer] student care and advocacy. Has been doing fairly well academically his semester. Plans to return to [employer] [facility] with family for the summer and will return to campus in the fall. Initially had blurry vision but this has improved today. Has been [place] for a long time for BPAD. No history of Li toxicity, states his last Li level was 0.7. Had been on seroquel 400mg HS for a long time to help with anxiety as he reports history last year of "conversion" where he was very tremulous for "three months and couldn't even use my phone" and seroquel helped him with anxiety and sleep. His [facility] provider recently tapered his Seroquel as it was causing him too much sedation and then started Capylta (highest dose currently) which he found very helpful noting "It's given me energy". Denies any hx of acute dystonic reactions or TD. Allergies Allergy/AdvReac Type Severity Reaction Status Date / Time No Known Allergies Allergy Verified 06/30/22 14:45 Home Medications Medication Instructions Recorded Confirmed Type amoxicillin 875 mg-potassium 1 tab PO BID #20 tabs 06/30/22 07/01/22 Rx clavulanate 125 mg tablet prednisone 20 mg tablet 20 mg PO BID 5 days #10 tabs 06/30/22 07/01/22 Rx lithium carbonate 600 mg capsule 1,200 mg PO QDD 07/01/22 07/01/22 History lorazepam 0.5 mg tablet 0.5 mg PO DAILY PRN Anxiety 07/01/22 07/01/22 History lumateperone 42 mg capsule 42 mg PO QPM 07/01/22 07/01/22 History (Caplyta) propranolol 10 mg tablet 10 mg PO DAILY PRN Anxiety 07/01/22 07/01/22 History quetiapine 100 mg tablet 100 mg PO HS 07/01/22 07/01/22 History Patient History Medical History Bipolar disorder Chest pain Morbid obesity Myocarditis Myopericarditis Pericarditis Family History Mother Stroke Social History Smoking Status: Never smoker Tobacco Type: Cigarettes Second Hand Exposure: No; Do You Dip or Chew Tobacco: No; Hx Alcohol Use: No Hx Substance Use: No Preferred Language: Serbian Communication Ability: Effective Youth Career Specialist Required: No Beliefs That Will Affect Care: None Current Living Situation: Other Current Living Situation Comment: [employer] student with roommate Feels Safe at Home: Yes Assistive Devices: None Physical Exam Psychiatric: Orientation: alert and oriented x 3 Apperance: appropriately dressed Eye Contact: good eye contact Motor Behavior: + EPS (?); n tremor Speech: + abnormal rate/rhythm/volume of speech (slightly dysarthric ) Affect: + anxious affect Mood: + anxious mood; no depressed mood Thought Process: + circumstantial thought process Thought Content: reality based without delusions Suicidal Thoughts: denies suicidal thoughts Homicidal Thoughts: denies homicidal thoughts Hallucinations: no auditory hallucinations and no visual hallucinations Cognition: recent memory grossly intact, remote memory grossly intact, attention grossly intact and language grossly intact Insight: + fair insight Judgment: + fair judgement Vital Signs (Past 24 Hours): Last Vital Signs Temp 37 C 07/02/22 11:27 Pulse 68 07/02/22 11:27 Resp 18 07/02/22 11:27 BP 128/91 07/02/22 11:27 Pulse Ox 97 07/02/22 11:27 O2 Del Method Room Air 07/02/22 11:27 Review of Systems All systems reviewed & are unremarkable except as noted in HPI & below Results & Data (PSY) Medications Administered Dexamethasone 6 mg/ Syringe 1.5 mls @ 1 mls/min IV Q24H DIANDRA Stop: 08/01/22 10:59 Last Admin: 07/02/22 11:14 Dose: 1 mls/min Documented By: KGSurendra Melatonin (Melatonin 3 Mg Tab) 3 mg PO HS PRN PRN Reason: Sleep Stop: 08/01/22 01:46 Last Admin: 07/02/22 03:07 Dose: 3 mg Documented By: LENNOX Coding Level of Care Code 49852 IN/OBS CONSULT LVL 3,45M Diagnoses Dystonia G24.9 Difficulty in swallowing R13.10 Dysphagia type: unspecified Bipolar 1 disorder F31.9 Time Spent (min) 50
[2022-07-02] MEDS: LORATADINE 10 MG TAB PO SCH (11:54)
--- NOTE | 2022-07-02 14:23 | Hospitalist Progress Note ---
Date of Service July 02, 2022 Assessment & Plan (1) Dystonia: Plan: 22 M w/ BPD1 on (Seroquel, [place] and Caplyta) presenting with weakness, dysarthria, and dark spots in b/l visual field. admitted for further work-up and suspected dystonia Weakness, dystonia, dysarthria DDx includes dystonia; given less prominent tremor and other Patient also with dysarthria and some tongue swelling which is not his normal baseline Due to tongue swelling? Allergy/angioedema, no lip swelling Benadryl, steroids, cetirizine ordered. C4 level and tryptase are pending. Cogentin deferred while using Benadryl Psych consulted for evaluation of dystonia, may have some element of this but also does not clearly explain his lower extremity weakness and symptoms. MRI brain normal, no other focal neurologic deficits other than lower extremity weakness CThead negative Management of psychotropics per psychiatry, appreciate recommendations and insight. [place] not a true trough level, may have been supratherapeutic but suspect this is not causing his overall presentation Lower extremities are nonflaccid, although strength is symmetrically weak. No clonus, Achilles/patellar reflex intact. Given lower progressive symptoms and some upper discussed with neurology, will obtain MRI with and without contrast of both the thoracic and lumbar spine tonight and continue current work-up. If etiology remains unclear, will consult and evaluate for GBS / inflammatory variants at that time although this seems less likely with intact reflexes this morning COVID-negative Elevated troponin Downtrending, without chest pain Echo pending No EKG changes, no chest pain. Follow echo for? Pericarditis, CRP is mildly elevated. Lyme is pending Bipolar 1 disorder On lithium, quetiapine, lumateperone started 6 weeks ago, follows with [facility] [place] not to trough level, see as noted Psychiatry following, appreciate recommendations On Benadryl for? Tongue swelling, defer Cogentin at this time Tonsillitis Patient recently on Augmentin CTneck: No acute inflammatory changes or fluid collection to suggest abscess, enlargement of adenoid tonsils? Tonsillitis, maxillary sinus thickening EBV panel is pending Monoscreen is negative COVID-negative Group A strep negative CODE STATUS: Full code Disposition: Medical telemetry Diet passed speech study, may have diet as tolerated but if tongue swelling/concern for aspiration arises make n.p.o. and restart IVF (2) Elevated troponin: (3) Bipolar 1 disorder: (4) Acute tonsillitis: Admission and Anticipated Discharge Date Admission Date: July 01, 2022 Subjective Mr. Curiel is seen at the bedside. He reports that he is very concerned about his leg weakness, which has limited his ability to walk. He reports he has had some tremors in his hands, is not sure if these are related or not to his weakness and inability to walk. Reports that he is been sad and has been crying at times. Discusses that he does have exams this week and is concerned about having a doctor's note and missing the status., Speech is somewhat jumbled, per nursing report patient has had some tongue swelling which is not there at baseline and which had been treated in the ER previously. Patient also with difficulty urinating/voiding per nursing staff. Has not had fever/chills/sw eats, no chest pain or chest pressure. He feels similar to when he came in. Physical Exam Physical Exam: General: Speech is slow, affect withdrawn. Thought process linear HEENT: Atraumatic, normocephalic. Vision/hearing intact. + Tongue swelling without wheezing/airway compromise/uvular deflection Pulm: CTAB A&P. -wheezes, -rales, -rhonchi. Symmetrical chest rise. No increased work of breathing. No respiratory distress. Cardiac: RRR, -mrg. Radial pulses intact and symmetrical. Abdominal: Nontender, nondistended, soft. BS present. Extremities: Ankle dorsiflexion/plantarflexion 4 -/5 bilaterally, PT pulse intact. Tire Stripper strength 5/5 bilaterally with mild resting tremor. Achilles reflex 2+, patellar 2+ sensation to soft touch is intact in hands and feet without asymmetry. Denies saddle anesthesia Results & Data Results & Data Vital Signs (Past 12 Hours) Vital Signs Temp Pulse Pulse Resp BP Pulse Ox O2 Del Method 07/02/22 11:27 37 C 68 18 128/91 97 Room Air 07/02/22 10:00 88 07/02/22 07:15 36.6 C 98 H 18 96/68 L 98 Room Air 07/02/22 02:47 36.4 C L 89 16 149/109 H 96 Room Air PG Care Time/CCT Total # of Minutes Spent Total Time Spent with Patient: Total time spent is greater than 50% in coordination of care (as documented) at patient's floor/unit and/or counseling patient: Coding Level of Care Code 63738 SUB INP/OBS CARE 50MIN Diagnoses Dystonia G24.9 Elevated troponin R77.8 Bipolar 1 disorder F31.9 Acute tonsillitis J03.90 Pharyngitis/tonsillitis etiology: unspecified etiology (4) Acute tonsillitis Pharyngitis/tonsillitis etiology: unspecified etiology Qualified Code(s): J03.90 - Acute tonsillitis, unspecified
[2022-07-02] MEDS: diphenhydrAMINE 50 MG/ML VIAL IV PRN ×2 (15:47→21:01)
[2022-07-02 16:53] LABS: Lyme Ab IgG w/WB Rflx Negative (Negative); Lyme Ab IgM w/WB Rflx Negative (Negative)
[2022-07-02] MEDS ORDERED: GADOBUTROL 65ML VIAL IV ONE (17:09)
--- NOTE | 2022-07-02 17:29 | XCELERA ---
[id number] [id number]
[2022-07-02] MEDS: LITHIUM CARBONATE 300 MG TAB PO SCH (17:51)
--- NOTE | 2022-07-02 19:29 | Magnetic Resonance Report ---
THORACIC SPINE MRI WITH AND WITHOUT CONTRAST, LUMBAR SPINE MRI WITH AND WITHOUT CONTRAST HISTORY: weakness TECHNIQUE: Multiplanar multisequence MRI of the thoracic and lumbar spine was performed both before a nd after the intravenous administration of 12 cc of Gadavist contrast. COMPARISON: None. FINDINGS: THORACIC SPINE MRI: No fracture or subluxation. Disc spaces are preserved for age. There is normal ma rrow signal intensity seen throughout the visualized osseous structures. Paravertebral soft tissues a re unremarkable. The thoracic spinal cord is normal in course, caliber, and signal intensity. No susp icious osseous lesions. No paraspinal or epidural masses or fluid collections identified. Postcontras t sequences show no areas of abnormal enhancement. No disc herniations. No significant central canal or neural foraminal narrowing. LUMBAR SPINE MRI: No fracture or subluxation. Disc spaces are preserved for age. There is normal kristin ow signal intensity seen throughout the visualized osseous structures. Paravertebral soft tissues are unremarkable. The conus terminus at the T12-L1 disc space level. No suspicious osseous lesions. No p araspinal or epidural masses or fluid collections identified. Postcontrast sequences show no areas of abnormal enhancement. No disc herniations. No significant central canal or neural foraminal narrowin g. The visualized sacrum is intact. Incidental note is made of a fatty filum terminale. This measures up to 2 mm in thickness. However, the evidence for tethered cord. IMPRESSION: 1. Essentially normal thoracic and lumbar spine MRI. 2. No abnormal enhancement. 3. Incidental note is made of a small fatty filum terminale. However, no evidence for a tethered cord . ACT 112: Negative or not required by law. Electronically signed by: Angel Flores M.D. 07/02/2022 7:27 PM
[2022-07-03 06:55] LABS: Basophils # (auto) 0.02 K/uL (0-0.2); Basophils % (auto) 0.2 %; Eosinophils # (auto) 0.07 K/uL (0-0.50); Eosinophils % (auto) 0.6 %; Hematocrit (blood only) 40.8 % (42.0-52.0); Hemoglobin 13.4 g/dl (14.0-18.0); Immature Granulocytes # (auto) 0.06 K/uL (0.01-0.20); Immature Granulocytes % (auto) 0.5 %; Lymphocytes # (auto) 3.23 K/uL (1.2-3.4); Lymphocytes % (auto) 27.5 %; Mean Corpuscular Hemoglobin 27.3 pg (25.0-34.0); Mean Corpuscular Hgb Conc 32.8 g/dL (32.0-36.0); Mean Corpuscular Volume 83.3 fL (80.0-100.0); Mean Platelet Volume 9.9 fL (9.4-12.4); Monocytes # (auto) 0.89 K/uL (0.11-0.59); Monocytes % (auto) 7.6 %; Neutrophils # (auto) 7.48 K/uL (1.40-6.50); Neutrophils % (auto) 63.6 %; Platelet Count 314 K/uL (130-400); RDW Coefficient of Variation 12.5 % (11.5-14.5); RDW Standard Deviation 37.9 fL (36.4-46.3); White Blood Count 11.75 K/ul (4.8-10.8)
[2022-07-03 07:17] LABS: Albumin Globulin Ratio 1.3 (0.9-2); BUN Creatinine Ratio 20.2 (10-20); Bilirubin,Total 0.5 mg/dl (0.2-1.0); Calcium 9.3 mg/dl (8.6-10.3); Creatinine Clr Calc Pharmacy 169.8 ml/min; Est GFR (African American) 141.7 ml/min; Est GFR (Non-African American) 122.2 ml/min; Magnesium 2.3 mg/dl (1.7-2.4); Phosphorus 4.5 mg/dl (2.5-4.9)
[2022-07-03] MEDS: diphenhydrAMINE 50 MG/ML VIAL IV PRN ×3 (07:21→20:14)
[2022-07-03] MEDS: LORATADINE 10 MG TAB PO SCH (09:04)
[2022-07-03] MEDS: dexAMETHasone 6 MG in SYRINGE 0 ML IV SCH (11:24)
--- NOTE | 2022-07-03 11:26 | Neurology Consultation ---
Date of Consultation July 03, 2022 Assessment & Plan (1) Dystonia: Impression: The patient reports having speech disturbance, swallowing difficulty, thickness feeling of the tongue, with occasional neck and upper extremity muscle contractions. There is a possibility of a dystonic reaction to neuroleptic medications, however, there is no obvious physical examination findings to suggest dystonia, or tardive dyskinesia at this time. Intermittent and atypical symptoms without physical examination abnormality, raise the possibility of nonorganic etiology. Recommendations: I agree with holding Seroquel and Calypta at this time with psychiatry follow- up. Benadryl and Cogentin as recommended by psychiatry. If symptoms worsen over time, movement disorder clinic follow-up should be considered. (2) Difficulty in swallowing: Impression: The patient reports having intermittent swallowing difficulty for last few days. However, he has been eating and drinking well without any difficulties today. There is no neurological finding to suggest primary neuro pathology. Dystonic reaction to psychotropic medication might be considered in differential, however, nonorganic etiology is more likely. Recommendations: As seen above. (3) Bipolar 1 disorder: Impression: The patient has been treated for bipolar disorder on Seroquel, lithium, and Calypta was added to treatment 6 weeks ago. The patient denies worsening symptoms, however, recently he has been more tearful. (4) Leg weakness, bilateral: Impression: Initially reported generalized weakness as well as ambulation difficulty has been improved mostly. There is no neurological deficit at this time. The patient can ambulate independently. There is no physical examination findings to suggest Guillain-Bliss disease, or other inflammatory neuromuscular disorder. Recommendations: Physical therapy evaluation. (5) Speech disturbance: Impression: The patient shows intermittent atypical speech disturbance, lisp like talking pattern, without abnormal tongue or muscle contractions, which is highly unusual for dystonic reaction or tardive dyskinesia. Recommendations: As seen above. Plan As seen above. Thank you for the consultation. History of Present Illness Reason for Consultation: Leg weakness, speech disturbance Requesting Physician: Pedrito Maynard MD Attending Physician: Pedrito Maynard History of Present Illness The patient is a 22-year-old [employer] student from [facility], with history of bipolar disorder on psychotropic medications, who presented the emergency department initially 2 days ago, for swallowing difficulty, sense of swollen tongue and was discharged home on antibiotic and steroid with presumed diagnosis of tonsillitis. The patient reported improvement of speech difficulty while he was in the emergency department before discharge. After discharge, the patient felt generalized weakness, visual disturbance, recurrence of atypical speech disturbance, difficulty with walking, and was brought to emergency department yesterday. Initial evaluation including routine labs, tox screen, urinalysis, brain MRI, EKG, and troponin levels were unremarkable and lithium level was infra-therapeutic. Brain MRI did not show pathology. Based on having history of pericarditis, the patient also had echocardiogram, which showed no abn ormality. The patient has been treated by [facility] for bipolar disorder, on the lithium and Seroquel for last 2 years. Because of the increased sedation, Seroquel dosage was decreased from 400 mg down to 100 mg 6 weeks ago, and lumateperone was started at the same time. The patient was feeling well until last Wednesday. However, he also reports being tearful more than usual recently. He denies any recent worsening depression and manic symptoms. He was seen by psychiatry on this admission, and dystonic reaction was considered in differential diagnosis. Seroquel and Calypta have been on hold since admission. The patient was complaining of difficulty with ambulation, as well as generalized weakness, and neurology consultation was requested further evaluation. Thoracic and lumbar spine MRIs were done recently, which did not show any obvious pathology. The patient has no focal neurological deficit. He denies any sensory symptoms, paresthesias, sphincter dysfunction, saddle anesthesia, neck and low back pain, sensory leveling, any recent fall or trauma, cognitive dysfunction, seizure or seizure-like activities, or myalgias. He reports occasional extremity movements and muscle spasms mostly in neck and upper extremities which are not apparent at this time. The patient has been able to eat and swallow without difficulties since admission. Initially reported visual disturbance has been improved. He has no visual field deficit. He also denies any double vision or eye movement difficulty. The patient has no history of neurotoxic substance use. He is able to ambulate today without difficulty. During physical examination, he began showing some speech disturbance, lisp-like talking without any abnormal tongue movements, lip movements, or other dystonic muscle contractions. We have not noticed any unusual muscle movements including choreoathetoid activity during our evaluation. I have reviewed the patient's chart including imaging studies and visualized t hem personally. I have discussed the case with the patient and answered his questions in detail. Allergies Allergy/AdvReac Type Severity Reaction Status Date / Time No Known Allergies Allergy Verified 06/30/22 14:45 Home Medications Medication Instructions Recorded Confirmed Type amoxicillin 875 mg-potassium 1 tab PO BID #20 tabs 06/30/22 07/01/22 Rx clavulanate 125 mg tablet prednisone 20 mg tablet 20 mg PO BID 5 days #10 tabs 06/30/22 07/01/22 Rx lithium carbonate 600 mg capsule 1,200 mg PO QDD 07/01/22 07/01/22 History lorazepam 0.5 mg tablet 0.5 mg PO DAILY PRN Anxiety 07/01/22 07/01/22 History lumateperone 42 mg capsule 42 mg PO QPM 07/01/22 07/01/22 History (Caplyta) propranolol 10 mg tablet 10 mg PO DAILY PRN Anxiety 07/01/22 07/01/22 History quetiapine 100 mg tablet 100 mg PO HS 07/01/22 07/01/22 History Patient History Medical History Bipolar disorder Chest pain Morbid obesity Myocarditis Myopericarditis Pericarditis Family History Mother Stroke Social History Smoking Status: Never smoker Tobacco Type: Cigarettes Second Hand Exposure: No; Do You Dip or Chew Tobacco: No; Hx Alcohol Use: No Hx Substance Use: No Preferred Language: Djiboutian Communication Ability: Effective Maintainer Central Office Required: No Beliefs That Will Affect Care: None Current Living Situation: Other Current Living Situation Comment: [employer] student with roommate Feels Safe at Home: Yes Assistive Devices: None Review of Systems Review of Systems: All systems reviewed & are unremarkable except as noted in HPI & below Physical Exam Physical Exam: General Examination: Constitutional: Well developed overweight person in no acute distress. HEENT: Normal exam with inspection. CV: Hearth rhythm is regular. Neck: Supple, no carotid bruits. Lungs: Non-labored and comfortable breathing. Abdomen: Soft, non-tender, non-distended. Skin: No rash or ecchymosis. Extremities: No edema or cyanosis NEUROLOGICAL EXAMINATION: Mental Status: Alert and oriented to place, person and time. Cranial Nerves: II-XII are intact. No nystagmus. Funduscopy: Normal looking optic discs. Motor: 5/5 in all extremities without asymmetry except 4+/5 strength in hand user experience designer and neck flexors bilaterally with likely poor effort. Tone: Normal without spasticity or rigidity. Sensory: Intact to all sensory modalities. No sensory leveling, or saddle anesthesia. Coordination: No dysmetria with FTN testing. Speech: Fluent. Comprehension is intact. After initial evaluation, the patient showed some atypical speech disturbance, lisp like talking without additional abnormal muscle contractions or tongue movements. Gait: Normal. No ataxia or abnormal walking pattern. Romberg: negative Musculoskeletal: Normal muscle bulk, no atrophy. There is no abnormal muscle contractions, fasciculations, dystonic or choreoathetoid movements. DTRs: 2+ all without asymmetry. No Babinsky. Results & Data Vital Signs (Past 12 Hours) Vital Signs Temp Pulse Pulse Pulse Resp BP Pulse Ox 07/03/22 09:38 63 07/03/22 08:10 36.7 C 72 18 132/80 95 07/03/22 03:37 36.7 C 61 18 104/54 L 95 O2 Del Method 07/03/22 09:38 07/03/22 08:10 Room Air 07/03/22 03:37 Room Air Laboratory Results Laboratory Results - last 24 hr 07/02/22 07/02/22 07/02/22 14:53 14:53 14:53 WBC RBC Hgb Hct MCV MCH MCHC RDW Std Deviation RDW Coeff of J Luis Plt Count MPV Immature Gran % (Auto) Neut % (Auto) Lymph % (Auto) Canadian % (Auto) Eos % (Auto) Baso % (Auto) Neut # (Auto) Lymph # (Auto) Canadian # (Auto) Eos # (Auto) Baso # (Auto) Immature Gran # (Auto) Sodium Potassium Chloride Carbon Dioxide Anion Gap BUN Creatinine Est Cr Clr Drug Dosing Est GFR ( Amer) Est GFR (Non-Af Amer) BUN/Creatinine Ratio Glucose Calcium Phosphorus Magnesium Total Bilirubin AST ALT Alkaline Phosphatase Troponin I High Sens 29.2 H D Total Protein Albumin Globulin Albumin/Globulin Ratio Tryptase DEEPIKA Screen Pending Complement C4 Pending Lyme Disease IgG Ab Negative Lyme Disease IgM Ab Negative 07/02/22 07/02/22 07/03/22 14:53 19:59 06:30 WBC 11.75 H RBC 4.90 Hgb 13.4 L Hct 40.8 L MCV 83.3 MCH 27.3 MCHC 32.8 RDW Std Deviation 37.9 RDW Coeff of J Luis 12.5 Plt Count 314 MPV 9.9 Immature Gran % (Auto) 0.5 Neut % (Auto) 63.6 Lymph % (Auto) 27.5 Canadian % (Auto) 7.6 Eos % (Auto) 0.6 Baso % (Auto) 0.2 Neut # (Auto) 7.48 H Lymph # (Auto) 3.23 Canadian # (Auto) 0.89 H Eos # (Auto) 0.07 Baso # (Auto) 0.02 Immature Gran # (Auto) 0.06 Sodium Potassium Chloride Carbon Dioxide Anion Gap BUN Creatinine Est Cr Clr Drug Dosing Est GFR ( Amer) Est GFR (Non-Af Amer) BUN/Creatinine Ratio Glucose Calcium Phosphorus Magnesium Total Bilirubin AST ALT Alkaline Phosphatase Troponin I High Sens 18.5 D Total Protein Albumin Globulin Albumin/Globulin Ratio Tryptase Pending DEEPIKA Screen Complement C4 Lyme Disease IgG Ab Lyme Disease IgM Ab 07/03/22 06:30 WBC RBC Hgb Hct MCV MCH MCHC RDW Std Deviation RDW Coeff of J Luis Plt Count MPV Immature Gran % (Auto) Neut % (Auto) Lymph % (Auto) Canadian % (Auto) Eos % (Auto) Baso % (Auto) Neut # (Auto) Lymph # (Auto) Canadian # (Auto) Eos # (Auto) Baso # (Auto) Immature Gran # (Auto) Sodium 138 Potassium 4.0 Chloride 106 Carbon Dioxide 26 Anion Gap 6 BUN 18 Creatinine 0.89 Est Cr Clr Drug Dosing 169.8 Est GFR ( Amer) 141.7 Est GFR (Non-Af Amer) 122.2 BUN/Creatinine Ratio 20.2 H Glucose 102 H Calcium 9.3 Phosphorus 4.5 Magnesium 2.3 Total Bilirubin 0.5 AST 14 ALT 28 Alkaline Phosphatase 107 H Troponin I High Sens Total Protein 7.0 Albumin 4.0 Globulin 3.0 Albumin/Globulin Ratio 1.3 Tryptase DEEPIKA Screen Complement C4 Lyme Disease IgG Ab Lyme Disease IgM Ab Diagnostic Findings Chest X-Ray 07/01/22 18:28 XR chest 1V portable CLINICAL HISTORY: Chest pain. COMPARISON STUDY: Chest CT August 25, 2021 and chest radiograph June 30, 2022. FINDINGS: Patient is rotated. Lung volumes are normal. Lungs are clear. There is no pneumothorax or pleural effusion. Cardiac size is stable. Mediastinal contours are normal. There is no evidence for pulmonary edema. IMPRESSION: No acute cardiopulmonary findings. No significant change in appearance of the chest. ACT 112: Negative or not required by law. Electronically signed by: Ramos Worthington M.D. 07/01/2022 7:19 PM Brain MRI 07/01/22 19:08 Exam(s): MRI HEAD W/WO Contrast IV Amt: 12cc Gadavist EXAM: MR Head Without and With Intravenous Contrast CLINICAL HISTORY: Reason for exam: dysarthria. TECHNIQUE: Magnetic resonance images of the head/brain without and with intravenous contrast in multiple planes. CONTRAST: Patient received 12cc Gadavist of IV contrast COMPARISON: No relevant prior studies available. FINDINGS: Brain: Unremarkable. No mass. No hemorrhage. No acute infarct. Ventricles: Unremarkable. No ventriculomegaly. Bones/joints: Unremarkable. Sinuses: Unremarkable as visualized. No acute sinusitis. Mastoid air cells: Unremarkable as visualized. No mastoid effusion. Orbits: Unremarkable as visualized. IMPRESSION: Normal head/brain MRI. Electronically signed by: Ayden Pastor MD 07/01/22 23:15 PM Lumbar Spine MRI 07/02/22 15:40 THORACIC SPINE MRI WITH AND WITHOUT CONTRAST, LUMBAR SPINE MRI WITH AND WITHOUT CONTRAST HISTORY: weakness TECHNIQUE: Multiplanar multisequence MRI of the thoracic and lumbar spine was performed both before and after the intravenous administration of 12 cc of Gadavist contrast. COMPARISON: None. FINDINGS: THORACIC SPINE MRI: No fracture or subluxation. Disc spaces are preserved for age. There is normal marrow signal intensity seen throughout the visualized osseous structures. Paravertebral soft tissues are unremarkable. The thoracic spinal cord is normal in course, caliber, and signal intensity. No suspicious osseous lesions. No paraspinal or epidural masses or fluid collections identified. Postcontrast sequences show no areas of abnormal enhancement. No disc herniations. No significant central canal or neural foraminal narrowing. LUMBAR SPINE MRI: No fracture or subluxation. Disc spaces are preserved for age. There is normal marrow signal intensity seen throughout the visualized osseous structures. Paravertebral soft tissues are unremarkable. The conus terminus at the T12-L1 disc space level. No suspicious osseous lesions. No paraspinal or epidural masses or fluid collections identified. Postcontrast sequences show no areas of abnormal enhancement. No disc herniations. No significant central canal or neural foraminal narrowing. The visualized sacrum is intact. Incidental note is made of a fatty filum terminale. This measures up to 2 mm in thickness. However, the evidence for tethered cord. IMPRESSION: 1. Essentially normal thoracic and lumbar spine MRI. 2. No abnormal enhancement. 3. Incidental note is made of a small fatty filum terminale. However, no evidence for a tethered cord. ACT 112: Negative or not required by law. Electronically signed by: Angel Flores M.D. 07/02/2022 7:27 PM Thoracic Spine MRI 07/02/22 15:40 THORACIC SPINE MRI WITH AND WITHOUT CONTRAST, LUMBAR SPINE MRI WITH AND WITHOUT CONTRAST HISTORY: weakness TECHNIQUE: Multiplanar multisequence MRI of the thoracic and lumbar spine was performed both before and after the intravenous administration of 12 cc of Gadavist contrast. COMPARISON: None. FINDINGS: THORACIC SPINE MRI: No fracture or subluxation. Disc spaces are preserved for age. There is normal marrow signal intensity seen throughout the visualized osseous structures. Paravertebral soft tissues are unremarkable. The thoracic spinal cord is normal in course, caliber, and signal intensity. No suspicious osseous lesions. No paraspinal or epidural masses or fluid collections identified. Postcontrast sequences show no areas of abnormal enhancement. No disc herniations. No significant central canal or neural foraminal narrowing. LUMBAR SPINE MRI: No fracture or subluxation. Disc spaces are preserved for age. There is normal marrow signal intensity seen throughout the visualized osseous structures. Paravertebral soft tissues are unremarkable. The conus terminus at the T12-L1 disc space level. No suspicious osseous lesions. No paraspinal or epidural masses or fluid collections identified. Postcontrast sequences show no areas of abnormal enhancement. No disc herniations. No significant central canal or neural foraminal narrowing. The visualized sacrum is intact. Incidental note is made of a fatty filum terminale. This measures up to 2 mm in thickness. However, the evidence for tethered cord. IMPRESSION: 1. Essentially normal thoracic and lumbar spine MRI. 2. No abnormal enhancement. 3. Incidental note is made of a small fatty filum terminale. However, no eviden ce for a tethered cord. ACT 112: Negative or not required by law. Electronically signed by: Angel Flores M.D. 07/02/2022 7:27 PM ECHO-- Unremarkable (2) Difficulty in swallowing Dysphagia type: unspecified Qualified Code(s): R13.10 - Dysphagia, unspecif ied
[2022-07-03] MEDS ORDERED: PROCHLORPERAZINE 5 MG in SYRINGE 4 ML IV PRN (13:21)
[2022-07-03] MEDS ORDERED: PROCHLORPERAZINE 5 MG in SYRINGE 4 ML IV ONE (13:30)
[2022-07-03] MEDS ORDERED: diphenhydrAMINE 50 MG/ML VIAL IV STA (14:44)
[2022-07-03 14:46] LABS: EBV Nuclear Ag Antibody <18.00 U/mL; EBV Virus Capsid Ag IgG Ab <18.00 U/mL; Epstein Barr Virus Early Ag Ab <9.00 U/mL
--- NOTE | 2022-07-03 15:31 | Allergy & Immunology Consult ---
Date of Consultation July 03, 2022 Assessment & Plan (1) Angioedema: The cause of the patient's tongue swelling (swollen compared to reported baseline, with intermittent dysphonia) is not entirely clear. As noted in the 07/02/22 Psychiatry consult note, acute dystonia in itself can result in laryngeal muscle spasm and tongue protrusion. However, to screen for a possible histamine and/or bradykinin mediated cause of angioedema, further lab work can be obtained (in addition to the pending tryptase and C4 levels). Regarding bradykinin mediated causes of angioedema (e.g., hereditary angioedema and/or acquired angioedema, both of which are less likely given the unsupportive personal and family history of recurring bouts of swelling), additional labs include C1 esterase, C1 esterase function, and C1q level. In case of a possible component of chronic spontaneous urticaria (a histamine mediated cause of angioedema), it is reasonable to also trial a course of high-dose long-acting antihistamine until symptom resolution and/or time of 3-month follow-up appointment with Allergy/Immunology on an outpatient basis. -Obtain labs (in addition to tryptase and C4 level): C1 esterase, C1 esterase function, and C1q level -20mg Zyrtec BID (to be continued until symptom resolution and/or time of 3- month follow-up appointment with Allergy/Immunology on an outpatient basis) -If too drowsy on this regimen, can substitute individual pills 1:1 for Nadine -Continue management for acute dystonia (as advised by Psychiatry, Neurology, etc.) History of Present Illness Reason for Consultation: "swollen tongue" Attending Physician: Pedrito Maynard History of Present Illness The patient is a 22-year-old man with bipolar disorder on numerous psychiatric medications (including Seroquel, lithium, and Caplyta) who was recently admitted to the hospital for inpatient monitoring/management on 07/01/22 of suspected acute dystonia. He has never before developed an episode of tongue swelling (nor is there a personal or family medical history of unexplained bouts of swelling of any other parts of the body). However, beginning Wednesday (06/30/22) he reports developing unexplained vision blurriness as well as some development of tongue swelling which would make his speech sound abnormal. He has not identified any particular foods or triggers that led to onset of his tongue swelling. He reports that the tongue swelling would come and go (lasting for variable periods of time), and ultimately the next day he presented to the hospital for further evaluation/management. Since being in the hospital he has not had any difficulties with eating or drinking, though he still notes his phonating is periodically abnormal ("sounding like a lisp"). Thus far, a tryptase level and a C4 level have been obtained on 07/02/22, though these are still pending at this time. Allergy/Immunology is subsequently being consulted for further assessment/management of his swollen tongue. Allergies Allergy/AdvReac Type Severity Reaction Status Date / Time No Known Allergies Allergy Verified 06/30/22 14:45 Home Medications Medication Instructions Recorded Confirmed Type amoxicillin 875 mg-potassium 1 tab PO BID #20 tabs 06/30/22 07/01/22 Rx clavulanate 125 mg tablet prednisone 20 mg tablet 20 mg PO BID 5 days #10 tabs 06/30/22 07/01/22 Rx lithium carbonate 600 mg capsule 1,200 mg PO QDD 07/01/22 07/01/22 History lorazepam 0.5 mg tablet 0.5 mg PO DAILY PRN Anxiety 07/01/22 07/01/22 History lumateperone 42 mg capsule 42 mg PO QPM 07/01/22 07/01/22 History (Caplyta) propranolol 10 mg tablet 10 mg PO DAILY PRN Anxiety 07/01/22 07/01/22 History quetiapine 100 mg tablet 100 mg PO HS 07/01/22 07/01/22 History Patient History Medical History (Updated 07/03/22 @ 15:45 by Norm Blancas MD) Angioedema Bipolar disorder Chest pain Morbid obesity Myocarditis Myopericarditis Pericarditis Family History Mother Stroke Social History Smoking Status: Never smoker Tobacco Type: Cigarettes Second Hand Exposure: No; Do You Dip or Chew Tobacco: No; Hx Alcohol Use: No Hx Substance Use: No Preferred Language: Polish Communication Ability: Effective Real Estate Rep Required: No Beliefs That Will Affect Care: None Current Living Situation: Other Current Living Situation Comment: [employer] student with roommate Feels Safe at Home: Yes Assistive Devices: None Review of Systems Review of Systems: I reviewed the history of the following medical systems: constitutional, eyes, ears/nose/mouth/throat, respiratory, cardiovascular, gastrointestinal, genitourinary, musculoskeletal, integumentary, neurologic, psychiatric, endocrinologic, hematologic/lymphatic, and allergic/immunologic. Positive and/or significant negative findings are as above, otherwise, ROS was normal. Physical Exam Physical Exam: General: NAD, well-appearing young man resting in hospital bed, pleasant and cooperative, engaged in interview and exam HEENT: mild degree of tongue swelling (per reported baseline) with intermittent dysphonia; NC/AT, MMM, no tonsilar swelling/erythema, no conjunctival injection, no nasal discharge Neck: supple, FROM, no LAD Cardiac: normal S1 and S2, RRR, no M/R/G, brisk cap refill < 2 seconds Lungs: CTAB, no W/R/R, normal work of breathing Abdomen: normal BS, soft, NT/ND, no hepatosplenomegaly, no masses Extremities: 3+ pulses, no gross deformities, no cyanosis/edema Neuro: no focal deficits, appropriate muscle strength and tone Skin: no rashes/lesions, clean/dry/intact Results & Data Vital Signs (Past 12 Hours) Vital Signs Temp Pulse Pulse Pulse Resp BP Pulse Ox 07/03/22 12:22 36.9 C 74 19 109/76 95 07/03/22 09:38 63 07/03/22 08:10 36.7 C 72 18 132/80 95 07/03/22 03:37 36.7 C 61 18 104/54 L 95 O2 Del Method 07/03/22 12:22 Room Air 07/03/22 09:38 07/03/22 08:10 Room Air 07/03/22 03:37 Room Air Laboratory Results Laboratory Tests 07/02/22 07/02/22 14:53 14:53 Tryptase Pending Complement C4 P[place] [address] IN/OBS CONSULT LVL 4,60M Patient Type New History Comprehensive Exam Comprehensive Medical Decision Making Moderate Complexity Diagnoses Angioedema T78.3XXA
[2022-07-03] MEDS ORDERED: CETIRIZINE HCL 10 MG TABLET PO ONE (16:15)
[2022-07-03] MEDS: LITHIUM CARBONATE 300 MG TAB PO SCH (16:31)
[2022-07-03] MEDS: MELATONIN 3 MG TAB PO PRN (21:33)
--- NOTE | 2022-07-03 21:57 | Hospitalist Progress Note ---
Date of Service July 03, 2022 Assessment & Plan (1) Dystonia: Plan: 22 M w/ BPD1 on (Seroquel, [place] and [place]) presenting with weakness, dysarthria, and dark spots in b/l visual field. admitted for further work-up and suspected dystonia Weakness, dystonia, dysarthria DDx includes dystonia; given less prominent tremor and other Patient also with dysarthria and some tongue swelling which is not his normal baseline Due to tongue swelling? Allergy/angioedema, no lip swelling Benadryl, steroids, cetirizine ordered. C4 level and tryptase are pending. Cogentin deferred while using Benadryl Psych consulted for evaluation of dystonia, may have some element of this but also does not clearly explain his lower extremity weakness and symptoms. MRI brain normal, no other focal neurologic deficits other than lower extremity weakness CThead negative Management of psychotropics per psychiatry, appreciate recommendations and insight. [place] not a true trough level, may have been supratherapeutic but suspect this is not causing his overall presentation Lower extremities are nonflaccid, although strength is symmetrically weak. No clonus, Achilles/patellar reflex intact. Given lower progressive symptoms and some upper discussed with neurology, will obtain MRI with and without contrast of both the thoracic and lumbar spine tonight and continue current work-up. If etiology remains unclear, will consult and evaluate for GBS / inflammatory variants at that time although this seems less likely with intact reflexes this morning COVID-negative His father asked about vasculitis, or behcets as this is a condition in his family. He currently is not exhibiting any symptoms. will closely monitor, will continue benadryl and start zyrtec. for urticaria, though his symptoms could be explained by dystonia. Elevated troponin Downtrending, without chest pain Echo pending No EKG changes, no chest pain. Follow echo for? Pericarditis, CRP is mildly elevated. Lyme is pending Bipolar 1 disorder On lithium, quetiapine, lumateperone started 6 weeks ago, follows with [place] not to trough level, see as noted Psychiatry following, appreciate recommendations On Benadryl for? Tongue swelling, defer Cogentin at this time Tonsillitis Patient recently on Augmentin CTneck: No acute inflammatory changes or fluid collection to suggest abscess, enlargement of adenoid tonsils? Tonsillitis, maxillary sinus thickening EBV panel is pending Monoscreen is negative COVID-negative Group A strep negative CODE STATUS: Full code Disposition: Medical telemetry Diet passed speech study, may have diet as tolerated but if tongue swelling/concern for aspiration arises make n.p.o. and restart IVF (2) Elevated troponin: (3) Bipolar 1 disorder: (4) Acute tonsillitis: Admission and Anticipated Discharge Date Admission Date: July 01, 2022 Subjective 22 yorody reports that his symptoms appear better after starting the zyrtec. He asks about behcet as this is a condition in his family, but he denies any ulcers in his mouth. Review of Systems Review of Systems: All systems reviewed & are unremarkable except as noted in HPI & below Physical Exam Physical Exam: General:Does not appear to be withdrawn. Sitting upright in no acute distress. HEENT: Atraumatic, normocephalic. Vision/hearing intact. + Tongue swelling without wheezing/airway compromise/uvular deflection, no ulcerations. Pulm: CTAB A&P. -wheezes, -rales, -rhonchi. Symmetrical chest rise. No increased work of breathing. No respiratory distress. Cardiac: RRR, -mrg. Radial pulses intact and symmetrical. Abdominal: Nontender, nondistended, soft. BS present. Extremities: Ankle dorsiflexion/plantarflexion 4 -/5 bilaterally, PT pulse intact. Results & Data Results & Data Vital Signs (Past 12 Hours) Vital Signs Temp Pulse Pulse Pulse Resp BP Pulse Ox 07/03/22 19:58 36.6 C 65 16 130/71 96 07/03/22 16:29 36.6 C 71 18 126/78 96 07/03/22 15:42 87 07/03/22 12:22 36.9 C 74 19 109/76 95 O2 Del Method 07/03/22 19:58 Room Air 07/03/22 16:29 Room Air 07/03/22 15:42 07/03/22 12:22 Room Air PG Care Time/CCT Total # of Minutes Spent Total Time Spent with Patient: Total time spent is greater than 50% in coordination of care (as documented) at patient's floor/unit and/or counseling patient: Coding Level of Care Code 20839 SUB INP/OBS CARE 2/35MIN Diagnoses Dystonia G24.9 Elevated troponin R77.8 Bipolar 1 disorder F31.9 Acute tonsillitis J03.90 Pharyngitis/tonsillitis etiology: unspecified etiology (4) Acute tonsillitis Pharyngitis/tonsillitis etiology: unspecified etiology Qualified Code(s): J03.90 - Acute tonsillitis, unspecified
[2022-07-04 06:42] LABS: Hematocrit (blood only) 42.7 % (42.0-52.0); Hemoglobin 13.7 g/dl (14.0-18.0); Mean Corpuscular Hemoglobin 27.1 pg (25.0-34.0); Mean Corpuscular Hgb Conc 32.1 g/dL (32.0-36.0); Mean Corpuscular Volume 84.4 fL (80.0-100.0); Mean Platelet Volume 9.9 fL (9.4-12.4); Platelet Count 324 K/uL (130-400); RDW Coefficient of Variation 12.5 % (11.5-14.5); RDW Standard Deviation 37.4 fL (36.4-46.3); Red Blood Count 5.06 M/uL (4.70-6.10); White Blood Count 11.46 K/ul (4.8-10.8)
[2022-07-04 07:25] LABS: Albumin Globulin Ratio 1.4 (0.9-2); BUN Creatinine Ratio 19.3 (10-20); Bilirubin,Total 0.5 mg/dl (0.2-1.0); C Reactive Protein 0.52 mg/dl (0-0.5); Calcium 9.1 mg/dl (8.6-10.3); Creatinine Clr Calc Pharmacy 172.6 ml/min; Est GFR (African American) 142.3 ml/min; Est GFR (Non-African American) 122.8 ml/min; Globulin 2.9 gm/dl (2.5-4.0); Magnesium 2.1 mg/dl (1.7-2.4); Phosphorus 4.8 mg/dl (2.5-4.9); Potassium 3.9 mmol/L (3.5-5.1); Total Protein 6.9 gm/dl (6.0-8.3)
[2022-07-04] MEDS: diphenhydrAMINE 50 MG/ML VIAL IV PRN ×2 (09:21→15:53)
[2022-07-04] MEDS ORDERED: CETIRIZINE HCL 10 MG TABLET PO ONE (09:25)
[2022-07-04] MEDS: dexAMETHasone 6 MG in SYRINGE 0 ML IV SCH (12:15)
--- NOTE | 2022-07-04 15:16 | Discharge Summary ---
Date of Service July 04, 2022 Admission HPI Per Admitting Provider Kamryn is a 22-year old with a PMH of BPD1 (on [place], Seroquel and [place]) who presented today for lower extremity weakness and vision changes (dark spots in bilateral medial visual grossman) that began at approximately 3 PM today. He recently presented to the ED yesterday for vague neurological symptoms. Work-up revealed possible tonsillitis on neck CT--he received steroids and Augmentin and was discharged home. Today, he reports that he was studying at [employer] when he suddenly felt fatigued, which worsened to the extent he was too tired to drive himself home an hour later. His roommate, who was with him, instead drove him home. He attempted to take a nap but instead grew weaker and started seeing "dark spots" in his medial visual grossman bilaterally, which concerned him. He then asked his roommate to meet him outside his apartment to drive him to the hospital but when the roommate pulled up outside, he found the patient leaning against the wall as he was unable to stand upright. His roommate then carried him to the car and brought him to the hospital. In the emergency room, vitals were within normal limits. However, he began to experience worsening left sided parietal headache, new onset neck and back pain, and neck twitching accompanied by a "heavy tongue." He denies confusion, chest pain, SOB, nausea, or abdominal pain. ROS+ b/l numbness and tingling in the feet. Labs were notable for slight leukocytosis of 13.32, slightly elevated alk phos-108, and elevated troponin at 63.3, which was triple previously measured troponin from the day before (20.2). CXR today was negative. He received IV be nztropine and IV lorazepam, after which the headache improved. On admission, he continues to report left-sided headache, which is improved from earlier. He denies any vision changes. ROS otherwise negative as above. MRI head completed prior to admission was negative for an acute intracranial process. Principal Diagnosis dystonia Discharge Exam General:Does not appear to be withdrawn. Sitting upright in no acute distress. HEENT: Atraumatic, normocephalic. Vision/hearing intact. + Tongue swelling without wheezing/airway compromise/uvular deflection, no ulcerations. Pulm: CTAB A&P. -wheezes, -rales, -rhonchi. Symmetrical chest rise. No increased work of breathing. No respiratory distress. Cardiac: RRR, -mrg. Radial pulses intact and symmetrical. Abdominal: Nontender, nondistended, soft. BS present. Extremities: Ankle dorsiflexion/plantarflexion 4 -/5 bilaterally, PT pulse intact. Discharge Data Allergies Allergy/AdvReac Type Severity Reaction Status Date / Time No Known Allergies Allergy Verified 06/30/22 14:45 Consultations 07/01/22 20:41 ED Decision to Admit Stat 07/01/22 22:14 Consult Psychiatry Routine 07/03/22 14:17 Consult Neurology Routine 07/03/22 14:41 Consult Allergy / Immunology Routine Ordered Studies 07/01/22 19:08 MR brain wo/w con Stat 07/02/22 15:40 MR lumbar spine wo/w con Urgent MR thoracic spine wo/w con Routine Hospital Course (1) Dystonia: 22 M w/ BPD1 on (Seroquel, [place] and [place]) presenting with weakness, dysarthria, and dark spots in b/l visual field. admitted for further work-up and suspected dystonia Weakness, dystonia, dysarthria DDx includes dystonia; given less prominent tremor and other Patient also with dysarthria and some tongue swelling which is not his normal baseline Due to tongue swelling? Allergy/angioedema, no lip swelling Benadryl, steroids, cetirizine ordered. C4 level and tryptase are pending. Psych consulted for evaluation of dystonia: appears largely due to seroquel and [place]. MRI brain normal, no other focal neurologic deficits other than lower extremity weakness CThead negative Management of psychotropics per psychiatry, appreciate recommendations and insight. [place] not a true trough level, may have been supratherapeutic but suspect this is not causing his overall presentation Lower extremities are nonflaccid, although strength is symmetrically weak. No clonus, Achilles/patellar reflex intact. Given lower progressive symptoms and some upper discussed with neurology, will obtain MRI with and without contrast of both the thoracic and lumbar spine tonight and continue current work-up. If etiology remains unclear, will consult and evaluate for GBS / inflammatory variants at that time although this seems less likely with intact reflexes this morning COVID-negative His father asked about vasculitis, or behcets as this is a condition in his family. He currently is not exhibiting any symptoms. will closely monitor, will continue benadryl and start zyrtec. for urticaria, though his symptoms could be explained by dystonia. On 07/04 Patient will be discharged with Benztropine for dystonia and will hold seroquel and [place] Will continueceterizine in case this is urticaria Elevated troponin Downtrending, without chest pain echo was normal Bipolar 1 disorder On lithium, quetiapine, lumateperone started 6 weeks ago, follows with [facility] continue lithium Tonsillitis Patient recently on Augmentin CTneck: No acute inflammatory changes or fluid collection to suggest abscess, enlargement of adenoid tonsils? Tonsillitis, maxillary sinus thickening EBV panel is pending Monoscreen is negative COVID-negative Group A strep negative CODE STATUS: Full code (2) Elevated troponin: (3) Bipolar 1 disorder: (4) Acute tonsillitis: Total Time Total Time Spent Total Time Spent (In Minutes): 32 Discharge Plan Discharge Items Patient Disposition: Home - Self-Care Reason For Visit: DYSARTHRIA, ELEVATED TROPONIN Discharge Diagnosis: dystonia Activity: Resume your previous activity Non-emergency contact: Primary Care Provider Call non-emergency contact if: you have any medication questions Follow-up/Referrals: [facility] [Primary Care Provider] - Diet: Regular Addtl Attending Provider Instructions: In case this is chronic spontaneous urticaria/ angioedema: 20mg Zyrtec BID for 3-months/ At this time you will have a follow-up appointment with Allergy/Immunology on an outpatient basis I agree with psychiatry in holding your Seroquel and [place] at this time. Please schedule a psychiatry follow-up. Continue congentin for 7 more days first dose tonight. Please return if symptoms come back. Please followup with [facility] in 1 week Pending Studies at Discharge: No Stand-Alone Forms: [facility], Smoking Cessation Medications and DC Order Prescriptions: New cetirizine 10 mg Tablet 20 mg PO BID 90 Days Qty: 360 0RF benztropine 1 mg tablet 1 mg PO BID Qty: 14 0RF Continued lithium carbonate 600 mg capsule 1,200 mg PO QDD Rx Instructions: take with evening meal propranolol 10 mg tablet 10 mg PO DAILY PRN (Reason: Anxiety) lorazepam 0.5 mg tablet 0.5 mg PO DAILY PRN (Reason: Anxiety) Discontinued amoxicillin-pot clavulanate 875-125 mg tablet 1 tab PO BID Qty: 20 0RF quetiapine 100 mg tablet 100 mg PO HS [place] 42 mg capsule 42 mg PO QPM Discharge Orders: Discharge Order (Routine); Ordered 07/04/22 Ordered By: Pedrito Maynard Admission Data Admit Date/Time: 07/01/22 22:14 Attending Provider: Pedrito Maynard Admit Provider: Mirian Reardon Primary Care Provider: [facility] Other Providers: Martha Valencia ; Ismael Bateman ; Viry Frank ; Tad Rojas ; Norm Blancas Other Interventions: Discharge Summary Assessment (RN) Last Done: 07/04/22 15:34 Coding Level of Care Code 20085 INP/OBS DISCH >30 MIN Diagnoses Dystonia G24.9 Elevated troponin R77.8 Bipolar 1 disorder F31.9 Acute tonsillitis J03.90 Pharyngitis/tonsillitis etiology: unspecified etiology
[2022-07-04] MEDS ORDERED: CETIRIZINE HCL 10 MG TABLET PO SCH (21:00)
[2022-07-06 15:37] LABS: Anti Nuclear Antibody Screen NEGATIVE (NEGATIVE)
== END 2022-07-04 16:13 | disposition home or self-care (01) | DRG 93 ==
LOC: ED 16:17 → EDINP 22:14 → SUATTDRO 22:14 → EDINP 07-02 01:42 → 2E 07-02 02:32
DX: R13.10 Dysphagia, unspecified; T78.3XXA Angioneurotic edema, initial encounter; J03.90 Acute tonsillitis, unspecified; Z79.899 Other long term (current) drug therapy; G24.9 Dystonia, unspecified; F31.9 Bipolar disorder, unspecified; R77.8 Other specified abnormalities of plasma proteins